=== PATIENT | female | born 1970 | race Caucasian/White ===

== ENCOUNTER 2021-04-15 07:45 | Inpatient (IN) | payer MEDICARE, MEDICAID ==
[~2021-04-15] VITALS: Ht 170.2 cm; Wt 61.6 kg
[2021-04-15] MEDS ORDERED: morphine INJ 10 MG/ML 1ML (SYR OR VIAL) IV STA (08:04)
[2021-04-15] MEDS ORDERED: ONDANSETRON 4 MG/2 ML (SDV) Z0FRAN IV PRN (08:15)
[2021-04-15] MEDS ORDERED: LACTATED RINGERS 1,000 ML IV ONE (08:15)
[2021-04-15] MEDS ORDERED: NS IV 500 ML 500 ML IV ONE (08:15)
--- NOTE | 2021-04-15 08:15 | ED General ---
General Chief Complaint: COVID19 Suspect/Confirmed Stated Complaint: WEAKNESS,SOB Nursing Triage Note: pPT BROUGHT IN BY [facility] WITH COMPLAINT OF COUGH, CP, SOA, AND VOMITING. PT WAS 76% RA ON ARRIVAL. Source of Information: Patient, EMS Exam Limitations: No Limitations History of Present Illness Date Seen by Provider: Apr 15, 2021 Time Seen by Provider: 07:46 Initial Comments Patient to the ER by [facility] with chief complaint of chest pain, hypoxia in the low 80s on room air, shortness of air vomiting. Patient states has been feeling sick for the past 2 days and has been vomiting. She has not been checked out since her symptoms began. She has had 2 doses of Covid vaccine although she does not member the name. Her primary care doctor, Dr. Valdovinos is in [place]. She is having some chest pain off and on for the past 2 days that she describes as a discomfort like something sitting on her chest. She denies a history of heart disease. She was given 324 mg of aspirin on route by EMS as well as a dose of nitroglycerin. Before the nitroglycerin was given EMS remarks that when they tried to stand her up she became diaphoretic and felt like she was going to pass out. She did not fully pass out or fall. She has no history of lung disease although he is a pack-a-day smoker. She is not diabetic. She has a history of hypertension but not hyperlipidemia. Mom had early onset coronary disease. No diarrhea constipation or dysuria. Allergies and Home Medications Allergies Coded Allergies: Penicillins (Verified Allergy, Unknown, 04/15/21) Patient Home Medication List Home Medication List Reviewed: Yes Acetaminophen (Tylenol) 325 Mg Tablet, 650 MG PO Q6H PRN for PAIN-MILD (1-4), (Reported) Entered as Reported by: MARIA ELENA HOGAN on 04/15/211538 Last Action: Continued Alprazolam (Alprazolam) 0.5 Mg Tablet, 0.5 MG PO BID PRN for ANXIETY, (Reported) Entered as Reported by: MARIA ELENA HOGAN on 04/15/211531 Last Action: Continued Buprenorphine HCl/Naloxone HCl (Buprenorphine-Nalox 8-2Mg Film) 1 Each Film, 1 FILM SQ TID, (Reported) Entered as Reported by: MARIA ELENA HOGAN on 04/15/211531 Last Action: Held Estradiol (Estradiol Patch Weekly 0.025mg/hr) 1 Each Patch.tdwk, 1 PATCH TOP TUES, (Reported) Entered as Reported by: MARIA ELENA HOGAN on 04/15/211531 Last Action: Held Fluticasone Propionate (Fluticasone Propionate) 16 Gm [place].susp, 1 SPRAY NS DAILY PRN for CONGESTION, (Reported) Entered as Reported by: MARIA ELENA HOGAN on 04/15/211531 Last Action: Continued Fluvoxamine Maleate (Fluvoxamine Maleate) 100 Mg Tablet, 100 MG PO BID, (Reported) Entered as Reported by: MARIA ELENA HOGAN on 04/15/211531 Last Action: Converted Hydroxyzine HCl (Hydroxyzine HCl) 50 Mg Tablet, 50-100 MG PO Q6H PRN for ITCHING, (Reported) Entered as Reported by: MARIA ELENA HOGAN on 04/15/211531 Last Action: Held Lisinopril (Lisinopril) 10 Mg Tablet, 10 MG PO DAILY, (Reported) Entered as Reported by: MARIA ELENA HOGAN on 04/15/211531 Last Action: Continued Meloxicam (Meloxicam) 15 Mg Tablet, 15 MG PO 1400, (Reported) Entered as Reported by: MARIA ELENA HOGAN on 04/15/211531 Last Action: Held Ondansetron HCl (Ondansetron HCl) 4 Mg Tablet, 4 MG PO Q8H PRN for NAUSEA/VOMITING-1ST LINE, (Reported) Entered as Reported by: MARIA ELENA HOGAN on 04/15/211531 Last Action: Held Oxybutynin Chloride (Oxybutynin Chloride ER) 5 Mg Tab.er.24, 5 MG PO DAILY PRN for OVERACTIVE BLADDER, (Reported) Entered as Reported by: MARIA ELENA HOGAN on 04/15/211531 Last Action: Continued Pregabalin (Pregabalin) 100 Mg Capsule, 100 MG PO TID, (Reported) Entered as Reported by: MARIA ELENA HOGAN on 04/15/211531 Last Action: Continued Sulfamethoxazole/Trimethoprim (Bactrim Ds Tablet) 1 Each Tablet, 1 EACH PO BID, (Reported) Entered as Reported by: MARIA ELENA HOGAN on 04/15/211538 Last Action: Held Review of Systems Review of Systems Constitutional: No chills, No diaphoresis EENTM: No ear discharge, No ear pain Respiratory: cough, short of breath; No wheezing Cardiovascular: No edema, No palpitations Gastrointestinal: No abdominal pain, No constipation, No diarrhea, No nausea Genitourinary: No discharge, No dysuria Musculoskeletal: No back pain, No joint pain Psychiatric/Neurological: Denies Anxiety, Denies Depressed All Other Systems Reviewed Negative Unless Noted: Yes Past Xsyfiqf-Hulqde-Ogcdpc Hx Patient Social History Tobacco Use?: Yes Tobacco type used: Cigars Smoking Status: Current Everyday Smoker Use of E-Cig and/or Vaping dev: No Substance use?: No Alcohol Use?: Yes Alcohol Frequency: Once in a while Pt feels they are or have been: No Immunizations Up To Date First/Initial COVID19 Vaccinat: JANUARY 2021 Second COVID19 Vaccination Mitchell: JANUARY 2021 Physical Exam-Suspected Sepsis Physical Exam Vital Signs Vital Signs - First Documented 04/15/21 13:35 FiO2 80 Capillary Refill : Less Than 3 Seconds Blood Pressure Mean: 77 Height, Weight, BMI Height: '" Weight: lbs. oz. kg; 25.00 BMI Method: General Appearance: Anxious, Moderate Distress Eyes: Bilateral Eye Normal Inspection, Bilateral Eye PERRL, Bilateral Eye EOMI HEENT: PERRL/EOMI, TMs Normal; No Pharynx Normal, No Moist Mucous Membranes Neck: Full Range of Motion, Normal Inspection, Non Tender Respiratory: Lungs Clear, Normal Breath Sounds, Accessory Muscle Use (Mild), Respiratory Distress (Moderate 72% on room air) Cardiovascular: Regular Rate, Rhythm, Normal Peripheral Pulses Gastrointestinal: Normal Bowel Sounds, No Organomegaly Back: Normal Inspection, No Vertebral Tenderness Extremity: Normal Capillary Refill, No Pedal Edema, Other (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) Neurologic/Psychiatric: Alert, Oriented x3 Skin: normal color, diaphoresis Focused Exam Sepsis Stage: Sepsis Possible Source: Pulmonary Lactate Level 04/15/21 08:14: Lactic Acid Level 1.68 04/15/21 14:22: Lactic Acid Level 0.66 Time of Focused Exam: 09:30 Respiratory: Lungs Clear, Normal Breath Sounds Cardiovascular: Regular Rate, Rhythm, No Edema Capillary Refill: Less Than 3 Seconds Peripheral Pulses: 2+ Radial Pulses (R), 2+ Radial Pulses (L) Skin: normal color, warm/dry Lactic Acid Level Within 3hrs of presentation: Admin fluids, Admin ABX, Blood cultures prior to ABX's, Focus exam, Lactate level Progress/Results/Core Measures Suspected Sepsis SIRS Temperature: Pulse: 95 Respiratory Rate: 20 Laboratory Tests 04/15/21 08:14: White Blood Count 16.6H Blood Pressure 92 /70 Mean: 77 04/15/21 08:14: Lactic Acid Level 1.68 04/15/21 14:22: Lactic Acid Level 0.66 Laboratory Tests 04/15/21 08:14: Creatinine 2.17H, INR Comment 1.3, Platelet Count 513H, Total Bilirubin 0.4 04/15/21 13:36: Creatinine 1.87H Results/Orders Lab Results Laboratory Tests Test 04/15/21 08:14 04/15/21 08:30 04/15/21 08:36 04/15/21 13:36 Range/Units White Blood Count 16.6 H 4.3-11.0 10^3/uL Red Blood Count 2.85 L 3.80-5.11 10^6/uL Hemoglobin 8.3 L 11.5-16.0 g/dL Hematocrit 24 L 35-52 % Mean Corpuscular Volume 83 80-99 fL Mean Corpuscular Hemoglobin 29 25-34 pg Mean Corpuscular Hemoglobin Concent 35 32-36 g/dL Red Cell Distribution Width 16.0 H 10.0-14.5 % Platelet Count 513 H 130-400 10^3/uL Mean Platelet Volume 8.5 L 9.0-12.2 fL Immature Granulocyte % (Auto) 2 % Neutrophils (%) (Auto) 89 H 42-75 % Lymphocytes (%) (Auto) 7 L 12-44 % Monocytes (%) (Auto) 1 0-12 % Eosinophils (%) (Auto) 0 0-10 % Basophils (%) (Auto) 0 0-10 % Neutrophils # (Auto) 14.8 H 1.8-7.8 10^3/uL Lymphocytes # (Auto) 1.1 1.0-4.0 10^3/uL Monocytes # (Auto) 0.2 0.0-1.0 10^3/uL Eosinophils # (Auto) 0.0 0.0-0.3 10^3/uL Basophils # (Auto) 0.0 0.0-0.1 10^3/uL Immature Granulocyte # (Auto) 0.4 H 0.0-0.1 10^3/uL Neutrophils % (Manual) 93 % Lymphocytes % (Manual) 5 % Monocytes % (Manual) 1 % Eosinophils % (Manual) 0 % Basophils % (Manual) 0 % Band Neutrophils 1 % Percent Immature Platelet Fraction 1.6 0.0-7.6 % Anisocytosis SLIGHT Elliptocytes SLIGHT Prothrombin Time 16.6 H 12.2-14.7 SEC INR Comment 1.3 0.8-1.4 Activated Partial Thromboplast Time 31 24-35 SEC D-Dimer 1.51 H 0.00-0.49 UG/ML Sodium Level 125 *L 126 L 135-145 MMOL/L Potassium Level 4.4 4.6 3.6-5.0 MMOL/L Chloride Level 94 L 98 98-107 MMOL/L Carbon Dioxide Level 17 L 15 L 21-32 MMOL/L Anion Gap 14 13 5-14 MMOL/L Blood Urea Nitrogen 23 H 23 H 7-18 MG/DL Creatinine 2.17 H 1.87 H 0.60-1.30 MG/DL Estimat Glomerular Filtration Rate 24 28 BUN/Creatinine Ratio 11 12 Glucose Level 111 H 103 70-105 MG/DL Lactic Acid Level 1.68 0.50-2.00 MMOL/L Calcium Level 8.2 L 8.1 L 8.5-10.1 MG/DL Corrected Calcium 8.9 8.5-10.1 MG/DL Magnesium Level 2.0 1.6-2.4 MG/DL Total Bilirubin 0.4 0.1-1.0 MG/DL Aspartate Amino Transf (AST/SGOT) 350 H 5-34 U/L Alanine Aminotransferase (ALT/SGPT) 139 H 0-55 U/L Alkaline Phosphatase 231 H 40-136 U/L Myoglobin 368.7 H 10.0-92.0 NG/ML Troponin I 0.142 H 0.252 H <0.028 NG/ML C-Reactive Protein High Sensitivity 31.50 H 0.00-0.50 MG/DL B-Type Natriuretic Peptide 629.9 H <100.0 PG/ML Total Protein 5.9 L 6.4-8.2 GM/DL Albumin 3.1 L 3.2-4.5 GM/DL Procalcitonin 0.42 H <0.10 NG/ML Influenza Type A (RT-PCR) Not Detected Not Detecte Influenza Type B (RT-PCR) Not Detected Not Detecte SARS-CoV-2 RNA (RT-PCR) Not Detected Not Detecte Blood Gas Puncture Site LR Blood Gas Patient Temperature 36.9 Arterial Blood pH 7.33 *L 7.37-7.43 Arterial Blood Partial Pressure CO2 35 35-45 MMHG Arterial Blood Partial Pressure O2 71 L 79-93 MMHG Arterial Blood HCO3 18 L 23-27 MMOL/L Arterial Blood Total CO2 19.3 L 21.0-31.0 MMOL/L Arterial Blood Oxygen Saturation 91 L 94-100 % Arterial Blood Base Excess -6.7 L -2.5-2.5 MMOL/L Jose G Test YES-POS Blood Gas Ventilator Setting NO Blood Gas Inspired Oxygen 4L Urine Color YELLOW Urine Clarity CLEAR Urine pH 5.5 5-9 Urine Specific [place] 1.025 H 1.016-1.022 Urine Protein TRACE H NEGATIVE Urine Glucose (UA) NEGATIVE NEGATIVE Urine Ketones NEGATIVE NEGATIVE Urine Nitrite NEGATIVE NEGATIVE Urine Bilirubin 1+ H NEGATIVE Urine Urobilinogen 1.0 < = 1.0 MG/DL Urine Leukocyte Esterase TRACE H NEGATIVE Urine RBC (Auto) NEGATIVE NEGATIVE Urine RBC NONE /HPF Urine WBC 5-10 H /HPF Urine Squamous Epithelial Cells 5-10 /HPF Urine Crystals NONE /LPF Urine Bacteria FEW H /HPF Urine Casts PRESENT /LPF Urine Hyaline Casts 10-25 H /LPF Urine Mucus NEGATIVE /LPF Urine Culture Indicated YES Urine Opiates Screen NEGATIVE NEGATIVE Urine Oxycodone Screen NEGATIVE NEGATIVE Urine Methadone Screen NEGATIVE NEGATIVE Urine Propoxyphene Screen NEGATIVE NEGATIVE Urine Barbiturates Screen NEGATIVE NEGATIVE Ur Tricyclic Antidepressants Screen NEGATIVE NEGATIVE Urine Phencyclidine Screen NEGATIVE NEGATIVE Urine Amphetamines Screen NEGATIVE NEGATIVE Urine Methamphetamines Screen NEGATIVE NEGATIVE Urine Benzodiazepines Screen POSITIVE H NEGATIVE Urine Cocaine Screen NEGATIVE NEGATIVE Urine Cannabinoids Screen NEGATIVE NEGATIVE Thyroid Stimulating Hormone (TSH) 0.36 0.35-4.94 UIU/ML Test 04/15/21 14:22 Range/Units Lactic Acid Level 0.66 0.50-2.00 MMOL/L My Orders Orders - RUBA VINCENT Cbc With Automated Diff (04/15/21 08:04) Comprehensive Metabolic Panel (04/15/21 08:04) Blood Culture (04/15/21 08:04) Sputum Culture (04/15/21 08:04) Urinalysis (04/15/21 08:04) Urine Culture (04/15/21 08:04) Protime With Inr (04/15/21 08:04) Partial Thromboplastin Time (04/15/21 08:04) Chest 1 View, Ap/Pa Only (04/15/21 08:04) Ed Iv/Invasive Line Start (04/15/21 08:04) Ed Iv/Invasive Line Start (04/15/21 08:04) Vital Signs Adult Sepsis Patie Q15M (04/15/21 08:04) Ondansetron Injection (Zofran Injectio (04/15/21 08:15) O2 (04/15/21 08:04) Remove Rings In Anticipation O (04/15/21 08:04) Lactic Acid Analyzer (04/15/21 08:04) Lactated Ringers (Lr 1000 Ml Iv Solution (04/15/21 08:15) Magnesium (04/15/21 08:04) Myoglobin Serum (04/15/21 08:04) Monitor-Rhythm Ecg Trace Only (04/15/21 08:04) Lipid Panel (04/16/21 06:00) Ed Iv/Invasive Line Start (04/15/21 08:04) BNP (04/15/21 08:04) Morphine Injection (Morphine Injection (04/15/21 08:04) Ed Iv/Invasive Line Start (04/15/21 08:04) Ns Iv 500 Ml (Sodium Chloride 0.9%) (04/15/21 08:15) Covid 19 Inhouse Test (04/15/21 08:08) Influenza A And B By Pcr (04/15/21 08:08) Arterial Blood Gas (04/15/21 08:15) Fibrin Degradation Products (04/15/21 08:15) Hs C Reactive Protein (04/15/21 08:15) Procalcitonin (Pct) (04/15/21 08:15) Manual Differential (04/15/21 08:14) Troponin I (04/15/21 09:00) Ekg Tracing (04/15/21 09:16) Cefepime Injection (Maxipime Injection) (04/15/21 10:15) Vancomycin Injection (Vancomycin Injecti (04/15/21 10:15) Cpap (Set Up) (04/15/21 10:11) Enoxaparin Injection (Lovenox Injection) (04/15/21 12:00) Morphine Injection (Morphine Injection (04/15/21 12:20) Medications Given in ED Current Medications Medications Dose Ordered Sig/Jennifer Route Start Time Stop Time Status Last Admin Dose Admin Cefepime HCl 1000 mg/Sterile Water 10 ml @ 200 mls/hr ONCE ONCE IV 04/15/21 10:15 04/15/21 10:17 DC 04/15/21 11:04 200 MLS/HR Lactated Ringer's 1,000 ml @ 0 mls/hr Q0M ONCE IV 04/15/21 08:15 04/15/21 08:16 DC 04/15/21 08:25 0 MLS/HR Ondansetron HCl 8 mg PRN PRN IV 04/15/21 08:15 04/15/21 08:26 DC 04/15/21 08:25 8 MG Sodium Chloride 500 ml @ 0 mls/hr Q0M ONCE IV 04/15/21 08:15 04/15/21 08:16 DC 04/15/21 08:26 0 MLS/HR Vancomycin HCl 1500 mg/Sodium Chloride 500 ml @ 257 mls/hr ONCE ONCE IV 04/15/21 10:15 04/15/21 12:11 DC 04/15/21 11:34 257 MLS/HR Vital Signs/I&O 04/15/21 04/15/21 04/15/21 04/15/21 07:45 07:45 09:59 13:05 Temp 36.0 Pulse 95 87 94 Resp 20 13 12 B/P (MAP) 92/70 (77) 107/87 Pulse Ox 92 97 O2 Delivery Nasal Cannula Nasal Cannula NIV Bilevel O2 Flow Rate 4.00 4.00 50.00 04/15/21 04/15/21 04/15/21 04/15/21 13:28 13:30 13:35 13:42 Pulse 102 96 Resp 16 B/P (MAP) 120/78 Pulse Ox 98 97 97 O2 Delivery Vapotherm Vapotherm Vapotherm O2 Flow Rate 80.00 30.00 70.00 FiO2 80 04/15/21 04/15/21 04/15/21 04/15/21 13:44 14:00 14:31 15:00 Temp 36.0 Pulse 98 96 93 Resp 16 15 B/P (MAP) 116/71 87/75 Pulse Ox 96 91 96 93 O2 Delivery Vapotherm Vapotherm Vapotherm O2 Flow Rate 30.00 30.00 30.00 60.00 60.00 60.00 FiO2 50 04/15/21 04/15/21 04/15/21 04/15/21 15:41 15:42 16:00 17:00 Pulse 93 92 Resp 14 13 B/P (MAP) 101/63 94/70 Pulse Ox 92 93 91 100 O2 Delivery Vapotherm Vapotherm Vapotherm Vapotherm O2 Flow Rate 30.00 30.00 30.00 30.00 50.00 50.00 50.00 FiO2 50 04/15/21 18:00 Pulse 105 Resp 16 B/P (MAP) 112/66 O2 Delivery Vapotherm O2 Flow Rate 30.00 50.00 Capillary Refill : Less Than 3 Seconds Blood Pressure Mean: 77 Progress Note #1: Time: 08:17 Progress Note Unclear whether this she has a cardiogenic issue or infection. Will get swabs for Covid and influenza, give her 1-1/2 L of fluid which combined with EMSs 1 L will be greater than 30 mL/kg, check labs chest x-ray EKG. She has already received aspirin. For her chest discomfort we will give her 2 mg of IV morphine. Progress Note #2: Time: 09:35 Progress Note mild persistent hypoxemia despite 4 L nasal cannula. Plan to put her on CPAP. She has a significantly deranged kidney function, electrolytes and an elevated troponin and some patchy edema that could be a atypical pneumonia versus fluid overload from her kidney and heart failure. She does not have a history of kidney or heart failure that she endorses however we do not have any previous labs on her. PE is a possibility so we will continue her on Lovenox therapy. ECG Initial ECG Impression Date: Apr 15, 2021 Initial ECG Impression Time: 08:36 Initial ECG Rate: 96 Initial ECG Rhythm: Normal Sinus Initial ECG Intervals: QT (536) Initial ECG Impression: Normal, Nonspecific Changes Initial ECG Comparisson: No Previous ECG Available Comment Normal sinus rhythm with right bundle branch block. Diagnostic Imaging Diagonstic Imaging: Xray Plain Films/CT/US/NM/MRI: chest Comments [facility]. [place], [place] NAME: YI STONER [facility] REC#: [id number] PT STATUS: REG ER : 1970 PHYSICIAN: RUBA VINCENT MD ADMIT DATE: 04/15/21/ER Draft Date of Exam:04/15/21 CHEST 1 VIEW, AP/PA ONLY INDICATION: Cough, chest pain, shortness of air, vomiting.. TECHNIQUE: Single view chest 9:17 AM. CORRELATION STUDY: None FINDINGS: Heart size and vasculature are borderline. Bilateral perihilar pulmonary opacities are present may reflect edema versus infiltrate. Elevated right diaphragm. IMPRESSION: 1. Borderline heart size and vasculature with bilateral perihilar opacities may reflect underlying component edema. Possibility of perihilar opacities are infectious or inflammatory process not excluded. Follow-up imaging is recommended. Dictated on workstation # [id number] Dict: 04/15/21916 Trans: 04/15/21919 BANNER [id number] Interpreted by: ROSA LLOYD DO Electronically signed by: Reviewed: Reviewed by Me Departure Communication (Admissions) Time/Spoke to Admitting Phy: 11:00 Discussed the case with Dr. Alas and she agrees to admit the patient with consultation to cardiology Time/Spoke to Consulting Phy: 11:00 Discussed the case with Dr. Rivas who came down to see the patient and agrees to consult on the case. Impression Primary Impression: Suspected pulmonary embolism Additional Impressions: Atypical pneumonia Acute respiratory failure with hypoxemia Sepsis Qualified Codes: A41.9 - Sepsis, unspecified organism; R65.20 - Severe sepsis without septic shock; J96.01 - Acute respiratory failure with hypoxia Disposition: ADMITTED INPATIENT Condition: Stable Admissions Decision to Admit Reason: Admit from ER (General) Decision to Admit/Date: Apr 15, 2021 Time/Decision to Admit Time: 10:30 RUBA VINCENT Apr 15, 2021 08:15
[2021-04-15 08:28] LABS: HEMOGLOBIN 8.3 g/dL (11.5-16.0)
[2021-04-15 08:29] LABS: BASOPHILS % (AUTO) 0 % (0-10); EOSINOPHILS % (AUTO) 0 % (0-10); HEMATOCRIT 24 % (35-52); LYMPHOCYTES # (AUTO) 1.1 10^3/uL (1.0-4.0); LYMPHOCYTES % (AUTO) 7 % (12-44); MEAN CORPUSCULAR HEMOGLOBIN 29 pg (25-34); MEAN CORPUSCULAR HGB CONC 35 g/dL (32-36); MEAN CORPUSCULAR VOLUME 83 fL (80-99); MEAN PLATELET VOLUME 8.5 fL (9.0-12.2); MONOCYTES # (AUTO) 0.2 10^3/uL (0.0-1.0); MONOCYTES % (AUTO) 1 % (0-12); NEUTROPHILS # (AUTO) 14.8 10^3/uL (1.8-7.8); NEUTROPHILS % (AUTO) 89 % (42-75); PLATELET COUNT 513 10^3/uL (130-400); WHITE BLOOD COUNT 16.6 10^3/uL (4.3-11.0)
[2021-04-15 08:39] LABS: ABG BASE EXCESS -6.7 MMOL/L (-2.5-2.5); ABG OXYGEN SATURATION 91 % (94-100); ABG PCO2 35 MMHG (35-45); ABG PO2 71 MMHG (79-93); ABG TCO2 19.3 MMOL/L (21.0-31.0)
[2021-04-15 08:40] LABS: ALLENS TEST YES-POS; INSPIRED O2 4L; VENTILATOR NO
[2021-04-15 08:41] LABS: PATIENT TEMP 36.9
[2021-04-15 08:43] LABS: ABG PH 7.33 (7.37-7.43)
[2021-04-15 08:44] LABS: ALBUMIN 3.1 GM/DL (3.2-4.5); POTASSIUM 4.4 MMOL/L (3.6-5.0)
[2021-04-15 08:45] LABS: CALCIUM 8.2 MG/DL (8.5-10.1)
[2021-04-15 08:47] LABS: TOTAL PROTEIN 5.9 GM/DL (6.4-8.2)
[2021-04-15 08:48] LABS: BILIRUBIN,TOTAL 0.4 MG/DL (0.1-1.0)
[2021-04-15 08:50] LABS: CREATININE SERUM 2.17 MG/DL (0.60-1.30)
[2021-04-15 08:51] LABS: FIBRIN DEGRADATION PRODUCTS 1.51 UG/ML (0.00-0.49); INR 1.3 (0.8-1.4); PROTHROMBIN TIME PATIENT 16.6 SEC (12.2-14.7)
[2021-04-15 08:57] LABS: CLARITY,URINE CLEAR; COLOR,URINE YELLOW; GLUCOSE, URINE (UA) NEGATIVE (NEGATIVE); KETONES,URINE NEGATIVE (NEGATIVE); LEUKOCYTE ESTERASE ,URINE TRACE (NEGATIVE); NITRITE,URINE NEGATIVE (NEGATIVE); PH,URINE 5.5 (5-9); PROTEIN,URINE TRACE (NEGATIVE)
--- NOTE | 2021-04-15 09:20 | Diagnostic Imaging Report ---
INDICATION: Cough, chest pain, shortness of air, vomiting.. TECHNIQUE: Single view chest 9:17 AM. CORRELATION STUDY: None FINDINGS: Heart size and vasculature are borderline. Bilateral perihilar pulmonary opacities are present may reflect edema versus infiltrate. Elevated right diaphragm. IMPRESSION: 1. Borderline heart size and vasculature with bilateral perihilar opacities may reflect underlying component edema. Possibility of perihilar opacities are infectious or inflammatory process not excluded. Follow-up imaging is recommended. Dictated by: Dictated on workstation # [id number]
[2021-04-15 09:30] LABS: BACTERIA,URINE FEW /HPF; BILIRUBIN,URINE 1+ (NEGATIVE)
[2021-04-15 09:46] LABS: ANISOCYTOSIS SLIGHT; BAND NEUTROPHILS 1 %; BASOPHILS % (MANUAL) 0 %; ELLIPT/OVALOCYTES SLIGHT; EOSINOPHILS % (MANUAL) 0 %; LYMPHOCYTES % (MANUAL) 5 %; MONOCYTES % (MANUAL) 1 %; NEUTROPHILS % (MANUAL) 93 %
[2021-04-15 09:59] VITALS: BP 111/69
[2021-04-15] MEDS ORDERED: CEFEPIME INJECTION 1,000 MG in WATER (STERILE) FOR INJECTION 10 ML IV ONE (10:15)
[2021-04-15] MEDS ORDERED: VANCOMYCIN INJECTION 1,500 MG in NS IV 500 ML 500 ML IV ONE (10:15)
--- NOTE | 2021-04-15 11:32 | Consultation-Cardiology ---
HPI-Cardiology Cardiology Consultation Date of Consultation 04/15/21 Date of Admission Time Seen by Provider: 11:27 Indication: Chest pain, elevated troponin HPI Patient is a 50 y/o female with history or HTN, tobaccoism, presented to the ER by [facility] with chief complaint of chest pain, hypoxia in the low 80s on room air, shortness of air and vomiting. Reports she had been feeling sick for the past 2 days. Reports associated chest pain intermittently. C/o diaphoresis and near syncope on standing, generalized weakness. Denies hx of CAD or COPD. Patient has received both doses of COVID vaccine. PCP is Dr. Valdovinos in [place], does not follow with cardiology. W/u done in ER showing acute respiratory failure with pneumonia, elevated BNP and mildly elevated troponin. Upon interviewing the patient she is visibally short of breath, denies active chest pain. Home Medications & Allergies Allergies: Coded Allergies: Penicillins (Verified Allergy, Unknown, 04/15/21) Home Medication List Reviewed: Yes [id number] Hx Patient Social History Smoking Status: Current Everyday Smoker Have you traveled recently?: No Alcohol Use?: Yes Past Medical History HTN, tobaccoism Family Medical History Significant Family History: CAD Under 55 Years Old Family Medical Hx Noncontributory Review of Systems-General Review of Systems Constitutional: see HPI, diaphoresis, malaise, weakness EENTM: see HPI, no symptoms reported; No blurred vision, No double vision Respiratory: see HPI, dyspnea on exertion, orthopnea, short of breath Cardiovascular: see HPI, chest pain; No Hx of Intervention, No palpitations, No syncope, No vascular heart diseas Gastrointestinal: see HPI; No abdominal pain Genitourinary: see HPI; No frequency, No hematuria Musculoskeletal: see HPI; No back pain Skin: other (left BKA with erythema and small wounds at stump) Psychiatric/Neurological: See HPI Reviewed Test Results Reviewed Test Results Lab Laboratory Tests 04/15/21 08:14: White Blood Count 16.6H, Red Blood Count 2.85L, Hemoglobin 8.3L, Hematocrit 24L, Mean Corpuscular Volume 83, Mean Corpuscular Hemoglobin 29, Mean Corpuscular H emoglobin Concent 35, Red Cell Distribution Width 16.0H, Platelet Count 513H, Mean Platelet Volume 8.5L, Immature Granulocyte % (Auto) 2, Neutrophils (%) (Auto) 89H, Lymphocytes (%) (Auto) 7L, Monocytes (%) (Auto) 1, Eosinophils (%) (Auto) 0, Basophils (%) (Auto) 0, Neutrophils # (Auto) 14.8H, Lymphocytes # (Auto) 1.1, Monocytes # (Auto) 0.2, Eosinophils # (Auto) 0.0, Basophils # (Auto) 0.0, Immature Granulocyte # (Auto) 0.4H, Neutrophils % (Manual) 93, Lymphocytes % (Manual) 5, Monocytes % (Manual) 1, Eosinophils % (Manual) 0, Basophils % (Manual) 0, Band Neutrophils 1, Percent Immature Platelet Fraction 1.6, Ani socytosis SLIGHT, Elliptocytes SLIGHT, Prothrombin Time 16.6H, INR Comment 1.3, Activated Partial Thromboplast Time 31, D-Dimer 1.51H, Sodium Level 125*L, Potassium Level 4.4, Chloride Level 94L, Carbon Dioxide Level 17L, Anion Gap 14, Blood Urea Nitrogen 23H, Creatinine 2.17H, Estimat Glomerular Filtration Rate 24, BUN/Creatinine Ratio 11, Glucose Level 111H, Lactic Acid Level 1.68, Calcium Level 8.2L, Corrected Calcium 8.9, Magnesium Level 2.0, Total Bilirubin 0.4, Aspartate Amino Transf (AST/SGOT) 350H, Alanine Aminotransferase (ALT/SGPT) 139H , Alkaline Phosphatase 231H, Myoglobin 368.7H, Troponin I 0.142H, C-Reactive Protein High Sensitivity 31.50H, B-Type Natriuretic Peptide 629.9H, Total Protein 5.9L, Albumin 3.1L, Procalcitonin 0.42H, Influenza Type A (RT-PCR) Not Detected, Influenza Type B (RT-PCR) Not Detected, SARS-CoV-2 RNA (RT-PCR) Not Detected 04/15/21 08:30: Blood Gas Puncture Site LR, Blood Gas Patient Temperature 36.9, Arterial Blood pH 7.33*L, Arterial Blood Partial Pressure CO2 35, Arterial Blood Partial Pressure O2 71L, Arterial Blood HCO3 18L, Arterial Blood Total CO2 19.3L, Arterial Blood Oxygen Saturation 91L, Arterial Blood Base Excess -6.7L, Jose G Test YES-POS, Blood Gas Ventilator Setting NO, Blood Gas Inspired Oxygen 4L 04/15/21 08:36: Urine Color YELLOW, Urine Clarity CLEAR, Urine pH 5.5, Urine Specific [place] 1.025H, Urine Protein TRACEH, Urine Glucose (UA) NEGATIVE, Urine Ketones NEGATI VE, Urine Nitrite NEGATIVE, Urine Bilirubin 1+H, Urine Urobilinogen 1.0, Urine Leukocyte Esterase TRACEH, Urine RBC (Auto) NEGATIVE, Urine RBC NONE, Urine WBC 5-10H, Urine Squamous Epithelial Cells 5-10, Urine Crystals NONE, Urine Bacteria FEWH, Urine Casts PRESENT, Urine Hyaline Casts 10-25H, Urine Mucus NEGATIVE, Urine Culture Indicated YES ECG Impression ECG Initial ECG Rhythm: Normal Sinus Physical Exam Physical Exam Vital Signs Vital Signs - First Documented Capillary Refill : Less Than 3 Seconds Height, Weight, BMI Height: '" Weight: lbs. oz. kg; 25.00 BMI Method: General Appearance: WD/WN, Moderate Distress HEENT: PERRL/EOMI Neck: Non Tender, Supple Respiratory: Chest Non Tender, Respiratory Distress, Rhonci Cardiovascular: Regular Rate, Rhythm, No Edema Gastrointestinal: No Pulsatile Mass, Non Tender, Soft Neurologic/Psychiatric: Alert, Oriented x3, client program manager II-XII Norm as Tested Skin: Warm/Dry A/P-Cardiology Admission Diagnosis Chest pain Acute respiratory failure HTN Tobaccoism Assessment/Plan Chest pain, nonspecific etiology, denies any active chest pain at this time. EKG shows SR with RBBB, no acute ST changes,no previous EKG for comparison. BNP el evated. Troponin mildly elevated, likely type 2 MT d/t hypoxemia. I will evaluate 2D Echo, continue to monitor cardiac enzymes. Acute respiratory failure with sepsis, atypical pneumonia versus fluid overload from kidney and heart failure. Patient had elevated edema dimer, cannot tolerate CT angiogram, she was started on empiric Lovenox. Hypoxemic upon arri madison to ER. Currently on BiPap, started on antibiotic, I will evaluate 2D Echo Hypotensive shock, probably secondary to sepsis and/or possible pulmonary embolism, evaluate venous Doppler of the lower extremities, started on Lovenox, antibiotics. Echocardiogram showed normal left ventricular size with normal contractility, moderate tricuspid regurgitation with dilated right heart chambers and PA pressure 30 to 35 mmHg Electrolyte imbalance with hyponatremia, metabolic acidosis, elevated liver en zymes and renal failure. Continue with supportive care, work-up is in progress Acute renal failure, reports no hx of CKD, continue to monitor renal function HTN,currently hypotensive secondary to sepsis, continue to monitor blood pressure. Anemia, unknown etiology, possibly anemia or chronic disease, continue to monitor H/H. Tobaccoism Family hx of CAD. 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 Has some erythema and small wound to left stump, continue to monitor. Thank you for allowing us to participate in the management of Ms. Robbins. This is Maria Esther Hanyd PA-C, as a scribe for Dr. Rivas Patient was seen and evaluated with Maria Esther, examination performed, management plan was discussed, agree with the current scribed note, I made few changes to the note using Italic font Patient was seen at bedside, significantly dyspneic. No active chest pain but reporting episodes of chest pain Elevated troponin, probably type II myocardial infarction secondary to hypoxemi a. Underlying coronary artery disease cannot be excluded at this point. Starting on Lovenox. Patient had elevated D-dimer, work-up as described above Monitor blood pressure and electrolytes Clinical Quality Measures AMI/AHF: ASA po Prior to arrival: No MARIA ESTHER THORNTON Apr 15, 2021 11:32 NICHOLAS RIVAS MD Apr 15, 2021 12:37
[2021-04-15] MEDS ORDERED: ENOXAPARIN 80 MG/0.8 ML (LOVENOX) SYR SC ONE (12:00)
[2021-04-15] MEDS ORDERED: morphine INJ 10 MG/ML 1ML (SYR OR VIAL) IVP STA (12:20)
[2021-04-15] MEDS ORDERED: morphine INJ 10 MG/ML 1ML (SYR OR VIAL) ONE (12:21)
[2021-04-15] MEDS ORDERED: ONDANSETRON 4 MG/2 ML (SDV) Z0FRAN ONE (13:23)
[2021-04-15 13:52] LABS: POTASSIUM 4.6 MMOL/L (3.6-5.0)
[2021-04-15 13:53] LABS: CALCIUM 8.1 MG/DL (8.5-10.1)
[2021-04-15 13:58] LABS: CREATININE SERUM 1.87 MG/DL (0.60-1.30)
--- NOTE | 2021-04-15 13:59 | Tele-ICU Consult ---
History of Present Illness History of Present Illness Date Seen by Provider: Apr 15, 2021 Time Seen by Provider: 13:59 Date of Admission Reason for Visit: Chest pain, elevated troponin Allergies and Home Medications Allergies Coded Allergies: Penicillins (Verified Allergy, Unknown, 04/15/21) Past Medical/Social/Family Hx Patient Social History Tobacco Use?: Yes Tobacco type used: Cigarettes Smoking Status: Current Everyday Smoker Smokeless Tobacco Frequency: Never a User Use of E-Cig and/or Vaping dev: No Substance use?: No Alcohol Use?: Yes Alcohol type: Beer Alcohol Frequency: Once in a while Pt stated abuse/neglect: No Immunizations Up To Date Influenza Vaccine Up-to-Date: No; Not Current First/Initial COVID19 Vaccinat: JANUARY 2021 Second COVID19 Vaccination Mitchell: JANUARY 2021 Tetanus Booster (TDap): Less Than 5 Years Current Status Advance Directives: No Communicates: Verbally Primary Language: Tajik Preferred Spoken Language: Tajik Is interpretation needed?: No Implanted or Applied Medical D: None Review of Systems Constitutional: see HPI Sepsis Event Evaluation Height, Weight, BMI Height: '" Weight: lbs. oz. kg; 25.82 BMI Method: Exam Exam Patient acknowledged, consented, and participated in this virtual visit which was conducted using real time audio/video Vital Signs Date Time Temp Pulse Resp B/P (MAP) Pulse Ox O2 Delivery O2 Flow Rate FiO2 04/15/21 13:44 96 Vapotherm 30.00 60.00 04/15/21 13:42 97 Vapotherm 30.00 70.00 04/15/21 13:35 97 Vapotherm 80 04/15/21 13:30 96 16 120/78 98 Vapotherm 80.00 04/15/21 09:59 87 13 50.00 04/15/21 07:45 Nasal Cannula 4.00 04/15/21 07:45 36.0 95 20 92/70 (77) 92 Nasal Cannula 4.00 Height & Weight Height: '" Weight: lbs. oz. kg; 25.82 BMI Method: General Appearance: No Apparent Distress, WD/WN, Moderate Distress HEENT: PERRL/EOMI Neck: Non Tender, Supple Respiratory: Chest Non Tender, Respiratory Distress, Rhonci Cardiovascular: Regular Rate, Rhythm, No Edema Capillary Refill: Less Than 3 Seconds Neurologic/Psychiatric: Alert, Oriented x3, transportation escort II-XII Norm as Tested Skin: Warm/Dry Results Lab Laboratory Tests 04/15/21 08:14 04/15/21 13:36 Assessment/Plan Assessment/Plan (Tele-ICU Physician , consultation) Available chart/ vitals / labs / Images reviewed H&P is from ER notes Patient's information available about PMH, Shx, Fhx allergy reviewed in EMR. ROS as per chart and RN report Now in ICU, hemodynamically stable Video assessment done using teleICU camera, rest of exam as per RN Discussed with RN. 04/15 - CP, ARF - bipap, JAYSON, elv LFT Consultants: cards A/P Acute resp failure/ hypoxemic - ? VO , ? PE - BIPAP in ER - now on Vapotherm 30L 60 % -- follow closely PNA suspected - Flu and Covid negative ( s/p vaccination x2 doses , reportedly -Cxr with no significant infiltrate - empiric abx given - follow cx JAYSON - received 2.5 L NS , good UO in [place] - follow [id number] --check serum and urine osmolality, urine NA level, TSH and T4 Shock - card vs sepsis - sepsis resuscitation done - stable BP Eev trop - likely type 2 NH - cards consulted -ECHO EF 55% RVSP 30 Elev LFTs - no abd pain as per RN - follow , additional w/up as per bedside Anemia - presente with hb 8.3 - no active bleeding Lines : (Central Line Necessity Reviewed) [place]: 04/15 OG: Nutrition: po Analgesia: Anxiety/ delirium VTE Prophylaxis: Stress Ulcer Prophylaxis: Glycemic control: Plans in collaboration with bedside consultants and IM MDs. Discussed with RN to reach out if any questions or concerns A total of 40 minutes of critical care time was devoted to this patient today, required to treat and/or prevent further deterioration of critical care condition ( as above ) PRADEEP MORTON MD Apr 15, 2021 13:59
[2021-04-15] MEDS ORDERED: LACTATED RINGERS 1,000 ML IV SCH (14:00)
[2021-04-15] MEDS ORDERED: ACETAMINOPHEN 325 MG TABLET PO PRN ×2 (14:00→18:15)
[2021-04-15] MEDS ORDERED: ONDANSETRON 4 MG/2 ML (SDV) Z0FRAN IVP PRN (14:00)
[2021-04-15] MEDS ORDERED: ACETAMINOPHEN 650 MG SUPP (TYLENOL) PR PRN (14:00)
[2021-04-15] MEDS ORDERED: VANCOMYCIN INJECTION 0.1 MG in NS (IVPB) 250 ML IV SCH (14:00)
[2021-04-15] MEDS ORDERED: EPINEPHrine 1 MG INJECTION 4 MG in NS (IVPB) 248 ML IV SCH (14:00)
[2021-04-15] MEDS: VASOPRESSIN INJECTION 20 UNIT in NS (IVPB) 100 ML IV SCH ×2 (14:11→23:40)
[2021-04-15] MEDS: NOREPINEPHRINE 8 MG/250 ML 250 ML IV SCH (14:11)
[2021-04-15 14:31] VITALS: BP 120/78
[2021-04-15] MEDS ORDERED: ALPRAZolam 0.5 MG (XANAX) TAB ONE (14:42)
--- NOTE | 2021-04-15 14:50 | Pulmonary Progress Note ---
FLO NINO MED STUDENT 04/15/21 1450: Subjective Date Seen by a Provider: Apr 15, 2021 Time Seen by a Provider: 14:30 Subjective/Events-last exam Patient awake and alert in room. Answers questions appropriately. Reports some mild shortness of breath. Denies chest pain at this time. Reports nonproductiv e cough. States became sick one week ago. She reports having several open wounds on her left stump for which she was recently taking some antibiotics prescribed by her pcp. Denies other questions or concerns at this time. Review of Systems General: No Chills, No Night Sweats; Fatigue, Malaise HEENT: No Head Aches, No Visual Changes Pulmonary: Dyspnea, Cough; No Pleuritic Chest Pain Cardiovascular: No: Palpitations Gastrointestinal: No: Nausea, Vomiting, Diarrhea, Constipation Genitourinary: No Dysuria, No Frequency; Other ([place] catheter) Musculoskeletal: No: neck pain, back pain Neurological: No: Weakness, Numbness, Change in speech, Confusion Sepsis Event Evaluation Height, Weight, BMI Height: '" Weight: lbs. oz. kg; 25.82 BMI Method: Focused Exam Lactate Level 04/15/21 08:14: Lactic Acid Level 1.68 04/15/21 14:22: Lactic Acid Level 0.66 Lactic Acid Level Laboratory Tests Test 04/15/21 14:22 Lactic Acid Level 0.66 MMOL/L (0.50-2.00) Exam Exam Patient acknowledged, consented, and participated in this virtual visit which was conducted using real time audio/video Vital Signs Date Time Temp Pulse Resp B/P (MAP) Pulse Ox O2 Delivery O2 Flow Rate FiO2 04/15/21 13:44 96 Vapotherm 30.00 60.00 04/15/21 13:42 97 Vapotherm 30.00 70.00 04/15/21 13:35 97 Vapotherm 80 04/15/21 13:30 96 16 120/78 98 Vapotherm 80.00 04/15/21 09:59 87 13 50.00 04/15/21 07:45 Nasal Cannula 4.00 04/15/21 07:45 36.0 95 20 92/70 (77) 92 Nasal Cannula 4.00 Height & Weight Height: '" Weight: lbs. oz. kg; 25.82 BMI Method: General Appearance: WD/WN, Mild Distress, Moderate Distress HEENT: PERRL/EOMI, Moist Mucous Membranes Neck: Non Tender, Supple Respiratory: Chest Non Tender, No Accessory Muscle Use, No Respiratory Distress, Wheezing Cardiovascular: Regular Rate, Rhythm, No Edema, No Murmur, Normal Peripheral Pulses Capillary Refill: Less Than 3 Seconds Peripheral Pulses: 2+ Dorsalis Pedis (R), 2+ Radial Pulses (R), 2+ Radial Pulses (L) Gastrointestinal: normal bowel sounds, non tender, soft; No distended, No guarding, No rebound, No tenderness Extremity: Normal Capillary Refill, Non Tender, No Pedal Edema, Other (Left BKA ) Neurologic/Psychiatric: Alert, Oriented x3, center customer service associate II-XII Norm as Tested Skin: Normal Color, Warm/Dry, Other (superficial wounds around left leg stump. No fluctuance or purulence noted. Open to air. ) Lymphatic: No Adenopathy Results Lab Laboratory Tests 04/15/21 08:14 04/15/21 13:36 Assessment/Plan Assessment/Plan Acute hypoxic respiratory failure + sepsis due to pneumonia -vancomycin and cefepime -IVF's -panculture -flu and covid negative -procalcitonin 0.42 -wbc 16.6 -lactic acid x 2 normal NSTEMI probably type 2 per cards -elevated troponins -EKG with RBBB -elevated BNP -echo showed EF 60-65% Acute kidney injury -creatinine 1.87, trended down a bit -IVF's Hypotension -s/p fluid bolus -continue to monitor -pressors to keep map >65 Elevated d dimer -lovenox -venous doppler bilat lower extrem Hyponatremia -Na 126 -chem panels q4hrs, correct slowly -normal saline Anemia -hgb 8.3 -unsure baseline, may be dilutional Transaminitis -continue to monitor Tobaccoism -encouraged tobacco cessation Anxiety -restart home PRADEEP Alford MD 04/16/21 1256: Supervisory-Addendum Brief Verification & Attestation Participated in pt care: history, MDM, physical Personally performed: history, MDM, supervision of care Care discussed with: Medical Student Procedures: n/a A medical student performed and documented this service. I reviewed all information documented by the medical student . Medical student performed patients physical exam . Medical decision making was done during tele-rounds with this medical student and a bedside RN . Please see my notes for details /clarification. FLO NINO MED STUDENT Apr 15, 2021 14:50 PRADEEP MORTON MD Apr 16, 2021 12:56
--- NOTE | 2021-04-15 14:57 | History & Physical-Hospitalist ---
JAYLEEN BALL A MED STUDENT 04/15/21 1457: History of Present Illness HPI/Chief Complaint 50 yo female presented to ED for SOA, cough, chest pressure, lightheadedness and nausea/vomiting for the last week. Pt has hx of HTN and tobacco use 1 ppd for over 20 years. Pt is still visibly SOA on bipap in ICU. Pt states her N/V are better since being given Zofran. Pt would like Xanax for her anxiety, states she takes it at home. 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 Source: patient Date Seen 04/15/21 Time Seen by a Provider: 14:00 Attending Physician Claudio Rodriguez MD PCP No,Local Physician Referring Physician Date of Admission Apr 15, 2021 at 10:55 Home Medications & Allergies Home Medications Reviewed patient Home Medication Reconciliation performed by pharmacy medication reconciliations vending machine technician and/or nursing. Patients Allergies have been reviewed. Allergies Allergies Coded Allergies Penicillins (Verified Allergy, Unknown, 04/15/21) Past Iogiakf-Ofeksy-Sytenh Hx Patient Social History Tobacco Use?: Yes Tobacco type used: Cigarettes Smoking Status: Current Everyday Smoker Smokeless Tobacco Frequency: Never a User Use of E-Cig and/or Vaping dev: No Substance use?: No Alcohol Use?: Yes Alcohol type: Beer Alcohol Frequency: Once in a while Pt feels they are or have been: No Immunizations Up To Date First/Initial COVID19 Vaccinat: JANUARY 2021 Second COVID19 Vaccination Mitchell: JANUARY 2021 Tetanus Booster (TDap): Less Than 5 Years Current Status Advance Directives: No Communicates: Verbally Primary Language: Kosovan Preferred Spoken Language: Kosovan Is interpretation needed?: No Implanted or Applied Medical D: None Family Medical History CAD Under 55 Years Old Review of Systems Constitutional: no symptoms reported Respiratory: cough, short of breath Cardiovascular: other Gastrointestinal: nausea Genitourinary: dysuria Physical Exam Physical Exam Vital Signs Vital Signs - First Documented 04/15/21 13:35 FiO2 80 Capillary Refill : Less Than 3 Seconds Height, Weight, BMI Height: '" Weight: lbs. oz. kg; 25.82 BMI Method: General Appearance: WD/WN, Mild Distress HEENT: PERRL/EOMI Respiratory: Chest Non Tender, Decreased Breath Sounds Cardiovascular: Regular Rate, Rhythm, Normal Peripheral Pulses Gastrointestinal: Normal Bowel Sounds, No Pulsatile Mass, Non Tender, Soft Extremity: Normal Capillary Refill, No Pedal Edema, Other Neurologic/Psychiatric: Alert, Oriented x3, No Motor/Sensory Deficits, Normal Mood/Affect, hospice nurse practitioner II-XII Norm as Tested Skin: Normal Color, Warm/Dry Results Results/Procedures Labs Laboratory Tests 04/15/21 08:14 04/15/21 13:36 04/15/21 22:50 04/16/21 05:02 Patient resulted labs reviewed. Assessment/Plan Admission Diagnosis Acute respiratory failure with sepsis d/t Atypical pneumonia Reason for Inpatient Admission: Acute respiratory failure with sepsis d/t atypical pneumonia Assessment and Plan ARF with sepsis d/t atypical pneumonia NSTEMI Acute kidney injury Hypotension Hyponatremia Anemia Elevated LFTs Tobacco Use Anxiety ARF with sepsis d/t atypical pneumonia -Vancomycin and Cefepime -IV fluids at 125 ml/hr -Awaiting urine, sputum and blood cultures NSTEMI -EKG showed RBBB -Elevated troponin -Type 2 MD according to striper spray gun Acute kidney injury -Monitor Urine Output -IV fluids Hypotension -IV fluids, improving Hyponatremia -Currently being given NaCl Anemia -Will continue to monitor, anticipate decrease with fluid resuscitation Elevated LFTs -Likely d/t sepsis, will continue to monitor Tobacco Use -Discussed tobacco cessation Anxiety -Continue Xanax 1.25mg Clinical Quality Measures AMI/AHF: ASA po Prior to arrival: CLAUDIO Silva MD 04/16/21 1401: Assessment/Plan Admission Diagnosis Admission Status: Inpatient Order (span 2 midnights) Reason for Inpatient Admission: see below Assessment and Plan Patient is a 50-year-old female who was admitted to the hospital due to severe sepsis secondary to pneumonia with acute hypoxic respiratory failure. She she is admitted to the ICU due to her profound hypoxia and required Vapotherm. We will continue her on Vanco and cefepime. She has blood cultures and sputum cultures pending. Tele-ICU was consulted. Does have an elevated D-dimer but due to her creatinine we are unable to get a CT of her chest. Hopefully with fluid resuscitation her creatinine will improve and will be able to perform CT tomorrow or the next day.Cardiology is consulted due to elevated troponin. This is likely due to profound hypoxia. She will be treated with therapeutic Lovenox though due to NSTEMI and elevated D-dimer. Echo has been ordered. Diagnosis/Problems Diagnosis/Problems (1) Acute respiratory failure with hypoxemia Status: Acute (2) Atypical pneumonia Status: Acute (3) Sepsis Status: Acute Qualifiers: Sepsis type: sepsis due to unspecified organism Sepsis acute organ dysf unction status: with acute organ dysfunction Severe sepsis acute organ dysfun ction type: acute respiratory failure Acute respiratory failure type: with hypoxia Severe sepsis shock status: without septic shock Qualified Codes: A41.9 - Sepsis, unspecified organism; R65.20 - Severe sepsis without septic shock; J96.01 - Acute respiratory failure with hypoxia (4) JAYSON (acute kidney injury) Status: Acute (5) NSTEMI (non-ST elevated myocardial infarction) Status: Acute (6) Transaminitis Status: Acute (7) Normocytic anemia Status: Acute (8) Hyponatremia Status: Acute Supervisory-Addendum Brief Verification & Attestation Participated in pt care: history, MDM, physical Personally performed: exam, history, MDM, supervision of care Care discussed with: Medical Student Procedures: n/a Results interpretation: Verified all documentation Verification and Attestation of Medical Student E/M Service A medical student performed and documented this service in my presence. I rev iewed and verified all information documented by the medical student and made modifications to such information, when appropriate. I personally performed the physical exam and medical decision making. Claudio Rodriguez, Apr 16, 2021,13:58 JAYLEEN BALL MED STUDENT Apr 15, 2021 14:57 CLAUDIO RODRIGUEZ MD Apr 16, 2021 14:01
[2021-04-15 15:32] LABS: AMPHETAMINE SCREEN, URINE NEGATIVE (NEGATIVE); BARBITURATE SCREEN URINE NEGATIVE (NEGATIVE); BENZODIAZEPINES SCREEN URINE POSITIVE (NEGATIVE); CANNABINOID SCREEN, URINE NEGATIVE (NEGATIVE); COCAINE SCREEN URINE NEGATIVE (NEGATIVE); METHADONE STAT NEGATIVE (NEGATIVE); METHAMPHETAMINE SCREEN URINE S NEGATIVE (NEGATIVE); OPIATE SCREEN URINE NEGATIVE (NEGATIVE); OXYCODONE STAT NEGATIVE (NEGATIVE); PROPOXYPHENE STAT NEGATIVE (NEGATIVE); TRICYCLIC ANTIDEPRESSANTS SCRE NEGATIVE (NEGATIVE)
[2021-04-15] MEDS ORDERED: ALPR0.5T7 PO (15:32)
[2021-04-15] MEDS ORDERED: LISI10TA25 PO (15:32)
[2021-04-15] MEDS ORDERED: ONDA-105 PO (15:32)
[2021-04-15] MEDS ORDERED: PREG100C55 PO (15:32)
[2021-04-15] MEDS ORDERED: OXYB-52 PO (15:32)
[2021-04-15] MEDS ORDERED: HYDR50TA76 PO (15:32)
[2021-04-15] MEDS ORDERED: BUPR1FIL19 SQ (15:32)
[2021-04-15] MEDS ORDERED: ESTR1PAT75 TOP (15:32)
[2021-04-15] MEDS ORDERED: FLUV100T3 PO (15:32)
[2021-04-15] MEDS ORDERED: FLUT16SP22 NS (15:32)
[2021-04-15] MEDS ORDERED: MELO15TA39 PO (15:32)
[2021-04-15] MEDS ORDERED: SULF1TAB38 PO (15:39)
[2021-04-15] MEDS ORDERED: ACET325T38 PO (15:39)
[2021-04-15] MEDS: CEFEPIME INJECTION 1,000 MG in WATER (STERILE) FOR INJECTION 10 ML IV SCH ×2 (18:10→23:30)
[2021-04-15] MEDS ORDERED: FLUTICASONE NASAL SPRAY (FLONASE) 16 GM BTL NS PRN (18:15)
[2021-04-15] MEDS ORDERED: NS IV 1000 ML 1,000 ML ONE (18:47)
[2021-04-15] MEDS: NS IV 1000 ML 1,000 ML IV SCH (19:00)
[2021-04-15] MEDS: PREGABALIN 100 MG (LYRICA) CAPSULE PO SCH (20:36)
[2021-04-15] MEDS ORDERED: NON-FORMULARY MEDICATION 1 EA EA (Fluvoxamine Maleate 100 MG) PO SCH (21:00)
[2021-04-15] MEDS ORDERED: OXYBUTYNIN (DITROPAN) 5 MG TAB PO PRN (21:00)
[2021-04-15] MEDS: RT-ALBUTEROL SULF 2.5 MG/3 ML PRE-MIX VIAL INH SCH (21:06)
[2021-04-15 23:02] LABS: POTASSIUM 4.7 MMOL/L (3.6-5.0)
[2021-04-15 23:03] LABS: CALCIUM 8.2 MG/DL (8.5-10.1)
[2021-04-15 23:08] LABS: CREATININE SERUM 1.29 MG/DL (0.60-1.30)
[2021-04-16] MEDS: RT-ALBUTEROL SULF 2.5 MG/3 ML PRE-MIX VIAL INH SCH ×4 (01:50→21:02)
[2021-04-16] MEDS: NS IV 1000 ML 1,000 ML IV SCH (03:24)
[2021-04-16 05:21] LABS: BASOPHILS % (AUTO) 0 % (0-10); EOSINOPHILS # (AUTO) 0.2 10^3/uL (0.0-0.3); EOSINOPHILS % (AUTO) 1 % (0-10); HEMATOCRIT 23 % (35-52); HEMOGLOBIN 7.8 g/dL (11.5-16.0); LYMPHOCYTES # (AUTO) 0.8 10^3/uL (1.0-4.0); LYMPHOCYTES % (AUTO) 6 % (12-44); MEAN CORPUSCULAR HEMOGLOBIN 28 pg (25-34); MEAN CORPUSCULAR HGB CONC 34 g/dL (32-36); MEAN CORPUSCULAR VOLUME 82 fL (80-99); MEAN PLATELET VOLUME 8.7 fL (9.0-12.2); MONOCYTES # (AUTO) 0.2 10^3/uL (0.0-1.0); MONOCYTES % (AUTO) 2 % (0-12); NEUTROPHILS # (AUTO) 11.8 10^3/uL (1.8-7.8); NEUTROPHILS % (AUTO) 91 % (42-75); PLATELET COUNT 450 10^3/uL (130-400); WHITE BLOOD COUNT 13.1 10^3/uL (4.3-11.0)
[2021-04-16 05:29] LABS: POTASSIUM 4.7 MMOL/L (3.6-5.0)
[2021-04-16 05:30] LABS: ALBUMIN 2.9 GM/DL (3.2-4.5)
[2021-04-16 05:31] LABS: CALCIUM 8.3 MG/DL (8.5-10.1)
[2021-04-16 05:32] LABS: TOTAL PROTEIN 5.4 GM/DL (6.4-8.2)
[2021-04-16 05:34] LABS: BILIRUBIN,TOTAL 0.2 MG/DL (0.1-1.0)
[2021-04-16 05:35] LABS: PHOSPHORUS 2.7 MG/DL (2.3-4.7)
[2021-04-16 05:36] LABS: CREATININE SERUM 0.92 MG/DL (0.60-1.30)
[2021-04-16] MEDS: CEFEPIME INJECTION 1,000 MG in WATER (STERILE) FOR INJECTION 10 ML IV SCH ×4 (06:11→23:14)
--- NOTE | 2021-04-16 08:08 | Diagnostic Imaging Report ---
EXAMINATION: Chest 1 view HISTORY: Pneumonia. COMPARISON: 04/15/2021. FINDINGS: There is interval increase in interstitial and alveolar opacities throughout the right lung, greatest in the right perihilar region. Stable opacities are seen in the left perihilar region. Stable cardiac silhouette. No pleural effusion or pneumothorax. IMPRESSION: 1. Worsening pneumonia in the right lung with stable opacities in the left perihilar region. Dictated by: Dictated on workstation # [id number]
--- NOTE | 2021-04-16 08:17 | Pulmonary Progress Note ---
FLO NINO MED STUDENT 04/16/21 0817: Subjective Date Seen by a Provider: Apr 16, 2021 Time Seen by a Provider: 07:05 Subjective/Events-last exam Reports sleeping well overnight. Denies chest pain, SOB, nausea, vomiting, fevers, headache, and palpitations. Has no questions or further concerns at this point in time. Review of Systems General: No Chills, No Night Sweats HEENT: No Head Aches, No Visual Changes Pulmonary: No Dyspnea, No Cough Cardiovascular: No: Chest Pain, Palpitations, Edema Gastrointestinal: No: Nausea, Vomiting, Abdominal Pain Genitourinary: No Dysuria, No Frequency Musculoskeletal: No: neck pain, back pain Neurological: No: Weakness, Numbness, Change in speech, Confusion Sepsis Event Evaluation Height, Weight, BMI Height: '" Weight: lbs. oz. kg; 25.82 BMI Method: Focused Exam Lactate Level 04/15/21 08:14: Lactic Acid Level 1.68 04/15/21 14:22: Lactic Acid Level 0.66 Time of Focused Exam: 09:30 Exam Exam Patient acknowledged, consented, and participated in this virtual visit which was conducted using real time audio/video Vital Signs Date Time Temp Pulse Resp B/P (MAP) Pulse Ox O2 Delivery O2 Flow Rate FiO2 04/16/21 06:58 97 Vapotherm 30.00 60 04/16/21 06:00 103 13 95/66 89 Vapotherm 35.00 60.00 04/16/21 05:00 105 12 114/65 97 Vapotherm 35.00 60.00 04/16/21 04:00 98 14 104/67 97 Vapotherm 35.00 60.00 04/16/21 04:00 94 Vapotherm 35.00 60 04/16/21 03:34 Vapotherm 35.00 60.00 04/16/21 03:00 36.4 Vapotherm 30.00 60.00 04/16/21 02:00 98 14 104/64 93 Vapotherm 30.00 60.00 04/16/21 01:50 96 Vapotherm 30.00 60 04/16/21 01:00 96 14 108/69 94 Vapotherm 30.00 60.00 04/16/21 01:00 96 04/16/21 00:00 96 13 106/65 95 Vapotherm 30.00 60.00 04/15/21 23:38 93 Vapotherm 30.00 60 04/15/21 23:13 36.7 Vapotherm 30.00 60.00 04/15/21 23:00 98 15 104/61 94 Vapotherm 30.00 60.00 04/15/21 22:00 100 16 106/60 93 Vapotherm 30.00 60.00 04/15/21 21:06 93 Vapotherm 30.00 60 04/15/21 21:00 102 17 101/77 96 Vapotherm 30.00 60.00 04/15/21 20:59 94 Vapotherm 30.00 60 04/15/21 20:15 Vapotherm 30.00 60.00 04/15/21 20:09 36.6 04/15/21 19:00 98 04/15/21 19:00 98 17 110/66 95 Vapotherm 30.00 50.00 04/15/21 18:00 105 16 112/66 Vapotherm 30.00 50.00 04/15/21 17:00 92 13 94/70 100 Vapotherm 30.00 50.00 04/15/21 16:00 93 14 101/63 91 Vapotherm 30.00 50.00 04/15/21 15:42 93 Vapotherm 30.00 50 04/15/21 15:41 92 Vapotherm 30.00 50.00 04/15/21 15:00 93 15 87/75 93 Vapotherm 30.00 60.00 04/15/21 14:31 36.0 96 96 50 04/15/21 14:00 98 16 116/71 91 Vapotherm 30.00 60.00 04/15/21 13:44 96 Vapotherm 30.00 60.00 04/15/21 13:42 97 Vapotherm 30.00 70.00 04/15/21 13:35 97 Vapotherm 80 04/15/21 13:30 96 16 120/78 98 Vapotherm 80.00 04/15/21 13:28 102 04/15/21 13:05 94 12 107/87 97 NIV Bilevel 04/15/21 09:59 87 13 50.00 I & O 04/16/21 07:00 Intake Total 8490 ml Output Total 5000 ml Balance 3490 ml Height & Weight Height: '" Weight: lbs. oz. kg; 25.82 BMI Method: General Appearance: No Apparent Distress, WD/WN HEENT: PERRL/EOMI, Moist Mucous Membranes Neck: Full Range of Motion, Normal Inspection, Non Tender Respiratory: Chest Non Tender, No Accessory Muscle Use, No Respiratory Distress, Wheezing Cardiovascular: Regular Rate, Rhythm, No Edema, Normal Peripheral Pulses Capillary Refill: Less Than 3 Seconds Peripheral Pulses: 2+ Dorsalis Pedis (R), 2+ Radial Pulses (R), 2+ Radial Pulses (L) Gastrointestinal: normal bowel sounds, non tender, soft; No distended, No guarding, No rebound, No tenderness Extremity: Normal Capillary Refill, Non Tender, No Pedal Edema, Other (Left BK A) Neurologic/Psychiatric: Alert, Oriented x3, No Motor/Sensory Deficits Skin: Normal Color, Warm/Dry, Other (wound to left stump slightly erythematous non draining. Open to air. ) Lymphatic: No Adenopathy Results Lab Laboratory Tests 04/15/21 08:14 04/15/21 13:36 04/15/21 22:50 04/16/21 05:02 Assessment/Plan Assessment/Plan Acute hypoxic respiratory failure + sepsis due to pneumonia -vancomycin and cefepime -SL IVF's -panculture -flu and covid negative -procalcitonin 0.42 - -wbc 13.1 today NSTEMI probably type 2 per cards -elevated troponins -EKG with RBBB -elevated BNP -echo showed EF 60-65% Acute kidney injury -improved -creatinine 0.92 today, trended down a bit -IVF's Hypotension -off pressors -s/p fluid resuscitated -continue to monitor -pressors to keep map >65 Elevated d dimer -lovenox -venous doppler bilat lower extrem Hyponatremia -improved -Na 133 -normal saline, continue to monitor Anemia -hgb 7.8, trended down a bit -continue to monitor Transaminitis - stable, continue to monitor HTN -lisinopril Tobaccoism -encouraged tobacco cessation Anxiety -restart home PRADEEP Alford MD 04/16/21 1256: Supervisory-Addendum Brief Verification & Attestation Participated in pt care: history, MDM, physical Personally performed: history, MDM, supervision of care Care discussed with: Medical Student Procedures: n/a A medical student performed and documented this service. I reviewed all information documented by the medical student . Medical student performed patients physical exam . Medical decision making was done during tele-rounds with this medical student and a bedside RN . Please see my notes for details /clarification. . FLO NINO MED STUDENT Apr 16, 2021 08:17 PRADEEP MORTON MD Apr 16, 2021 12:56
[2021-04-16] MEDS: NOREPINEPHRINE 8 MG/250 ML 250 ML IV SCH (08:49)
[2021-04-16] MEDS: PREGABALIN 100 MG (LYRICA) CAPSULE PO SCH ×3 (08:50→20:41)
[2021-04-16] MEDS: ASPIRIN 81 MG CHEW (CHILDREN'S ASA) PO SCH (08:50)
[2021-04-16] MEDS: lisINopril 10 MG (PRINIVIL) TABLET PO SCH (08:51)
--- NOTE | 2021-04-16 09:28 | Progress Note - Hospitalist ---
JAYLEEN BALL A MED STUDENT 04/16/21 0928: Subjective HPI/CC On Admission Date Seen by Provider: Apr 16, 2021 Time Seen by Provider: 08:10 50 yo female presented to ED for SOA, cough, chest pressure, lightheadedness and nausea/vomiting for the last week. Pt has hx of HTN and tobacco use 1 ppd for over 20 years. Pt is still visibly SOA on bipap in ICU. Pt states her N/V are better since being given Zofran. Pt would like Xanax for her anxiety, states she takes it at home. 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 Subjective/Events-last exam Pt is up in bed this morning, states she slept well last noc. Pt reports her SOA has improved, but her cough is more frequent and productive. Confirms persistent chest pressure since admission, but denies chest pain. Pt states her anxiety has improved since administration of Xanax. Pt states she has no appetite and refused to eat her breakfast. Denies having BM since admission. Denies N/V/D. Review of Systems General: No Chills Pulmonary: Dyspnea, Cough Cardiovascular: No: Chest Pain, Palpitations Gastrointestinal: No: Nausea, Vomiting, Abdominal Pain, Diarrhea, Constipation Focused Exam Lactate Level 04/15/21 08:14: Lactic Acid Level 1.68 04/15/21 14:22: Lactic Acid Level 0.66 Time of Focused Exam: 09:30 Objective Exam Vital Signs Vital Signs Date Time Temp Pulse Resp B/P (MAP) Pulse Ox O2 Delivery O2 Flow Rate FiO2 04/16/21 08:00 36.6 04/16/21 06:58 97 Vapotherm 30.00 60 04/16/21 06:00 103 13 95/66 Capillary Refill : Less Than 3 Seconds General Appearance: No Apparent Distress, WD/WN HEENT: PERRL/EOMI Respiratory: Chest Non Tender, No Accessory Muscle Use, No Respiratory Distress, Crackles (diffuse bilaterally), Wheezing (inspiratory wheezing bilaterally) Cardiovascular: Regular Rate, Rhythm, No Murmur, Normal Peripheral Pulses Gastrointestinal: Normal Bowel Sounds, No Organomegaly, No Pulsatile Mass, Non Tender, Soft Extremity: Normal Capillary Refill, Normal Inspection, Non Tender, No Calf Tenderness, No Pedal Edema, Other (BKA on left) Neurologic/Psychiatric: Alert, Oriented x3, No Motor/Sensory Deficits, Normal 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 Assessment/Plan Assessment and Plan Assess & Plan/Chief Complaint ARF with sepsis d/t atypical pneumonia NSTEMI Acute kidney injury Hypotension Hyponatremia Anemia Elevated LFTs Tobacco Use Anxiety ARF with sepsis d/t atypical pneumonia -Vancomycin and Cefepime -Awaiting urine, sputum and blood cultures -Repeat CXR ordered for today NSTEMI -Cardiology consulted -EKG showed RBBB -Elevated troponin -Type 2 MS according to applications programmer Acute kidney injury -Improving -Urine output 1.17ml/kg/hr -BUN 14, Cr 0.92, decreased from yesterday Hypotension -IV fluids, improving Hyponatremia -Na 133 today, improving Anemia -H&H 7.8 and 23, decreased from yesterday likely d/t dilution -Will continue to monitor Elevated LFTs -LFTs improving Tobacco Use -Discussed tobacco cessation Anxiety -Improved -Continue Xanax from home Clinical Quality Measures AMI/AHF: ASA po Prior to arrival: No SWATI RODRIGUEZ MD 04/20/21 1345: Assessment/Plan Assessment and Plan Assess & Plan/Chief Complaint Patient reports feeling somewhat better though slightly more confused today. Has poor appetite. Still awaiting culture so we will continue on broad-spectrum antibiotics. Labs otherwise improving. Supervisory-Addendum Brief Verification & Attestation Participated in pt care: history, MDM, physical Personally performed: exam, history, MDM, supervision of care Care discussed with: Medical Student Procedures: n/a Results interpretation: Verified all documentation Verification and Attestation of Medical Student E/M Service A medical student performed and documented this service in my presence. I reviewed and verified all information documented by the medical student and made modifications to such information, when appropriate. I personally performed the physical exam and medical decision making. Swati Rodriguez, Apr 20, 2021,13:44 JAYLEEN BALL MED STUDENT Apr 16, 2021 09:28 SWATI RODRIGUEZ MD Apr 20, 2021 13:45
[2021-04-16] MEDS: VANCOMYCIN 1 GM/NS 250 ML IVPB IV SCH ×4 (10:41→20:41)
[2021-04-16] MEDS: ENOXAPARIN 80 MG/0.8 ML (LOVENOX) SYR SC SCH ×2 (10:41→20:41)
--- NOTE | 2021-04-16 10:57 | Tele-ICU Progress Note ---
Subjective Date Seen by a Provider: Apr 16, 2021 Time Seen by a Provider: 10:12 Sepsis Event Evaluation Height, Weight, BMI Height: '" Weight: lbs. oz. kg; 25.82 BMI Method: Focused Exam Lactate Level 04/15/21 08:14: Lactic Acid Level 1.68 04/15/21 14:22: Lactic Acid Level 0.66 Time of Focused Exam: 09:30 Exam Exam Patient acknowledged, consented, and participated in this virtual visit which was conducted using real time audio/video Vital Signs Date Time Temp Pulse Resp B/P (MAP) Pulse Ox O2 Delivery O2 Flow Rate FiO2 04/16/21 08:00 94 Vapotherm 35.00 60 04/16/21 08:00 36.6 04/16/21 07:10 63 04/16/21 07:00 101 04/16/21 07:00 103 13 108/61 94 Vapotherm 35.00 60.00 04/16/21 06:58 97 Vapotherm 30.00 60 04/16/21 06:00 103 13 95/66 89 Vapotherm 35.00 60.00 04/16/21 05:00 105 12 114/65 97 Vapotherm 35.00 60.00 04/16/21 04:00 98 14 104/67 97 Vapotherm 35.00 60.00 04/16/21 04:00 94 Vapotherm 35.00 60 04/16/21 03:34 Vapotherm 35.00 60.00 04/16/21 03:00 36.4 Vapotherm 30.00 60.00 04/16/21 02:00 98 14 104/64 93 Vapotherm 30.00 60.00 04/16/21 01:50 96 Vapotherm 30.00 60 04/16/21 01:00 96 14 108/69 94 Vapotherm 30.00 60.00 04/16/21 01:00 96 04/16/21 00:00 96 13 106/65 95 Vapotherm 30.00 60.00 04/15/21 23:38 93 Vapotherm 30.00 60 04/15/21 23:13 36.7 Vapotherm 30.00 60.00 04/15/21 23:00 98 15 104/61 94 Vapotherm 30.00 60.00 04/15/21 22:00 100 16 106/60 93 Vapotherm 30.00 60.00 04/15/21 21:06 93 Vapotherm 30.00 60 04/15/21 21:00 102 17 101/77 96 Vapotherm 30.00 60.00 04/15/21 20:59 94 Vapotherm 30.00 60 04/15/21 20:15 Vapotherm 30.00 60.00 04/15/21 20:09 36.6 04/15/21 19:00 98 04/15/21 19:00 98 17 110/66 95 Vapotherm 30.00 50.00 04/15/21 18:00 105 16 112/66 Vapotherm 30.00 50.00 04/15/21 17:00 92 13 94/70 100 Vapotherm 30.00 50.00 04/15/21 16:00 93 14 101/63 91 Vapotherm 30.00 50.00 04/15/21 15:42 93 Vapotherm 30.00 50 04/15/21 15:41 92 Vapotherm 30.00 50.00 04/15/21 15:00 93 15 87/75 93 Vapotherm 30.00 60.00 04/15/21 14:31 36.0 96 96 50 04/15/21 14:00 98 16 116/71 91 Vapotherm 30.00 60.00 04/15/21 13:44 96 Vapotherm 30.00 60.00 04/15/21 13:42 97 Vapotherm 30.00 70.00 04/15/21 13:35 97 Vapotherm 80 04/15/21 13:30 96 16 120/78 98 Vapotherm 80.00 04/15/21 13:28 102 04/15/21 13:05 94 12 107/87 97 NIV Bilevel I & O 04/16/21 07:00 Intake Total 8490 ml Output Total 5000 ml Balance 3490 ml Height & Weight Height: '" Weight: lbs. oz. kg; 25.82 BMI Method: General Appearance: No Apparent Distress, WD/WN HEENT: PERRL/EOMI Neck: Full Range of Motion, Normal Inspection, Non Tender Respiratory: Chest Non Tender, No Accessory Muscle Use, No Respiratory Distress, Crackles (diffuse bilaterally), Wheezing (inspiratory wheezing bilaterally) Cardiovascular: Regular Rate, Rhythm, No Murmur, Normal Peripheral Pulses Capillary Refill: Less Than 3 Seconds Peripheral Pulses: 2+ Dorsalis Pedis (R), 2+ Radial Pulses (R), 2+ Radial Pulses (L) Gastrointestinal: normal bowel sounds, non tender, soft; No distended, No guarding, No rebound, No tenderness Extremity: Normal Capillary Refill, Normal Inspection, Non Tender, No Calf Tenderness, No Pedal Edema, Other (BKA on left) Neurologic/Psychiatric: Alert, Oriented x3, No Motor/Sensory Deficits, Normal 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, 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 Norm as Tested Skin: Normal Color, Warm/Dry, Other (left BKA wound with dressing) Lymphatic: No Adenopathy Results Lab Laboratory Tests 04/15/21 08:14 04/15/21 13:36 04/15/21 22:50 04/16/21 05:02 Assessment/Plan Assessment/Plan (Tele-ICU Physician , Progress Note ) Available chart/ vitals / labs / Images reviewed Video assessment done using teleICU camera, rest of exam as per RN Discussed with RN , EXAM PER RN Events overnight : Afebrile I/O = pos 3l Drips: ns 100 Pressors: , hemodynamically stable Consultants: Hospital course: 04/15 - CP, ARF - bipap, JAYSON, elv LFT vapotherm 30L 60 % 04/15 - vapotherm 35L 60 % Consultants: cards A/P Acute resp failure/ hypoxemic - ? VO , ? PE - BIPAP in ER - now on Vapotherm 35L 60 % - to BIPAP tiday ( taking off vapotherm -- follow closely , cxr worsening - will stop IVF PNA suspected - Flu and Covid negative ( s/p vaccination x2 doses , reportedly -Cxr with no significant infiltrate - empiric abx given - follow cx - cxr worsening JAYSON - received 6 l NS - resolved [id number] on admission = up to 133 tin 24 h Shock - card vs sepsis - sepsis resuscitation done - stable BP Eev trop - likely type 2 MD - cards consulted -ECHO EF 55% RVSP 30 -AC - lovenox full dose Elev LFTs - no abd pain as per RN -- improving follow , additional w/up as per bedside Anemia - presente with hb 8.3 - no active bleeding , trending down Lines : periph (Central Line Necessity Reviewed) Umana: 04/15 OG: Nutrition: po Analgesia: Anxiety/ delirium VTE Prophylaxis: lovenox Stress Ulcer Prophylaxis: Glycemic control: Plans in collaboration with bedside consultants and IM MDs. Discussed with RN to reach out if any questions or concerns A total of 40 minutes of critical care time was devoted to this patient today, required to treat and/or prevent further deterioration of critical care condition ( as above ) PRADEEP MORTON MD Apr 16, 2021 10:57
[2021-04-16] MEDS ORDERED: VANCOMYCIN 1 GM/NS 250 ML IVPB IV SCH ×2 (12:00)
[2021-04-16] MEDS ORDERED: ENOXAPARIN 80 MG/0.8 ML (LOVENOX) SYR SC SCH (12:00)
[2021-04-16] MEDS: guaiFENesin (MUCINEX) 600 MG TAB PO SCH ×2 (12:05→20:41)
[2021-04-16] MEDS: guaiFENesin/DM (ROBITUSSIN DM) 10 ML UDC PO PRN (12:05)
--- NOTE | 2021-04-16 12:10 | Cardiology Progress Note ---
Subjective Date Seen by Provider: Apr 16, 2021 Time Seen by Provider: 12:06 Subjective/Events-last exam Patient is laying down in bed, still hypoxemic. No chest pain Review of Systems General: No Chills, No Night Sweats; Fatigue, Malaise; No Appetite, No Other HEENT: No Head Aches, No Visual Changes, No Eye Pain, No Ear Pain, No Dysphasia, No Sinus Congestion, No Post Nasal Drip, No Sore Throat, No Other Pulmonary: Dyspnea; No Cough, No Pleuritic Chest Pain, No Other Cardiovascular: No: Chest Pain, Palpitations, Orthopnea, Paroxysmal Noc. Dyspnea, Edema, Lt Headedness, Other Focused Exam Lactate Level 04/15/21 08:14: Lactic Acid Level 1.68 04/15/21 14:22: Lactic Acid Level 0.66 Time of Focused Exam: 09:30 Objective-Cardiology Exam Last Set of Vital Signs Vital Signs 04/16/21 04/16/21 08:00 10:00 Temp 36.6 Pulse 112 Resp 11 B/P (MAP) 114/59 Pulse Ox 64 O2 Delivery Vapotherm O2 Flow Rate 35.00 60.00 FiO2 60 I&O Intake and Output 04/16/21 00:00 Intake Total 6010 ml Output Total 2100 ml Balance 3910 ml Intake Oral 1000 ml IV Total 5010 ml Output Urine Total 2100 ml Daily Weight Change Yes, 2-13 lbs General: Alert, Oriented X3, Cooperative HEENT: Atraumatic, PERRLA Neck: Supple, No JVD, No Thyromegaly Lungs: Normal Air Movement, Other (Bilateral rhonchi) Heart: Regular Rate, Normal S1, Normal S2, No Murmurs Abdomen: Normal Bowel Sounds, Soft, No Tenderness, No Hepatosplenomegaly, No Masses Extremities: No Clubbing, No Cyanosis, No Edema, Normal Pulses, No Tenderness/Swelling Skin: No Rashes, No Breakdown, No Significant Lesion Neuro: Normal Speech, Normal Tone, Sensation Intact Psych/Mental Status: Mental Status NL, Mood NL Results Lab Laboratory Tests 04/15/21 13:36 04/15/21 22:50 04/16/21 05:02 A/P-Cardiology Admission Diagnosis Chest pain Acute respiratory failure HTN Tobaccoism Assessment/Plan Chest pain, nonspecific etiology, denies any active chest pain at this time. EKG shows SR with RBBB, no acute ST changes,no previous EKG for comparison. BNP elevated. Troponin mildly elevated, likely type 2 IA d/t hypoxemia. Conservati ve management is recommended at this time. Continue to monitor Acute respiratory failure with sepsis, atypical pneumonia versus fluid overload from kidney and heart failure. Patient had elevated edema dimer, cannot tolerate CT angiogram, she was started on empiric Lovenox. Currently on Vapotherm. Managed by primary care team Hypotension, currently blood pressure is better. Continue to monitor Echocardiogram showed normal left ventricular size with normal contractility, moderate tricuspid regurgitation with dilated right heart chambers and PA pressure 30 to 35 mmHg Acute renal failure, reports no hx of CKD, continue to monitor renal function HTN,currently hypotensive secondary to sepsis, continue to monitor blood pressure. Anemia, unknown etiology, possibly anemia or chronic disease, continue to monitor H/H. Tobaccoism Family hx of CAD. 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 Has some erythema and small wound to left stump, continue to monitor. NICHOLAS ACEVEDO MD Apr 16, 2021 12:10
[2021-04-16] MEDS: VASOPRESSIN INJECTION 20 UNIT in NS (IVPB) 100 ML IV SCH ×2 (12:57→23:13)
[2021-04-16 13:19] LABS: ABG BASE EXCESS -1.7 MMOL/L (-2.5-2.5); ABG OXYGEN SATURATION 97 % (94-100); ABG PCO2 37 MMHG (35-45); ABG PO2 87 MMHG (79-93); ABG TCO2 23.7 MMOL/L (21.0-31.0)
[2021-04-16 13:20] LABS: ALLENS TEST YES-POS; INSPIRED O2 60%; PATIENT TEMP 36.4; VENTILATOR NO
--- NOTE | 2021-04-16 13:57 | Diagnostic Imaging Report ---
PROCEDURE: US Venous Lower Ext Martir. TECHNIQUE: Multiple real-time grayscale images were obtained over the lower extremities in various projections, bilaterally. Additional duplex Doppler and color Doppler images were also obtained. INDICATION: Shortness of breath and pneumonia. FINDINGS: The common femoral, femoral, popliteal veins and tibial veins demonstrate normal response to compression, augmentation and Valsalva. There are no abnormal lower extremity fluid collections or masses. IMPRESSION: No evidence of deep venous thrombosis in either lower extremity. Dictated by: Dictated on workstation # [id number]
--- NOTE | 2021-04-16 14:44 | Physical Therapy Evaluation ---
PT Evaluation-General Medical Diagnosis Admission Date Apr 15, 2021 at 10:55 Medical Diagnosis: Acute respiratory failure with sepsis d/t Atypical pneumonia Onset Date: Apr 15, 2021 Therapy Diagnosis Therapy Diagnosis: impaired mobility, strength, endurance Precautions Precautions/Isolations: Fall Prevention, Standard Precautions Referral Physician: Michael Reason for Referral: Evaluation/Treatment Medical History Pertinent Medical History: Smoking Additional Medical History previous left BKA Reviewed History: Yes Social History Entry Into Home: Stairs With Railing PT Steps Into Home: 6 Prior Prior Level of Function SCALE: Activities may be completed with or without assistive devices. 8-Koaunfcjvk-jhcemfv completes the activity by him/herself with no assistance from a helper. 5-Set-up or Clean-up Assistance-helper sets up or cleans up; patient completes activity. [place] assists only prior to or following the activity. 4-Supervision or Touching Assistance-helper provides verbal cues and/or touching/steadying and/or contact guard assistance as patient completes activity. Assistance may be provided throughout the activity or intermittently. 3-Partial/Moderate Assistance-helper does LESS THAN HALF the effort. [place] lifts, holds or supports trunk or limbs, but provides less than half the effort. 2-Substantial/Maximal Assistance-helper does MORE THAN HALF the effort. [place] lifts or holds trunk or limbs and provides more than half the effort. 5-Myiwzcsev-xifbvh does ALL the effort. Patient does none of the effort to complete the activity. Or, the assistance of 2 or more helpers is required for the patient to complete the activity. If activity was not attempted, code reason: 7-Patient Refused. 9-Not Applicable-not attempted and the patient did not perform the activity before the current illness, exacerbation or injury. 10-Not Attempted due to Environmental Limitations-(lack of equipment, weather restraints, etc.). 88-Not Attempted due to Medical Conditions or Safety Concerns. Bed Mobility: 6 Transfers (B,C,W/C): 6 Gait: 6 Indoor Mobility (Ambulation): Independent Prior Devices Use: Walker Patient also uses a left side prosthetic leg PT Evaluation-Current Subjective Patient in bed pre tx, agrees to PT, has unrated low back pain. Pt/Family Goals none stated, patient confused Objective Patient Orientation: Person, Confused Attachments: Oxygen (vapotherm), [place]mana Catheter, IV ROM/Strength ROM Lower Extremities WNL Strength Lower Extremities RLE (hip flexion 3+/5, knee flexion 4/5, knee extension 4/5, dorsiflexion 4/5) Sensory Hearing: Functional Sensation Right Lower Extremit: Impaired Transfers Roll Left to Right (QC): 6 Sit to Lying (QC): 4 Lying to Sitting/Side of Bed(Q: 4 Sit to Stand (QC): 3 SBA for supine <-> sit, min assist for sit to stand. Patient is able to stand for a few minutes, states she feels she will fall if she tries to step forward. Patient is able to take a couple of side hops toward the head of the bed. Balance Sitting Static: Normal Sitting Dynamic: Normal Standing Static: Fair Standing Dynamic: Fair Treatment BLE supine exercises x20 (AP, only right side, HS) Assessment/Needs Patient has impaired mobility, strength, endurance. Patient in bed post tx with nurse call, phone, tray, all needs met. Patient is confused. 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 Time Frame: Apr 23, 2021 Roll Left & Right (QC): 6 Sit to Lying (QC): 6 Lying-Sitting on Side/Bed(QC): 6 Sit to Stand (QC): 4 Chair/Ekh-bu-Mrfdg Xfer(QC): 4 Walk 10 feet (QC): 4 PT Plan Problem List Problem List: Activity Tolerance, Functional Strength, Safety, Balance, Gait, Transfer, Bed Mobility, ROM Treatment/Plan Treatment Plan: Continue Plan of Care Treatment Plan: Bed Mobility, Education, Functional Activity Deven, Functional Strength, Gait, Safety, Therapeutic Exercise, Transfers Treatment Duration: Apr 23, 2021 Frequency: 6 times per week Estimated Hrs Per Day: .25 hour per day Patient and/or Family Agrees t: Yes Safety Risks/Education Patient Education: Transfer Techniques, Correct Positioning, Safety Issues Teaching Recipient: Patient Teaching Methods: Demonstration, Discussion Response to Teaching: Reinforcement Needed Discharge Recommendations Plan Patient will perform bed mobility and transfer training, balance and endurance training, functional strengthening, stair training, gait training, and education, to improve functional mobility and independence at home. Therapy Discharge Recommendati: Intermittent Supervision, Home & Family, Post Acute PT Time/GCodes Time In: 1401 Time Out: 1415 Total Billed Treatment Time: 14 Total Billed Treatment 1 visit HALEY FERRARI PT Apr 16, 2021 14:44
[2021-04-17] MEDS: ALPRAZolam 0.5 MG (XANAX) TAB PO PRN (00:16)
[2021-04-17] MEDS: guaiFENesin/DM (ROBITUSSIN DM) 10 ML UDC PO PRN ×2 (00:16→20:23)
[2021-04-17] MEDS ORDERED: RT-ALBUTEROL SULF 2.5 MG/3 ML PRE-MIX VIAL INH PRN (00:30)
[2021-04-17] MEDS ORDERED: RT-ALBUTEROL SULF 2.5 MG/3 ML PRE-MIX VIAL ONE (00:43)
[2021-04-17] MEDS: NOREPINEPHRINE 8 MG/250 ML 250 ML IV SCH ×2 (02:55→19:32)
[2021-04-17] MEDS: RT-ALBUTEROL SULF 2.5 MG/3 ML PRE-MIX VIAL INH SCH ×4 (03:04→22:45)
[2021-04-17 04:48] LABS: BASOPHILS % (AUTO) 0 % (0-10); EOSINOPHILS # (AUTO) 0.2 10^3/uL (0.0-0.3); EOSINOPHILS % (AUTO) 1 % (0-10); HEMATOCRIT 25 % (35-52); HEMOGLOBIN 8.4 g/dL (11.5-16.0); LYMPHOCYTES # (AUTO) 0.9 10^3/uL (1.0-4.0); LYMPHOCYTES % (AUTO) 7 % (12-44); MEAN CORPUSCULAR HEMOGLOBIN 28 pg (25-34); MEAN CORPUSCULAR HGB CONC 34 g/dL (32-36); MEAN CORPUSCULAR VOLUME 84 fL (80-99); MEAN PLATELET VOLUME 8.2 fL (9.0-12.2); MONOCYTES # (AUTO) 0.3 10^3/uL (0.0-1.0); MONOCYTES % (AUTO) 2 % (0-12); NEUTROPHILS # (AUTO) 11.7 10^3/uL (1.8-7.8); NEUTROPHILS % (AUTO) 89 % (42-75); PLATELET COUNT 556 10^3/uL (130-400); WHITE BLOOD COUNT 13.2 10^3/uL (4.3-11.0)
[2021-04-17 05:03] LABS: ALBUMIN 2.9 GM/DL (3.2-4.5)
[2021-04-17 05:04] LABS: POTASSIUM 4.3 MMOL/L (3.6-5.0)
[2021-04-17 05:05] LABS: CALCIUM 9.1 MG/DL (8.5-10.1)
[2021-04-17 05:06] LABS: TOTAL PROTEIN 5.8 GM/DL (6.4-8.2)
[2021-04-17 05:08] LABS: BILIRUBIN,TOTAL 0.2 MG/DL (0.1-1.0)
[2021-04-17 05:09] LABS: PHOSPHORUS 2.4 MG/DL (2.3-4.7)
[2021-04-17 05:10] LABS: CREATININE SERUM 0.66 MG/DL (0.60-1.30)
[2021-04-17 05:12] LABS: MAGNESIUM 1.7 MG/DL (1.6-2.4)
[2021-04-17] MEDS: CEFEPIME INJECTION 1,000 MG in WATER (STERILE) FOR INJECTION 10 ML IV SCH ×3 (05:29→18:40)
[2021-04-17] MEDS: ASPIRIN 81 MG CHEW (CHILDREN'S ASA) PO SCH (08:15)
[2021-04-17] MEDS: lisINopril 10 MG (PRINIVIL) TABLET PO SCH (08:15)
[2021-04-17] MEDS: guaiFENesin (MUCINEX) 600 MG TAB PO SCH ×2 (08:15→20:23)
[2021-04-17] MEDS: PREGABALIN 100 MG (LYRICA) CAPSULE PO SCH ×3 (08:15→20:23)
--- NOTE | 2021-04-17 08:19 | Diagnostic Imaging Report ---
Indication: Severe sepsis. COMPARISON: 04/16/2021 FINDINGS: Single frontal radiograph view of the chest was obtained and demonstrates overall improved depth of inspiration. Otherwise, there are persistent diffuse infiltrates, not significantly changed compared to prior exams. There is no large effusion or pneumothorax. Cardiac silhouette is within normal limits. Pulmonary vasculature is heavily obscured. Osseous structures show no gross acute abnormalities. IMPRESSION:. Interval improved depth of inspiration, but otherwise stable diffuse bilateral infiltrate. Dictated by: Dictated on workstation # [id number]
--- NOTE | 2021-04-17 08:56 | Pulmonary Progress Note ---
CHARLA WREN MED STUDENT 04/17/21 0856: Subjective Date Seen by a Provider: Apr 17, 2021 Time Seen by a Provider: 06:52 Subjective/Events-last exam Kezia is on vapotherm alternating between 35 LPM at 65% FiO2 and 40 at 80%. RN reports she desaturates into the 60's when she coughs and required albuterol 4x overnight. The patient denies chest pain, leg pain, fevers, chills, nausea, vomiting and diarrhea, although she admits some chest pain during coughing fits. RN states her brother was here yesterday and expressed concern that she is more confused than usual and answers questions more slowly than baseline. She has a lawton catheter in and peripheral IV access in the right hand as well as a 20 in the left AC. Sepsis Event Evaluation Height, Weight, BMI Height: '" Weight: lbs. oz. kg; 25.82 BMI Method: Focused Exam Lactate Level 04/15/21 08:14: Lactic Acid Level 1.68 04/15/21 14:22: Lactic Acid Level 0.66 Time of Focused Exam: 09:30 Exam Exam Patient acknowledged, consented, and participated in this virtual visit which was conducted using real time audio/video Vital Signs Date Time Temp Pulse Resp B/P (MAP) Pulse Ox O2 Delivery O2 Flow Rate FiO2 04/17/21 07:01 91 Vapotherm 40.00 90 04/17/21 06:00 114 19 113/65 95 Vapotherm 35.00 65.00 04/17/21 05:00 113 18 106/65 95 Vapotherm 35.00 65.00 04/17/21 04:16 92 Vapotherm 35.00 65 04/17/21 04:00 123 19 123/79 94 Vapotherm 35.00 65.00 04/17/21 03:05 97 Vapotherm 35.00 65 04/17/21 03:00 116 16 109/76 97 Vapotherm 35.00 65.00 04/17/21 02:56 36.9 Vapotherm 35.00 65.00 04/17/21 02:00 114 28 119/77 94 Vapotherm 35.00 65.00 04/17/21 01:00 117 17 122/82 95 Vapotherm 35.00 65.00 04/17/21 01:00 117 04/17/21 00:53 93 Vapotherm 35.00 65.00 04/17/21 00:50 94 Vapotherm 35.00 65 04/17/21 00:25 91 Vapotherm 35.00 70.00 04/17/21 00:18 115 18 137/80 94 Vapotherm 35.00 60.00 04/16/21 23:51 36.5 Vapotherm 35.00 60.00 04/16/21 23:50 93 Vapotherm 35.00 60 04/16/21 23:00 113 17 119/72 94 Vapotherm 35.00 60.00 04/16/21 22:00 113 17 120/75 95 Vapotherm 35.00 60.00 04/16/21 21:03 89 Vapotherm 35.00 60 04/16/21 21:00 109 15 129/88 89 Vapotherm 35.00 60.00 04/16/21 20:40 120 20 131/84 97 Vapotherm 35.00 60.00 04/16/21 20:00 94 Vapotherm 35.00 60 04/16/21 19:00 36.6 Vapotherm 35.00 60.00 04/16/21 19:00 106 04/16/21 18:00 108 11 96 Vapotherm 35.00 60.00 04/16/21 17:00 95 26 126/89 98 Vapotherm 35.00 60.00 04/16/21 16:30 36.6 04/16/21 16:00 99 Vapotherm 35.00 60 04/16/21 16:00 106 15 98 Vapotherm 35.00 60.00 04/16/21 15:00 106 17 95 Vapotherm 35.00 60.00 04/16/21 14:43 94 Vapotherm 30.00 60 04/16/21 14:00 106 9 106/73 94 Vapotherm 35.00 60.00 04/16/21 13:44 105 04/16/21 13:00 104 11 116/68 97 Vapotherm 35.00 60.00 04/16/21 12:30 36.4 04/16/21 12:00 94 Vapotherm 35.00 60 04/16/21 12:00 102 11 116/68 95 Vapotherm 35.00 60.00 04/16/21 11:00 102 11 120/77 94 Vapotherm 35.00 60.00 04/16/21 10:00 112 11 114/59 64 Vapotherm 35.00 60.00 04/16/21 09:00 112 11 120/98 93 Vapotherm 35.00 60.00 I & O 04/17/21 07:00 Intake Total 1640 ml Output Total 3900 ml Balance -2260 ml Height & Weight Height: '" Weight: lbs. oz. kg; 25.82 BMI Method: General Appearance: No Apparent Distress, WD/WN HEENT: PERRL/EOMI, Moist Mucous Membranes Neck: Full Range of Motion, Normal Inspection, Non Tender Respiratory: Chest Non Tender, No Accessory Muscle Use, Wheezing (all lung cm), Other (on Vapotherm ) Cardiovascular: Regular Rate, Rhythm, No Edema, Normal Peripheral Pulses (left BKA) Capillary Refill: Less Than 3 Seconds Peripheral Pulses: 2+ Dorsalis Pedis (R), 2+ Radial Pulses (R), 2+ Radial Pulses (L) Gastrointestinal: normal bowel sounds, non tender, soft; No distended, No guarding, No rebound, No tenderness Extremity: Normal Capillary Refill, Non Tender, No Pedal Edema, Other (Left BKA, dressing is in place. Lawton catheter in place. IV access in right hand is heplocked, 20 gauge peripheral IV in left AC. ) Neurologic/Psychiatric: Alert, Oriented x3, No Motor/Sensory Deficits, Other (flat affect, slow to answer questions) Skin: Normal Color, Warm/Dry, Other (wound to left stump slightly erythematous non draining. Open to air. ) Lymphatic: No Adenopathy Results Lab Laboratory Tests 04/15/21 13:36 04/15/21 22:50 04/16/21 05:02 04/17/21 04:32 Assessment/Plan Assessment/Plan Acute hypoxic respiratory failure + sepsis due to pneumonia -vancomycin and cefepime -SL IVF's -blood, urine, and nasal cultures resulted negative yesterday -flu and covid negative 04/15. -Will recheck covid given patient's lung appearance and respiratory status -procalcitonin 0.42 04-15 -wbc 13.2 today, no significant change compared to yesterday NSTEMI probably type 2 per cards -elevated troponins -EKG with RBBB -elevated BNP -echo showed EF 60-65% Acute kidney injury -improved -creatinine 0.92 today, trended down a bit -IVF's Hypotension -off pressors -s/p fluid resuscitated -continue to monitor -pressors to keep map >65 Elevated d dimer -lovenox -venous doppler bilat lower extrem was negative. -CTA is reasonable given pt's desaturations. Hyponatremia, significantly improved -Na now WNL at 137 -continue to monitor Anemia -hgb improved to 8.4 from 7.8 yesterday without intervention -continue to monitor Transaminitis - stable, continue to monitor HTN -lisinopril Tobaccoism -encouraged tobacco cessation Anxiety -home xanax was restarted SILVERIO ARIAS MD 04/17/21 1645: Assessment/Plan Assessment/Plan Repeat Covid PCR neg, CT chest shows extensive GGO, other possible causes include other viral, ILD, atypical PNA Will monitor SpO2 and WOB continue abx Critical Care: Critically Ill Patient Time spent with patient (mins): 20 Supervisory-Addendum Brief Verification & Attestation Participated in pt care: history, physical Personally performed: history Care discussed with: Medical Student Procedures: n/a Results interpretation: Verified [place] [address] [place] [address] Progress Note - Med Stdnt PULM Patient Name: Rob Elkins Unit Number: [id number] Date of : 04/28/1947 Patient Status: Admitted Inpatient Attending Doctor: Ema Durand DO FLO [facility]INO MED STUDENT 04/17/21 0840: Subjective Subjective Date Seen by a Provider: Apr 17, 2021 Time Seen by a Provider: 07:00 Subjective/Events-last exam Patient remains sedated and intubated. Vitals stable per bedside monitor. No acute events overnight per night RN. Review of Systems General: Other (unable to obtain) HEENT: Other (unable to obtain) Pulmonary: Other (unable to obtain) Cardiovascular: Other (unable to obtain) Gastrointestinal: Other (unable to obtain) Genitourinary: Other (unable to obtain) Musculoskeletal: other (unable to obtain) Neurological: Other (unable to obtain) Sepsis Event - Inpatient/Obs Sepsis Event Evaluation Height, Weight, BMI Height: '" Weight: lbs. oz. kg; 21.43 BMI Method: Focused Exam Focused Exam Exam-Pulmonary/CC Exam Exam Patient acknowledged, consented, and participated in this virtual visit which was conducted using real time audio/video Vital Signs Date Time Temp Pulse Resp B/P (MAP) Pulse Ox O2 Delivery O2 Flow Rate FiO2 04/17/21 07:10 100 18 97 35 04/17/21 06:05 37.6 105 16 100/63 (75) 98 Mechanical Ventilator 35.00 04/17/21 05:15 37.9 97 17 94/68 (77) 99 Mechanical Ventilator 35.00 04/17/21 05:00 95 28 93 04/17/21 04:10 38.1 04/17/21 04:00 96 Mechanical Ventilator 35 04/17/21 04:00 38.2 97 18 139/77 (97) 95 Mechanical Ventilator 35.00 04/17/21 03:40 38.2 04/17/21 03:00 38.1 97 9 128/84 (99) 94 Mechanical Ventilator 35.00 04/17/21 02:52 105 18 94 30 04/17/21 02:00 38.2 85 19 108/74 (85) 95 Mechanical Ventilator 35.00 04/17/21 01:00 100 04/17/21 01:00 38.2 100 17 133/78 (96) 93 Mechanical Ventilator 35.00 04/17/21 00:57 Mechanical Ventilator 35.00 04/17/21 00:52 Mechanical Ventilator 30.00 04/17/21 00:35 Mechanical Ventilator 25.00 04/17/21 00:07 Mechanical Ventilator 30.00 04/17/21 00:00 98 Mechanical Ventilator 30 04/17/21 00:00 38.2 82 14 120/74 (89) 90 Mechanical Ventilator 35.00 04/16/21 23:43 77 18 111/71 04/16/21 23:00 38.1 77 18 111/71 (84) 94 Mechanical Ventilator 35.00 04/16/21 22:31 73 18 96 30 04/16/21 22:00 38.2 82 21 108/72 (84) 97 Mechanical Ventilator 35.00 04/16/21 21:00 38.1 73 17 97/73 (81) 98 Mechanical Ventilator 35.00 04/16/21 20:00 38.2 71 14 91/67 (75) 97 Mechanical Ventilator 35.00 04/16/21 20:00 98 Mechanical Ventilator 35 04/16/21 19:02 83 18 98 30 04/16/21 19:00 38.1 73 25 90/65 (73) 98 Mechanical Ventilator 35.00 04/16/21 19:00 73 04/16/21 18:00 81 18 98/75 (83) 98 Mechanical Ventilator 35.00 04/16/21 17:00 69 18 95/67 (76) 99 Mechanical Ventilator 35.00 04/16/21 16:00 87 17 83/61 (68) 99 Mechanical Ventilator 35.00 04/16/21 16:00 37.7 04/16/21 16:00 98 Mechanical Ventilator 35 04/16/21 15:00 64 17 81/58 (66) 93 Mechanical Ventilator 35.00 04/16/21 14:39 78 18 93 35 04/16/21 14:00 103 22 126/123 (124) 100 Mechanical Ventilator 35.00 04/16/21 13:00 104 92 155/81 (105) 92 Mechanical Ventilator 35.00 04/16/21 13:00 82 04/16/21 12:00 97 Mechanical Ventilator 35 04/16/21 12:00 72 25 118/70 (86) 97 Mechanical Ventilator 35.00 04/16/21 12:00 37.6 04/16/21 11:00 56 17 97/62 (74) 97 Mechanical Ventilator 35.00 04/16/21 10:27 56 18 98 35 04/16/21 10:00 70 66 76/49 (58) 97 Mechanical Ventilator 35.00 04/16/21 09:00 65 66 76/49 (58) 97 Mechanical Ventilator 35.00 I & O 04/17/21 07:00 Intake Total 2190 ml Output Total 2775 ml Balance -585 ml Height & Weight Height: '" Weight: lbs. oz. kg; 21.43 BMI Method: General Appearance: WD/WN, Chronically ill, Other (Sedated and intubated) HEENT: PERRL/EOMI, Other (pupils 5mm bilat and brisk) Neck: Non Tender, Supple Respiratory: No Accessory Muscle Use, No Respiratory Distress, Rhonci, Wheezing Cardiovascular: No Edema, Normal Peripheral Pulses, Irregularly Irregular, Other (afib per monitor) Capillary Refill: Less Than 3 Seconds Peripheral Pulses: 1+ Dorsalis Pedis (R), 1+ Left Dors-Pedis (L) (see free text), 1+ Radial Pulses (L) Gastrointestinal: normal bowel sounds, soft; No distended Extremity: Normal Capillary Refill, No Pedal Edema Neurologic/Psychiatric: Other (sedated) Skin: Normal Color, Warm/Dry, Other (No breakdown on sacrum/coccyx per FLOOR [employer]OK[employer] report) Lymphatic: No Adenopathy Results Lab Laboratory Tests 04/16/21 03:02 04/17/21 03:40 Assessment/Plan Assessment/Plan Assessment/Plan Acute hypoxic respiratory failure/ARDS -remains vent dependent -continue ventilatory management -TV 600. FIO2 35%. PEEP 5. RR 18 - SBT today -family in agreement with trach and PEG if need be, consult surgery today for trach and PEG COVID-19 PNA -04-15 Single view the chest demonstrates unchanged bilateral pulmonary infiltrates -04-12-21 CT 1. Evolution of previously seen COVID-19 pneumonia which is now comprised mostly of peripheral consolidation which remains moderate in severity. - New moderate bilateral pleural effusions and diffuse body wall edema. -decadron dc'd 04-15 Leukocytosis/fevers -wbc 12.1 today -temp to 38.2 overnight, tylenol given -meropenen and anidulafungin added 04-16 -PICC cx no growth thus far Shock -resolved, pressors off since 04-08 Hypoalbuminemia -albumin 2.1 -continue to monitor Anemia -hgb 13.5 today, stable -continue to monitor Elevated AST/ALT -mildly elevated -continue to monitor Hypercoagulable state associated with COVID-19 -d dimer on 04-04, 4.31 -eliquis Atrial fibrillation -eliquis GI ppx -protonix L arm triple lumen PICC: 04/03 Lawton: 04/02 OGT: TF's R radial art line: 04/02, please discontinue today Consult surgery for trach and PEG Problem List Diagnosis/Problems Copy To: Copy Verification and Attestation Supervisory-Addendum Brief SILVERIO ARIAS MD 04/17/21 1637: Subjective Subjective Sepsis Event - Inpatient/Obs Sepsis Event Focused Exam Focused Exam Exam-Pulmonary/CC Exam Assessment/Plan Assessment/Plan Assessment/Plan [facility] [address] [address] Progress Note - Med Stdnt CC Patient Name: Cristi Doran V Unit Number: [id number] Date of : 03/05/1957 Patient Status: Admitted Inpatient Attending Doctor: Patrick Boateng MD [facility] MED STUDENT 04/17/21 1032: Subjective Subjective Date Seen by a Provider: Apr 17, 2021 Time Seen by a Provider: 07:35 Subjective/Events-last exam Patient alert and oriented x 4. Denies chest pain, SOB, fluttering, palpitations, dizziness, nausea, sweating, and headache. Reports feeling "fine" and has no complaints currently. Plan for possible cardiac cath tomorrow. Monitor shows NSR. Review of Systems General: No Chills, No Night Sweats HEENT: No Head Aches, No Visual Changes Pulmonary: No Dyspnea, No Cough Cardiovascular: No: Chest Pain, Palpitations, Orthopnea, Edema, Lt Headedness Gastrointestinal: No: Nausea, Vomiting, Abdominal Pain, Diarrhea, Constipation Genitourinary: No Dysuria, No Frequency, No Hematuria Musculoskeletal: No: neck pain, back pain Neurological: No: Weakness, Numbness, Change in speech, Confusion Sepsis Event - Inpatient/Obs Sepsis Event Evaluation Height, Weight, BMI Height: 6'1.00" Weight: 286lbs. 6.0oz. 131.538544um; 36.79 BMI Method:Stated Focused Exam Focused Exam Exam-Pulmonary/CC Exam Exam Patient acknowledged, consented, and participated in this virtual visit which wa s conducted using real time audio/video Vital Signs Date Time Temp Pulse Resp B/P (MAP) Pulse Ox O2 Delivery O2 Flow Rate FiO2 04/17/21 08:34 36.0 04/17/21 07:56 98 Nasal Cannula 2.00 04/17/21 07:00 74 04/17/21 06:14 75 32 123/73 97 Nasal Cannula 2.00 04/17/21 05:00 76 10 186/126 99 Nasal Cannula 2.00 04/17/21 04:15 36.2 04/17/21 04:00 75 12 178/83 98 Nasal Cannula 2.00 04/17/21 04:00 98 Nasal Cannula 2.00 04/17/21 03:22 79 10 156/89 98 Nasal Cannula 2.00 04/17/21 02:45 80 16 170/83 98 Nasal Cannula 2.00 04/17/21 02:30 82 30 165/78 98 Nasal Cannula 2.00 04/17/21 02:15 85 9 162/86 98 Nasal Cannula 2.00 04/17/21 02:10 35.8 86 14 148/76 99 Nasal Cannula 2.00 04/17/21 02:00 Nasal Cannula 2.00 04/17/21 01:56 90 04/16/21 23:19 95 Nasal Cannula 2.00 04/16/21 23:19 35.8 108 18 144/89 (107) 95 Room Air I & O 04/17/21 07:00 Intake Total 1000 ml Output Total 1050 ml Balance -50 ml Height & Weight Height: 6'1.00" Weight: 286lbs. 6.0oz. 131.745479lr; 36.79 BMI Method:Stated General Appearance: No Apparent Distress, WD/WN, Obese HEENT: PERRL/EOMI, Moist Mucous Membranes Neck: Full Range of Motion, Normal Inspection, Non Tender, Supple; No JVD Respiratory: Lungs Clear, Normal Breath Sounds, No Accessory Muscle Use, No Respiratory Distress; No Crackles, No Rhonci, No Stridor, No Wheezing Cardiovascular: Regular Rate, Rhythm, No Edema, No Murmur, Normal Peripheral Pulses Capillary Refill: Less Than 3 Seconds Peripheral Pulses: 2+ Dorsalis Pedis (R), 2+ Left Dors-Pedis (L), 2+ Radial Pulses (R), 2+ Radial Pulses (L) Gastrointestinal: normal bowel sounds, non tender, soft Extremity: Normal Capillary Refill, Normal Inspection, Non Tender, No Calf Tenderness, No Pedal Edema Neurologic/Psychiatric: Alert, Oriented x3, No Motor/Sensory Deficits, Normal Mood/Affect Skin: Normal Color, Warm/Dry Lymphatic: No Adenopathy Results Lab Laboratory Tests 04/16/21 23:23 04/17/21 03:05 Assessment/Plan Assessment/Plan Assessment/Plan V-Tach -converted to SR after defib x 1 -continue to monitor on tele -cards following NSTEMI -elevated troponin -cardiology following -toprolol 50mg po BID -plavix and ASA -echo -plan for cath tomorrow per cards note Hyperglycemia -sugar over 600 on admission -initial co2 18 and gap 15 now 21 and 12 -no beta hydroxybutyrate drawn -see plan below Hyperkalemia -k 5.2 -continue to monitor Anticoagulated -lovenox 120mg BID Acute on chronic renal failure -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 -creatinine trending down to 1.86 -avoid nephrotoxins -IVF's Hypertriglyceridemia -elevated at 275 -continue to monitor Diabetes mellitus insulin dependent -insulin gtt dc'd -novolog achs accuchecks -levemir -hgb a1c pending GI ppx -protonix Hypertension JANINE COPD H/O tobaccoism Problem List Diagnosis/Problems Copy To: Copy Verification and Attestation Supervisory-Addendum Brief SILVERIO RAIAS MD 04/17/21 1630: Subjective Subjective Sepsis Event - Inpatient/Obs Sepsis Event Focused Exam Focused Exam Exam-Pulmonary/CC Exam Assessment/Plan Assessment/Plan Assessment/Plan [facility] [address] [address] Progress Note - Med Stdnt PULM Patient Name: Elli Perry Unit Number: [id number] Date of : 04/23/1954 Patient Status: Admitted Inpatient Attending Doctor: Cecile Banerjee MD [facility] MED STUDENT 04/17/21 0827: Subjective Date Seen by a Provider: Apr 17, 2021 Time Seen by a Provider: 06:45 Subjective/Events-last exam Patient awake and alert in room. States is having back pain and can't get comfortable. Becomes anxious and tearful stating the nurses are displeased with taking care of her. Vitals stable per monitor. Remains on cardizem drip at 20mg/hr. Review of Systems General: No Chills, No Night Sweats HEENT: No Head Aches, No Visual Changes Pulmonary: No Dyspnea, No Cough Cardiovascular: No: Chest Pain, Palpitations Gastrointestinal: Nausea; No: Vomiting, Abdominal Pain Genitourinary: No Dysuria, No Frequency; Other (lawton catheter) Musculoskeletal: back pain; No: neck pain Neurological: No: Weakness, Numbness Sepsis Event Evaluation Height, Weight, BMI Height: 5'5.00" Weight: 276lbs. oz. 125.586292gk; 43.29 BMI Method:Stated Focused Exam Lactate Level 04/14/21 21:45: Lactic Acid Level 1.54 Exam Exam Patient acknowledged, consented, and participated in this virtual visit which was conducted using real time audio/video Vital Signs Date Time Temp Pulse Resp B/P (MAP) Pulse Ox O2 Delivery O2 Flow Rate FiO2 04/17/21 06:00 130 21 131/91 98 Nasal Cannula 2.00 04/17/21 05:48 99 04/17/21 05:00 112 33 144/98 99 Nasal Cannula 2.00 04/17/21 04:15 98 Nasal Cannula 2.00 04/17/21 04:00 129 35 139/98 100 Nasal Cannula 2.00 04/17/21 03:00 87 13 103/89 91 Nasal Cannula 2.00 04/17/21 02:51 36.5 Nasal Cannula 2.00 04/17/21 02:15 111 15 137/81 91 Nasal Cannula 2.00 04/17/21 02:00 92 04/17/21 01:00 108 04/17/21 01:00 108 10 123/70 95 Nasal Cannula 2.00 04/17/21 00:00 126 117/86 99 Nasal Cannula 2.00 04/16/21 23:49 36.7 Nasal Cannula 2.00 04/16/21 23:48 99 Nasal Cannula 2.00 04/16/21 23:00 126 18 128/91 99 Nasal Cannula 2.00 04/16/21 22:10 118 04/16/21 22:00 125 29 144/79 98 Nasal Cannula 2.00 04/16/21 21:00 125 32 126/80 97 Nasal Cannula 2.00 04/16/21 20:32 126 04/16/21 20:00 97 Nasal Cannula 2.00 04/16/21 20:00 128 132/90 97 Nasal Cannula 2.00 04/16/21 19:15 128 13 124/78 97 Nasal Cannula 2.00 04/16/21 19:00 128 04/16/21 19:00 36.6 Nasal Cannula 2.00 04/16/21 18:00 125 6 132/119 95 Nasal Cannula 2.00 04/16/21 17:00 133 36 173/103 98 Nasal Cannula 2.00 04/16/21 16:30 35.9 04/16/21 16:00 130 26 100/84 97 Nasal Cannula 2.00 04/16/21 16:00 98 Nasal Cannula 2.00 04/16/21 15:00 130 31 116/81 98 Nasal Cannula 2.00 04/16/21 14:00 128 5 125/83 100 Nasal Cannula 2.00 04/16/21 14:00 132 04/16/21 13:36 128 04/16/21 13:00 131 13 157/87 100 Nasal Cannula 2.00 04/16/21 12:30 36.3 04/16/21 12:00 98 Nasal Cannula 2.00 04/16/21 12:00 133 13 120/63 97 Nasal Cannula 2.00 04/16/21 11:00 133 45 129/70 96 Nasal Cannula 2.00 04/16/21 10:10 125 130/85 95 Nasal Cannula 2.00 04/16/21 10:00 130 04/16/21 09:00 128 118/74 96 Nasal Cannula 2.00 I & O 04/17/21 07:00 Intake Total 2505 ml Output Total 2475 ml Balance 30 ml Height & Weight Height: 5'5.00" Weight: 276lbs. oz. 125.400732wv; 43.29 BMI Method:Stated General Appearance: No Apparent Distress, Chronically ill, Obese HEENT: PERRL/EOMI, Moist Mucous Membranes; No Scleral Icterus (L), No Scleral Icterus (R) Neck: Non Tender, Supple, Other ([facility] CVC dressing c/d/i) Respiratory: Lungs Clear, Normal Breath Sounds, No Accessory Muscle Use, No Respiratory Distress Cardiovascular: No Murmur, Irregularly Irregular, Tachycardia Capillary Refill: Less Than 3 Seconds Peripheral Pulses: 2+ Dorsalis Pedis (R), 2+ Left Dors-Pedis (L), 2+ Radial Pulses (R), 2+ Radial Pulses (L) Gastrointestinal: normal bowel sounds, non tender, soft; No distended, No guarding, No rebound, No tenderness Extremity: Normal Capillary Refill, Non Tender, No Calf Tenderness, No Pedal Edema Neurologic/Psychiatric: Alert, Oriented x3, Other (tearful) Skin: Normal Color, Warm/Dry Lymphatic: No Adenopathy Results Lab Laboratory Tests 04/16/21 02:50 04/17/21 02:35 Assessment/Plan Assessment/Plan Septic shock due to UTI -prelim blood culture staph epidermidis and hominis -prelim urine culture E coli and proteus -Levo off since 04-15. -cefepime and vancomycin dc'd today -meropenem added today -procalcitonin 0.59 04-15 -covid pcr negative S/P MANNIE/Cardioversion today -currently in NSR -cardizem gtt dc'd JAYSON -improved -creatinine 0.69 now -continue to monitor A-fib with RVR -resolved, s/p cardioversion 04-17 -anticoagulated with lovenox 120mg BID -amiodarone -digoxin NSTEMI -troponin I 3rd set up to 0.077 -continue to monitor Seizure disorder -continue keppra HTN H/O GIB H/O cardiac arrest 10/2019 H/O polysubstance abuse -uds positive for oxycodone and benzo's Obesity GI ppx -protonix RIJ CVC: please discontinue today [place]: ? discontinue today SILVERIO ARIAS MD 04/17/21 1614: Assessment/Plan Assessment/Plan agree with medical students note, I rounded via camera, physical based on RN and medical student's report Agree with treatment plan Critical Care: Critically Ill Patient Time spent with patient (mins): 25 Supervisory-Addendum Brief Verification & Attestation Participated in pt care: history, physical Personally performed: history Care discussed with: Medical Student, [employer] SUPPORT SPECIALIST Procedures: n/a Results interpretation: Verified all documentation I rounded with RN and medical student thru video, Agree with treatment plan, Physical findings are those reported to me by RN and medical student [employer] MED STUDENT Apr 17, 2021 08:27 SILVERIO ARIAS MD Apr 17, 2021 16:14 Addendum: SILVERIO ARIAS MD on 04/17/21 @ 16:15 Critical Care: Critically Ill Patient Problem List Diagnosis/Problems Copy To: Copy Verification and Attestation Supervisory-Addendum Brief Verification & Attestation Participated in pt care: history, physical Personally performed: exam, history Care discussed with: Medical Student Procedures: n/a Results interpretation: Verified all documentation [facility] [address] [address] Progress Note - Med Stdnt PULM Patient Name: Elli Perry Unit Number: [id number] Date of : 04/23/1954 Patient Status: Admitted Inpatient Attending Doctor: Cecile Banerjee MD [employer] MED STUDENT 04/17/21 0827: Subjective Date Seen by a Provider: Apr 17, 2021 Time Seen by a Provider: 06:45 Subjective/Events-last exam Patient awake and alert in room. States is having back pain and can't get comfortable. Becomes anxious and tearful stating the nurses are displeased with taking care of her. Vitals stable per monitor. Remains on cardizem drip at 20mg/hr. Review of Systems General: No Chills, No Night Sweats HEENT: No Head Aches, No Visual Changes Pulmonary: No Dyspnea, No Cough Cardiovascular: No: Chest Pain, Palpitations Gastrointestinal: Nausea; No: Vomiting, Abdominal Pain Genitourinary: No Dysuria, No Frequency; Other (lawton catheter) Musculoskeletal: back pain; No: neck pain Neurological: No: Weakness, Numbness Sepsis Event Evaluation Height, Weight, BMI Height: 5'5.00" Weight: 276lbs. oz. 125.742515mj; 43.29 BMI Method:Stated Focused Exam Lactate Level 04/14/21 21:45: Lactic Acid Level 1.54 Exam Exam Patient acknowledged, consented, and participated in this virtual visit which was conducted using real time audio/video Vital Signs Date Time Temp Pulse Resp B/P (MAP) Pulse Ox O2 Delivery O2 Flow Rate FiO2 04/17/21 06:00 130 21 131/91 98 Nasal Cannula 2.00 04/17/21 05:48 99 04/17/21 05:00 112 33 144/98 99 Nasal Cannula 2.00 04/17/21 04:15 98 Nasal Cannula 2.00 04/17/21 04:00 129 35 139/98 100 Nasal Cannula 2.00 04/17/21 03:00 87 13 103/89 91 Nasal Cannula 2.00 04/17/21 02:51 36.5 Nasal Cannula 2.00 04/17/21 02:15 111 15 137/81 91 Nasal Cannula 2.00 04/17/21 02:00 92 04/17/21 01:00 108 04/17/21 01:00 108 10 123/70 95 Nasal Cannula 2.00 04/17/21 00:00 126 117/86 99 Nasal Cannula 2.00 04/16/21 23:49 36.7 Nasal Cannula 2.00 04/16/21 23:48 99 Nasal Cannula 2.00 04/16/21 23:00 126 18 128/91 99 Nasal Cannula 2.00 04/16/21 22:10 118 04/16/21 22:00 125 29 144/79 98 Nasal Cannula 2.00 04/16/21 21:00 125 32 126/80 97 Nasal Cannula 2.00 04/16/21 20:32 126 04/16/21 20:00 97 Nasal Cannula 2.00 04/16/21 20:00 128 132/90 97 Nasal Cannula 2.00 04/16/21 19:15 128 13 124/78 97 Nasal Cannula 2.00 04/16/21 19:00 128 04/16/21 19:00 36.6 Nasal Cannula 2.00 04/16/21 18:00 125 6 132/119 95 Nasal Cannula 2.00 04/16/21 17:00 133 36 173/103 98 Nasal Cannula 2.00 04/16/21 16:30 35.9 04/16/21 16:00 130 26 100/84 97 Nasal Cannula 2.00 04/16/21 16:00 98 Nasal Cannula 2.00 04/16/21 15:00 130 31 116/81 98 Nasal Cannula 2.00 04/16/21 14:00 128 5 125/83 100 Nasal Cannula 2.00 04/16/21 14:00 132 04/16/21 13:36 128 04/16/21 13:00 131 13 157/87 100 Nasal Cannula 2.00 04/16/21 12:30 36.3 04/16/21 12:00 98 Nasal Cannula 2.00 04/16/21 12:00 133 13 120/63 97 Nasal Cannula 2.00 04/16/21 11:00 133 45 129/70 96 Nasal Cannula 2.00 04/16/21 10:10 125 130/85 95 Nasal Cannula 2.00 04/16/21 10:00 130 04/16/21 09:00 128 118/74 96 Nasal Cannula 2.00 I & O 04/17/21 07:00 Intake Total 2505 ml Output Total 2475 ml Balance 30 ml Height & Weight Height: 5'5.00" Weight: 276lbs. oz. 125.635438xd; 43.29 BMI Method:Stated General Appearance: No Apparent Distress, Chronically ill, Obese HEENT: PERRL/EOMI, Moist Mucous Membranes; No Scleral Icterus (L), No Scleral Icterus (R) Neck: Non Tender, Supple, Other (RIJ CVC dressing c/d/i) Respiratory: Lungs Clear, Normal Breath Sounds, No Accessory Muscle Use, No Respiratory Distress Cardiovascular: No Murmur, Irregularly Irregular, Tachycardia Capillary Refill: Less Than 3 Seconds Peripheral Pulses: 2+ Dorsalis Pedis (R), 2+ Left Dors-Pedis (L), 2+ Radial Pulses (R), 2+ Radial Pulses (L) Gastrointestinal: normal bowel sounds, non tender, soft; No distended, No guarding, No rebound, No tenderness Extremity: Normal Capillary Refill, Non Tender, No Calf Tenderness, No Pedal Edema Neurologic/Psychiatric: Alert, Oriented x3, Other (tearful) Skin: Normal Color, Warm/Dry Lymphatic: No Adenopathy Results Lab Laboratory Tests 04/16/21 02:50 04/17/21 02:35 Assessment/Plan Assessment/Plan Septic shock due to UTI -prelim blood culture staph epidermidis and hominis -prelim urine culture E coli and proteus -Levo off since 04-15. -cefepime and vancomycin dc'd today -meropenem added today -procalcitonin 0.59 04-15 -covid pcr negative S/P MANNIE/Cardioversion today -currently in NSR -cardizem gtt dc'd JAYSON -improved -creatinine 0.69 now -continue to monitor A-fib with RVR -resolved, s/p cardioversion 04-17 -anticoagulated with lovenox 120mg BID -amiodarone -digoxin NSTEMI -troponin I 3rd set up to 0.077 -continue to monitor Seizure disorder -continue keppra HTN H/O GIB H/O cardiac arrest 10/2019 H/O polysubstance abuse -uds positive for oxycodone and benzo's Obesity GI ppx -protonix RIJ CVC: please discontinue today [place]: ? discontinue today SILVERIO ARIAS MD 04/17/21 1614: Assessment/Plan Assessment/Plan agree with medical students note, I rounded via camera, physical based on RN and medical student's report Agree with treatment plan Critical Care: Critically Ill Patient Time spent with patient (mins): 25 Supervisory-Addendum Brief Verification & Attestation Participated in pt care: history, physical Personally performed: history Care discussed with: Medical Student, FORESTRY SUPPORT SPECIALIST Procedures: n/a Results interpretation: Verified all documentation I rounded with RN and medical student thru video, Agree with treatment plan, Physical findings are those reported to me by RN and medical student FLO NINO MED STUDENT Apr 17, 2021 08:27 SILVERIO ARIAS MD Apr 17, 2021 16:14 Addendum: SILVERIO ARIAS MD on 04/17/21 @ 16:15 FLO NINO Apr 17, 2021 10:32 SILVERIO ARIAS MD Apr 17, 2021 16:30 Critical Care: Ventilator Management Time spent with patient (mins): 30 Problem List Diagnosis/Problems Copy To: Copy Verification and Attestation Supervisory-Addendum Brief Verification & Attestation Participated in pt care: history, physical Personally performed: supervision of care Care discussed with: Medical Ekaterina Procedures: n/a Results interpretation: Verified all documentation [facility] [address] [address] Progress Note - Med Stdnt CC Patient Name: Cristi Doran V Unit Number: [id number] Date of : 03/05/1957 Patient Status: Admitted Inpatient Attending Doctor: Patrick Boateng MD F[employer]INO MED STUDENT 04/17/21 1032: Subjective Subjective Date Seen by a Provider: Apr 17, 2021 Time Seen by a Provider: 07:35 Subjective/Events-last exam Patient alert and oriented x 4. Denies chest pain, SOB, fluttering, palpitations, dizziness, nausea, sweating, and headache. Reports feeling "fine" and has no complaints currently. Plan for possible cardiac cath tomorrow. Monitor shows NSR. Review of Systems General: No Chills, No Night Sweats HEENT: No Head Aches, No Visual Changes Pulmonary: No Dyspnea, No Cough Cardiovascular: No: Chest Pain, Palpitations, Orthopnea, Edema, Lt Headedness Gastrointestinal: No: Nausea, Vomiting, Abdominal Pain, Diarrhea, Constipation Genitourinary: No Dysuria, No Frequency, No Hematuria Musculoskeletal: No: neck pain, back pain Neurological: No: Weakness, Numbness, Change in speech, Confusion Sepsis Event - Inpatient/Obs Sepsis Event Evaluation Height, Weight, BMI Height: 6'1.00" Weight: 286lbs. 6.0oz. 131.910970wr; 36.79 BMI Method:Stated Focused Exam Focused Exam Exam-Pulmonary/CC Exam Exam Patient acknowledged, consented, and participated in this virtual visit which was conducted using real time audio/video Vital Signs Date Time Temp Pulse Resp B/P (MAP) Pulse Ox O2 Delivery O2 Flow Rate FiO2 04/17/21 08:34 36.0 04/17/21 07:56 98 Nasal Cannula 2.00 04/17/21 07:00 74 04/17/21 06:14 75 32 123/73 97 Nasal Cannula 2.00 04/17/21 05:00 76 10 186/126 99 Nasal Cannula 2.00 04/17/21 04:15 36.2 04/17/21 04:00 75 12 178/83 98 Nasal Cannula 2.00 04/17/21 04:00 98 Nasal Cannula 2.00 04/17/21 03:22 79 10 156/89 98 Nasal Cannula 2.00 04/17/21 02:45 80 16 170/83 98 Nasal Cannula 2.00 04/17/21 02:30 82 30 165/78 98 Nasal Cannula 2.00 04/17/21 02:15 85 9 162/86 98 Nasal Cannula 2.00 04/17/21 02:10 35.8 86 14 148/76 99 Nasal Cannula 2.00 04/17/21 02:00 Nasal Cannula 2.00 04/17/21 01:56 90 04/16/21 23:19 95 Nasal Cannula 2.00 04/16/21 23:19 35.8 108 18 144/89 (107) 95 Room Air I & O 04/17/21 07:00 Intake Total 1000 ml Output Total 1050 ml Balance -50 ml Height & Weight Height: 6'1.00" Weight: 286lbs. 6.0oz. 131.641896gr; 36.79 BMI Method:Stated General Appearance: No Apparent Distress, WD/WN, Obese HEENT: PERRL/EOMI, Moist Mucous Membranes Neck: Full Range of Motion, Normal Inspection, Non Tender, Supple; No JVD Respiratory: Lungs Clear, Normal Breath Sounds, No Accessory Muscle Use, No Respiratory Distress; No Crackles, No Rhonci, No Stridor, No Wheezing Cardiovascular: Regular Rate, Rhythm, No Edema, No Murmur, Normal Peripheral Pulses Capillary Refill: Less Than 3 Seconds Peripheral Pulses: 2+ Dorsalis Pedis (R), 2+ Left Dors-Pedis (L), 2+ Radial Pulses (R), 2+ Radial Pulses (L) Gastrointestinal: normal bowel sounds, non tender, soft Extremity: Normal Capillary Refill, Normal Inspection, Non Tender, No Calf Tenderness, No Pedal Edema Neurologic/Psychiatric: Alert, Oriented x3, No Motor/Sensory Deficits, Normal Mood/Affect Skin: Normal Color, Warm/Dry Lymphatic: No Adenopathy Results Lab Laboratory Tests 04/16/21 23:23 04/17/21 03:05 Assessment/Plan Assessment/Plan Assessment/Plan V-Tach -converted to SR after defib x 1 -continue to monitor on tele -cards following NSTEMI -elevated troponin -cardiology following -toprolol 50mg po BID -plavix and ASA -echo -plan for cath tomorrow per cards note Hyperglycemia -sugar over 600 on admission -initial co2 18 and gap 15 now 21 and 12 -no beta hydroxybutyrate drawn -see plan below Hyperkalemia -k 5.2 -continue to monitor Anticoagulated -lovenox 120mg BID Acute on chronic renal failure -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 -creatinine trending down to 1.86 -avoid nephrotoxins -IVF's Hypertriglyceridemia -elevated at 275 -continue to monitor Diabetes mellitus insulin dependent -insulin gtt dc'd -novolog achs accuchecks -levemir -hgb a1c pending GI ppx -protonix Hypertension JANINE COPD H/O tobaccoism Problem List Diagnosis/Problems Copy To: Copy Verification and Attestation Supervisory-Addendum Brief SILVERIO ARIAS MD 04/17/21 1630: Subjective Subjective Sepsis Event - Inpatient/Obs Sepsis Event Focused Exam Focused Exam Exam-Pulmonary/CC Exam Assessment/Plan Assessment/Plan Assessment/Plan [facility] [address] [address] Progress Note - Med Stdnt PULM Patient Name: Elli Perry Unit Number: [id number] Date of : 04/23/1954 Patient Status: Admitted Inpatient Attending Doctor: Cecile Banerjee MD [employer] MED STUDENT 04/17/21 0827: Subjective Date Seen by a Provider: Apr 17, 2021 Time Seen by a Provider: 06:45 Subjective/Events-last exam Patient awake and alert in room. States is having back pain and can't get comfortable. Becomes anxious and tearful stating the nurses are displeased with taking care of her. Vitals stable per monitor. Remains on cardizem drip at 20mg/hr. Review of Systems General: No Chills, No Night Sweats HEENT: No Head Aches, No Visual Changes Pulmonary: No Dyspnea, No Cough Cardiovascular: No: Chest Pain, Palpitations Gastrointestinal: Nausea; No: Vomiting, Abdominal Pain Genitourinary: No Dysuria, No Frequency; Other (law[place] catheter) Musculoskeletal: back pain; No: neck pain Neurological: No: Weakness, Numbness Sepsis Event Evaluation Height, Weight, BMI Height: 5'5.00" Weight: 276lbs. oz. 125.921590ed; 43.29 BMI Method:Stated Focused Exam Lactate Level 04/14/21 21:45: Lactic Acid Level 1.54 Exam Exam Patient acknowledged, consented, and participated in this virtual visit which was conducted using real time audio/video Vital Signs Date Time Temp Pulse Resp B/P (MAP) Pulse Ox O2 Delivery O2 Flow Rate FiO2 04/17/21 06:00 130 21 131/91 98 Nasal Cannula 2.00 04/17/21 05:48 99 04/17/21 05:00 112 33 144/98 99 Nasal Cannula 2.00 04/17/21 04:15 98 Nasal Cannula 2.00 04/17/21 04:00 129 35 139/98 100 Nasal Cannula 2.00 04/17/21 03:00 87 13 103/89 91 Nasal Cannula 2.00 04/17/21 02:51 36.5 Nasal Cannula 2.00 04/17/21 02:15 111 15 137/81 91 Nasal Cannula 2.00 04/17/21 02:00 92 04/17/21 01:00 108 04/17/21 01:00 108 10 123/70 95 Nasal Cannula 2.00 04/17/21 00:00 126 117/86 99 Nasal Cannula 2.00 04/16/21 23:49 36.7 Nasal Cannula 2.00 04/16/21 23:48 99 Nasal Cannula 2.00 04/16/21 23:00 126 18 128/91 99 Nasal Cannula 2.00 04/16/21 22:10 118 04/16/21 22:00 125 29 144/79 98 Nasal Cannula 2.00 04/16/21 21:00 125 32 126/80 97 Nasal Cannula 2.00 04/16/21 20:32 126 04/16/21 20:00 97 Nasal Cannula 2.00 04/16/21 20:00 128 132/90 97 Nasal Cannula 2.00 04/16/21 19:15 128 13 124/78 97 Nasal Cannula 2.00 04/16/21 19:00 128 04/16/21 19:00 36.6 Nasal Cannula 2.00 04/16/21 18:00 125 6 132/119 95 Nasal Cannula 2.00 04/16/21 17:00 133 36 173/103 98 Nasal Cannula 2.00 04/16/21 16:30 35.9 04/16/21 16:00 130 26 100/84 97 Nasal Cannula 2.00 04/16/21 16:00 98 Nasal Cannula 2.00 04/16/21 15:00 130 31 116/81 98 Nasal Cannula 2.00 04/16/21 14:00 128 5 125/83 100 Nasal Cannula 2.00 04/16/21 14:00 132 04/16/21 13:36 128 04/16/21 13:00 131 13 157/87 100 Nasal Cannula 2.00 04/16/21 12:30 36.3 04/16/21 12:00 98 Nasal Cannula 2.00 04/16/21 12:00 133 13 120/63 97 Nasal Cannula 2.00 04/16/21 11:00 133 45 129/70 96 Nasal Cannula 2.00 04/16/21 10:10 125 130/85 95 Nasal Cannula 2.00 04/16/21 10:00 130 04/16/21 09:00 128 118/74 96 Nasal Cannula 2.00 I & O 04/17/21 07:00 Intake Total 2505 ml Output Total 2475 ml Balance 30 ml Height & Weight Height: 5'5.00" Weight: 276lbs. oz. 125.653905np; 43.29 BMI Method:Stated General Appearance: No Apparent Distress, Chronically ill, Obese HEENT: PERRL/EOMI, Moist Mucous Membranes; No Scleral Icterus (L), No Scleral Icterus (R) Neck: Non Tender, Supple, Other (RIJ CVC dressing c/d/i) Respiratory: Lungs Clear, Normal Breath Sounds, No Accessory Muscle Use, No Respiratory Distress Cardiovascular: No Murmur, Irregularly Irregular, Tachycardia Capillary Refill: Less Than 3 Seconds Peripheral Pulses: 2+ Dorsalis Pedis (R), 2+ Left Dors-Pedis (L), 2+ Radial Pulses (R), 2+ Radial Pulses (L) Gastrointestinal: normal bowel sounds, non tender, soft; No distended, No guarding, No rebound, No tenderness Extremity: Normal Capillary Refill, Non Tender, No Calf Tenderness, No Pedal Edema Neurologic/Psychiatric: Alert, Oriented x3, Other (tearful) Skin: Normal Color, Warm/Dry Lymphatic: No Adenopathy Results Lab Laboratory Tests 04/16/21 02:50 04/17/21 02:35 Assessment/Plan Assessment/Plan Septic shock due to UTI -prelim blood culture staph epidermidis and hominis -prelim urine culture E coli and proteus -Levo off since 04-15. -cefepime and vancomycin dc'd today -meropenem added today -procalcitonin 0.59 04-15 -covid pcr negative S/P MANNIE/Cardioversion today -currently in NSR -cardizem gtt dc'd JAYSON -improved -creatinine 0.69 now -continue to monitor A-fib with RVR -resolved, s/p cardioversion 04-17 -anticoagulated with lovenox 120mg BID -amiodarone -digoxin NSTEMI -troponin I 3rd set up to 0.077 -continue to monitor Seizure disorder -continue keppra HTN H/O GIB H/O cardiac arrest 10/2019 H/O polysubstance abuse -uds positive for oxycodone and benzo's Obesity GI ppx -protonix RIJ CVC: please discontinue today [place]: ? discontinue today SILVERIO ARIAS MD 04/17/21 1614: Assessment/Plan Assessment/Plan agree with medical students note, I rounded via camera, physical based on RN and medical student's report Agree with treatment plan Critical Care: Critically Ill Patient Time spent with patient (mins): 25 Supervisory-Addendum Brief Verification & Attestation Participated in pt care: history, physical Personally performed: history Care discussed with: Medical Student, FORESTRY SUPPORT SPECIALIST Procedures: n/a Results interpretation: Verified all documentation I rounded with RN and medical student thru video, Agree with treatment plan, Physical findings are those reported to me by RN and medical student FLO NINO MED STUDENT Apr 17, 2021 08:27 SILVERIO ARIAS MD Apr 17, 2021 16:14 Addendum: SILVERIO ARIAS MD on 04/17/21 @ 16:15 Critical Care: Critically Ill Patient Problem List Diagnosis/Problems Copy To: Copy Verification and Attestation Supervisory-Addendum Brief Verification & Attestation Participated in pt care: history, physical Personally performed: exam, history Care discussed with: Medical Student Procedures: n/a Results interpretation: Verified all documentation [facility] [address] [address] Progress Note - Med Stdnt PULM Patient Name: Elli Perry Unit Number: [id number] Date of : 04/23/1954 Patient Status: Admitted Inpatient Attending Doctor: Cecile Banerjee MD FLO NINO STUDENT 04/17/21 0827: Subjective Date Seen by a Provider: Apr 17, 2021 Time Seen by a Provider: 06:45 Subjective/Events-last exam Patient awake and alert in room. States is having back pain and can't get comfortable. Becomes anxious and tearful stating the nurses are displeased with taking care of her. Vitals stable per monitor. Remains on cardizem drip at 20mg/hr. Review of Systems General: No Chills, No Night Sweats HEENT: No Head Aches, No Visual Changes Pulmonary: No Dyspnea, No Cough Cardiovascular: No: Chest Pain, Palpitations Gastrointestinal: Nausea; No: Vomiting, Abdominal Pain Genitourinary: No Dysuria, No Frequency; Other ([place] catheter) Musculoskeletal: back pain; No: neck pain Neurological: No: Weakness, Numbness Sepsis Event Evaluation Height, Weight, BMI Height: 5'5.00" Weight: 276lbs. oz. 125.714943fp; 43.29 BMI Method:Stated Focused Exam Lactate Level 04/14/21 21:45: Lactic Acid Level 1.54 Exam Exam Patient acknowledged, consented, and participated in this virtual visit which was conducted using real time audio/video Vital Signs Date Time Temp Pulse Resp B/P (MAP) Pulse Ox O2 Delivery O2 Flow Rate FiO2 04/17/21 06:00 130 21 131/91 98 Nasal Cannula 2.00 04/17/21 05:48 99 04/17/21 05:00 112 33 144/98 99 Nasal Cannula 2.00 04/17/21 04:15 98 Nasal Cannula 2.00 04/17/21 04:00 129 35 139/98 100 Nasal Cannula 2.00 04/17/21 03:00 87 13 103/89 91 Nasal Cannula 2.00 04/17/21 02:51 36.5 Nasal Cannula 2.00 04/17/21 02:15 111 15 137/81 91 Nasal Cannula 2.00 04/17/21 02:00 92 04/17/21 01:00 108 04/17/21 01:00 108 10 123/70 95 Nasal Cannula 2.00 04/17/21 00:00 126 117/86 99 Nasal Cannula 2.00 04/16/21 23:49 36.7 Nasal Cannula 2.00 04/16/21 23:48 99 Nasal Cannula 2.00 04/16/21 23:00 126 18 128/91 99 Nasal Cannula 2.00 04/16/21 22:10 118 04/16/21 22:00 125 29 144/79 98 Nasal Cannula 2.00 04/16/21 21:00 125 32 126/80 97 Nasal Cannula 2.00 04/16/21 20:32 126 04/16/21 20:00 97 Nasal Cannula 2.00 04/16/21 20:00 128 132/90 97 Nasal Cannula 2.00 04/16/21 19:15 128 13 124/78 97 Nasal Cannula 2.00 04/16/21 19:00 128 04/16/21 19:00 36.6 Nasal Cannula 2.00 04/16/21 18:00 125 6 132/119 95 Nasal Cannula 2.00 04/16/21 17:00 133 36 173/103 98 Nasal Cannula 2.00 04/16/21 16:30 35.9 04/16/21 16:00 130 26 100/84 97 Nasal Cannula 2.00 04/16/21 16:00 98 Nasal Cannula 2.00 04/16/21 15:00 130 31 116/81 98 Nasal Cannula 2.00 04/16/21 14:00 128 5 125/83 100 Nasal Cannula 2.00 04/16/21 14:00 132 04/16/21 13:36 128 04/16/21 13:00 131 13 157/87 100 Nasal Cannula 2.00 04/16/21 12:30 36.3 04/16/21 12:00 98 Nasal Cannula 2.00 04/16/21 12:00 133 13 120/63 97 Nasal Cannula 2.00 04/16/21 11:00 133 45 129/70 96 Nasal Cannula 2.00 04/16/21 10:10 125 130/85 95 Nasal Cannula 2.00 04/16/21 10:00 130 04/16/21 09:00 128 118/74 96 Nasal Cannula 2.00 I & O 04/17/21 07:00 Intake Total 2505 ml Output Total 2475 ml Balance 30 ml Height & Weight Height: 5'5.00" Weight: 276lbs. oz. 125.107319gj; 43.29 BMI Method:Stated General Appearance: No Apparent Distress, Chronically ill, Obese HEENT: PERRL/EOMI, Moist Mucous Membranes; No Scleral Icterus (L), No Scleral Icterus (R) Neck: Non Tender, Supple, Other ([facility] CVC dressing c/d/i) Respiratory: Lungs Clear, Normal Breath Sounds, No Accessory Muscle Use, No Respiratory Distress Cardiovascular: No Murmur, Irregularly Irregular, Tachycardia Capillary Refill: Less Than 3 Seconds Peripheral Pulses: 2+ Dorsalis Pedis (R), 2+ Left Dors-Pedis (L), 2+ Radial Pulses (R), 2+ Radial Pulses (L) Gastrointestinal: normal bowel sounds, non tender, soft; No distended, No guarding, No rebound, No tenderness Extremity: Normal Capillary Refill, Non Tender, No Calf Tenderness, No Pedal Edema Neurologic/Psychiatric: Alert, Oriented x3, Other (tearful) Skin: Normal Color, Warm/Dry Lymphatic: No Adenopathy Results Lab Laboratory Tests 04/16/21 02:50 04/17/21 02:35 Assessment/Plan Assessment/Plan Septic shock due to UTI -prelim blood culture staph epidermidis and hominis -prelim urine culture E coli and proteus -Levo off since 04-15. -cefepime and vancomycin dc'd today -meropenem added today -procalcitonin 0.59 04-15 -covid pcr negative S/P MANNIE/Cardioversion today -currently in NSR -cardizem gtt dc'd JAYSON -improved -creatinine 0.69 now -continue to monitor A-fib with RVR -resolved, s/p cardioversion 04-17 -anticoagulated with lovenox 120mg BID -amiodarone -digoxin NSTEMI -troponin I 3rd set up to 0.077 -continue to monitor Seizure disorder -continue keppra HTN H/O GIB H/O cardiac arrest 10/2019 H/O polysubstance abuse -uds positive for oxycodone and benzo's Obesity GI ppx -protonix RIJ CVC: please discontinue today [place]: ? discontinue today SILVERIO ARIAS MD 04/17/21 1614: Assessment/Plan Assessment/Plan agree with medical students note, I rounded via camera, physical based on RN and medical student's report Agree with treatment plan Critical Care: Critically Ill Patient Time spent with patient (mins): 25 Supervisory-Addendum Brief Verification & Attestation Participated in pt care: history, physical Personally performed: history Care discussed with: Medical Student, FORESTRY SUPPORT SPECIALIST Procedures: n/a Results interpretation: Verified all documentation I rounded with RN and medical student thru video, Agree with treatment plan, Physical findings are those reported to me by RN and medical student.Family has agreed to trach/PEG to be done Thursday FLO NINO MED STUDENT Apr 17, 2021 08:27 SILVERIO ARIAS MD Apr 17, 2021 16:14 Addendum: SILVERIO ARIAS MD on 04/17/21 @ 16:15 FLO NINO MED STUDENT Apr 17, 2021 10:32 SILVERIO ARIAS MD Apr 17, 2021 16:30 FLO NINO MED STUDENT Apr 17, 2021 08:40 SILVERIO ARIAS MD Apr 17, 2021 16:37 CHARLA WREN MED STUDENT Apr 17, 2021 08:56 SILVERIO ARIAS MD Apr 17, 2021 16:45
[2021-04-17] MEDS ORDERED: HOLD METFORMIN - RECEIVED CONTRAST 20 ML VIAL IV SCH (09:00)
[2021-04-17] MEDS ORDERED: NS 100 ML (IVPB) BAG IV ONE (09:00)
[2021-04-17] MEDS ORDERED: CATHETER FLUSH 10 ML SYR IV PRN (09:00)
[2021-04-17] MEDS ORDERED: IOHEXOL 350 MG/ML 100 ML (OMNIPAQUE 350) VIAL IV ONE (09:00)
--- NOTE | 2021-04-17 09:12 | Progress Note - Hospitalist ---
JAYLEEN BALL A MED STUDENT 04/17/21 0912: Subjective HPI/CC On Admission Date Seen by Provider: Apr 17, 2021 Time Seen by Provider: 08:45 50 yo female presented to ED for SOA, cough, chest pressure, lightheadedness and nausea/vomiting for the last week. Pt has hx of HTN and tobacco use 1 ppd for over 20 years. Pt is still visibly SOA on bipap in ICU. Pt states her N/V are better since being given Zofran. Pt would like Xanax for her anxiety, states she takes it at home. 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 Subjective/Events-last exam Pt was sleeping in bed on arrival to room. Pt was easily woken, but seemed sleepier than yesterday. Pt reports she is feeling better overall today. Pt's SOA has improved. Pt states she ate dinner last noc, but RN was unsure that she did. Pt had not touched her breakfast. RN stated last known meal was yesterday at lunch. Pt reports good appetite, but continued to not eat her breakfast. Pt unable to recall her last BM. Denies chest pain, fever, chills, N/V/D or cough. Review of Systems General: No Chills HEENT: No Head Aches Pulmonary: No Dyspnea, No Cough Cardiovascular: No: Chest Pain, Palpitations Gastrointestinal: No: Nausea, Vomiting, Abdominal Pain, Diarrhea, Constipation Focused Exam Lactate Level 04/15/21 08:14: Lactic Acid Level 1.68 04/15/21 14:22: Lactic Acid Level 0.66 Time of Focused Exam: 09:30 Objective Exam Vital Signs Vital Signs Date Time Temp Pulse Resp B/P (MAP) Pulse Ox O2 Delivery O2 Flow Rate FiO2 04/17/21 08:30 36.5 40.00 80.00 04/17/21 08:00 98 Vapotherm 80 04/17/21 06:00 114 19 113/65 Capillary Refill : Less Than 3 Seconds General Appearance: No Apparent Distress, WD/WN HEENT: PERRL/EOMI Respiratory: Chest Non Tender, Normal Breath Sounds, No Accessory Muscle Use, No Respiratory Distress, Crackles (diffuse bilaterally) Cardiovascular: No Gallop, No Murmur, Normal Peripheral Pulses, Tachycardia Gastrointestinal: Normal Bowel Sounds, No Organomegaly, No Pulsatile Mass, Non Tender, Soft Extremity: Normal Capillary Refill, Normal Range of Motion, Pedal Edema (1+ pitting), Other (Left BKA with dressed wound on stump) Neurologic/Psychiatric: Alert, Oriented x3, No Motor/Sensory Deficits, scaffolder II- XII Norm as Tested, Other (flat affect) Skin: Normal Color, Warm/Dry Results/Procedures Lab Laboratory Tests 04/17/21 04:32 Patient resulted labs reviewed. Assessment/Plan Assessment and Plan Assess & Plan/Chief Complaint ARF with sepsis d/t atypical pneumonia NSTEMI Acute kidney injury Hypotension Hyponatremia Anemia Elevated LFTs Tobacco Use Anxiety ARF with sepsis d/t atypical pneumonia -Vancomycin and Cefepime -Cultures showed no growth -CXR showed stable diffuse bilateral infiltrates -Increasing oxygen requirements on vapotherm, currently on 40L with 90% FiO2 NSTEMI -Cardiology consulted -EKG showed RBBB -Elevated troponin -Type 2 [place] according to thread puller -Currently on telemetry Acute kidney injury -Improving -Urine output 3.22 ml/kg/hr -BUN 6, Cr 0.66, decreased from yesterday Hypotension -IV fluids, resolved Hyponatremia -Resolved, Na 137 today Anemia -H&H 8.4 and 25, improved from yesterday -Will continue to monitor Elevated LFTs -LFTs improving Tobacco Use -Discussed tobacco cessation Anxiety -Improved -Continue Xanax from home Clinical Quality Measures AMI/AHF: ASA po Prior to arrival: No SWATI RODRIGUEZ MD 04/17/21 1448: Supervisory-Addendum Brief Verification & Attestation Participated in pt care: history, MDM, physical Personally performed: exam, history, MDM, supervision of care Care discussed with: Medical Student Procedures: n/a Results interpretation: Verified all documentation Verification and Attestation of Medical Student E/M Service A medical student performed and documented this service in my presence. I reviewed and verified all information documented by the medical student and made modifications to such information, when appropriate. I personally performed the physical exam and medical decision making. Swati Rodriguez, Apr 17, 2021,14:48 JAYLEEN BALL MED STUDENT Apr 17, 2021 09:12 SWATI RODRIGUEZ MD Apr 17, 2021 14:48
--- NOTE | 2021-04-17 09:12 | Cardiology Progress Note ---
Subjective Date Seen by Provider: Apr 17, 2021 Time Seen by Provider: 09:11 Subjective/Events-last exam Patient is laying down in bed, still on Vapotherm. Review of Systems General: No Chills, No Night Sweats; Fatigue, Malaise; No Appetite, No Other HEENT: No Head Aches, No Visual Changes, No Eye Pain, No Ear Pain, No Dysphasia, No Sinus Congestion, No Post Nasal Drip, No Sore Throat, No Other Pulmonary: Dyspnea; No Cough, No Pleuritic Chest Pain, No Other Cardiovascular: No: Chest Pain, Palpitations, Orthopnea, Paroxysmal Noc. Dyspnea, Edema, Lt Headedness, Other Focused Exam Lactate Level 04/15/21 08:14: Lactic Acid Level 1.68 04/15/21 14:22: Lactic Acid Level 0.66 Time of Focused Exam: 09:30 Objective-Cardiology Exam Last Set of Vital Signs Vital Signs 04/17/21 04/17/21 04/17/21 04/17/21 04/17/21 09:00 10:00 12:00 12:44 14:32 Temp 36.6 Pulse 107 Resp 17 B/P (MAP) 130/83 Pulse Ox 95 O2 Delivery Vapotherm O2 Flow Rate 40.00 FiO2 80 I&O Intake and Output 04/17/21 00:00 Intake Total 3880 ml Output Total 5625 ml Balance -1745 ml Intake Oral 1620 ml IV Total 2260 ml Output Urine Total 5625 ml General: Alert, Oriented X3, Cooperative HEENT: Atraumatic, PERRLA Neck: Supple, No JVD, No Thyromegaly Lungs: Normal Air Movement, Other (Bilateral rhonchi) Heart: Regular Rate, Normal S1, Normal S2, No Murmurs Abdomen: Normal Bowel Sounds, Soft, No Tenderness, No Hepatosplenomegaly, No Masses Extremities: No Clubbing, No Cyanosis, No Edema, Normal Pulses, No Tenderness/Swelling Skin: No Rashes, No Breakdown, No Significant Lesion Neuro: Normal Speech, Normal Tone, Sensation Intact Psych/Mental Status: Mental Status NL, Mood NL Results Lab Laboratory Tests 04/17/21 04:32 A/P-Cardiology Admission Diagnosis Chest pain Acute respiratory failure HTN Tobaccoism Assessment/Plan Chest pain, nonspecific etiology, denies any active chest pain at this time. EKG shows SR with RBBB, no acute ST changes,no previous EKG for comparison. BNP el evated. Troponin mildly elevated, likely type 2 [place] d/t hypoxemia. Conservative management is recommended at this time. Continue to monitor Acute respiratory failure with sepsis, atypical pneumonia versus fluid overload from kidney and heart failure. Patient had elevated edema D dimer, maintained on Lovenox, planning for CTA today. Hypotension, currently blood pressure is better. Continue to monitor Echocardiogram showed normal left ventricular size with normal contractility, moderate tricuspid regurgitation with dilated right heart chambers and PA pressure 30 to 35 mmHg Acute renal failure, reports no hx of CKD, renal functions are better. Continue on IV fluid and monitor History of hypertension, blood pressure is better at this time, had episode of hypotension. Continue to monitor Anemia, unknown etiology, possibly anemia or chronic disease, continue to monitor H/H. Tobaccoism Family hx of CAD. 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 Has some erythema and small wound to left stump, continue to monitor. NICHOLAS ACEVEDO MD Apr 17, 2021 09:12
--- NOTE | 2021-04-17 09:42 | Physical Therapy Daily Note ---
PT Daily Note-Current Subjective Patient in bed pre tx, agrees to PT, has no complaints of pain. Appearance Patient in WC post tx, heading down to CT Mental Status Patient Orientation: Person, Confused Attachments: Oxygen, Umana Catheter Transfers SCALE: Activities may be completed with or without assistive devices. 6-Rbtyudubsq-ecrvgvv completes the activity by him/herself with no assistance from a helper. 5-Set-up or Clean-up Assistance-helper sets up or cleans up; patient completes activity. Hickman assists only prior to or following the activity. 4-Supervision or Touching Assistance-helper provides verbal cues and/or touching/steadying and/or contact guard assistance as patient completes activity. Assistance may be provided throughout the activity or intermittently. 3-Partial/Moderate Assistance-helper does LESS THAN HALF the effort. Hickman lifts, holds or supports trunk or limbs, but provides less than half the effort. 2-Substantial/Maximal Assistance-helper does MORE THAN HALF the effort. Hickman lifts or holds trunk or limbs and provides more than half the effort. 0-Llnfdhuxx-mmbkdj does ALL the effort. Patient does none of the effort to complete the activity. Or, the assistance of 2 or more helpers is required for the patient to complete the activity. If activity was not attempted, code reason: 7-Patient Refused. 9-Not Applicable-not attempted and the patient did not perform the activity before the current illness, exacerbation or injury. 10-Not Attempted due to Environmental Limitations-(lack of equipment, weather restraints, etc.). 88-Not Attempted due to Medical Conditions or Safety Concerns. Roll Left & Right (QC): 4 Lying to Sitting/Side of Bed(Q: 4 Sit to Stand (QC): 4 Chair/Rxl-nr-Jprfn Xfer(QC): 4 At the beginning of tx healthcare workers come in to take patient to CT. Will assist getting her into WC to work on standing and transfers. Patient performs supine <-> sit and sit to stand with CGA, transfers with CGA. However, patient is very confused, has slow processing, needs multiple cues to perform activity and cues for hand placement and safety. 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 Time Frame: Apr 23, 2021 Roll Left & Right (QC): 6 Sit to Lying (QC): 6 Lying-Sitting on Side/Bed(QC): 6 Sit to Stand (QC): 4 Chair/Oxu-xr-Ujziq Xfer(QC): 4 Walk 10 feet (QC): 4 PT Plan Problem List Problem List: Activity Tolerance, Functional Strength, Safety, Balance, Gait, Transfer, Bed Mobility, ROM Treatment/Plan Treatment Plan: Continue Plan of Care Treatment Plan: Bed Mobility, Education, Functional Activity Deven, Functional Strength, Gait, Safety, Therapeutic Exercise, Transfers Treatment Duration: Apr 23, 2021 Frequency: 6 times per week Estimated Hrs Per Day: .25 hour per day Patient and/or Family Agrees t: Yes Safety Risks/Education Patient Education: Transfer Techniques, Correct Positioning, Safety Issues Teaching Recipient: Patient Teaching Methods: Demonstration, Discussion Response to Teaching: Reinforcement Needed Time/GCodes Time In: 906 Time Out: 917 Total Billed Treatment Time: 11 Total Billed Treatment 1 visit FA 11' HALEY MORENO PT Apr 17, 2021 09:42
--- NOTE | 2021-04-17 10:11 | Diagnostic Imaging Report ---
PROCEDURE: CT chest with contrast only. TECHNIQUE: Multiple contiguous axial images were obtained through the chest after administration of intravenous contrast. Auto Exposure Controls were utilized during the CT exam to meet ALARA standards for radiation dose reduction. DATE: April 17, 2021. COMPARISON: This radiograph April 17, 2021. INDICATION: 50-year-old female, shortness of breath. Sepsis. FINDINGS: There is multifocal bilateral groundglass type lung consolidation. There is respiratory motion artifact. There is no identified pulmonary nodule. There is no lung mass. There is no pneumothorax. There is no pleural effusion. There is no identified central or proximal segmental pulmonary embolus. There is limited evaluation for more distal emboli given the timing of the contrast bolus in degree of motion artifact. The heart is not enlarged. There is no pericardial effusion. There is no identified abnormally enlarged mediastinal, hilar, or axillary lymph node meeting CT size criteria for adenopathy. The patient is status post cholecystectomy. The additional visualized portions of the upper abdomen are unremarkable. There is no identified acute bony abnormality. IMPRESSION: CT CHEST. 1. Multifocal bilateral predominantly groundglass lung consolidation. Differential considerations include multifocal pneumonia and pneumonitis which could relate to COVID 19 infection. Other atypical infectious etiologies and causes of pneumonitis are also in the differential diagnosis. Edema including noncardiogenic causes is also a differential consideration. 2. No identified central or proximal segmental pulmonary embolus. Report was faxed to [facility] by [email or web address] at 10:10am. Dictated by: Dictated on workstation # [id number]
[2021-04-17] MEDS: VANCOMYCIN 1 GM/NS 250 ML IVPB IV SCH ×4 (10:40→20:23)
[2021-04-17] MEDS: ENOXAPARIN 80 MG/0.8 ML (LOVENOX) SYR SC SCH ×2 (10:40→20:23)
[2021-04-17] MEDS: VASOPRESSIN INJECTION 20 UNIT in NS (IVPB) 100 ML IV SCH (10:40)
[2021-04-18] MEDS: CEFEPIME INJECTION 1,000 MG in WATER (STERILE) FOR INJECTION 10 ML IV SCH ×4 (00:30→17:55)
[2021-04-18] MEDS: VASOPRESSIN INJECTION 20 UNIT in NS (IVPB) 100 ML IV SCH ×3 (01:58→19:52)
[2021-04-18] MEDS: RT-ALBUTEROL SULF 2.5 MG/3 ML PRE-MIX VIAL INH SCH ×4 (02:51→21:02)
[2021-04-18 04:45] LABS: BASOPHILS # (AUTO) 0.1 10^3/uL (0.0-0.1); BASOPHILS % (AUTO) 0 % (0-10); EOSINOPHILS # (AUTO) 0.4 10^3/uL (0.0-0.3); EOSINOPHILS % (AUTO) 3 % (0-10); HEMATOCRIT 27 % (35-52); HEMOGLOBIN 8.9 g/dL (11.5-16.0); LYMPHOCYTES # (AUTO) 1.1 10^3/uL (1.0-4.0); LYMPHOCYTES % (AUTO) 10 % (12-44); MEAN CORPUSCULAR HEMOGLOBIN 28 pg (25-34); MEAN CORPUSCULAR HGB CONC 33 g/dL (32-36); MEAN CORPUSCULAR VOLUME 84 fL (80-99); MEAN PLATELET VOLUME 8.3 fL (9.0-12.2); MONOCYTES # (AUTO) 0.4 10^3/uL (0.0-1.0); MONOCYTES % (AUTO) 3 % (0-12); NEUTROPHILS # (AUTO) 9.7 10^3/uL (1.8-7.8); NEUTROPHILS % (AUTO) 83 % (42-75); PLATELET COUNT 596 10^3/uL (130-400); WHITE BLOOD COUNT 11.7 10^3/uL (4.3-11.0)
[2021-04-18 05:05] LABS: ALBUMIN 2.9 GM/DL (3.2-4.5); POTASSIUM 4.1 MMOL/L (3.6-5.0)
[2021-04-18 05:06] LABS: CALCIUM 9.3 MG/DL (8.5-10.1)
[2021-04-18 05:07] LABS: TOTAL PROTEIN 5.8 GM/DL (6.4-8.2)
[2021-04-18 05:09] LABS: BILIRUBIN,TOTAL 0.3 MG/DL (0.1-1.0)
[2021-04-18 05:10] LABS: PHOSPHORUS 2.4 MG/DL (2.3-4.7)
[2021-04-18 05:11] LABS: CREATININE SERUM 0.55 MG/DL (0.60-1.30)
[2021-04-18 05:14] LABS: MAGNESIUM 1.7 MG/DL (1.6-2.4)
--- NOTE | 2021-04-18 08:14 | Cardiology Progress Note ---
Subjective Date Seen by Provider: Apr 18, 2021 Time Seen by Provider: 08:13 Subjective/Events-last exam Patient is laying down in bed, maintained on Vapotherm, still having shortness of breath, no other complaints Review of Systems General: No Chills, No Night Sweats; Fatigue; No Malaise, No Appetite, No Other HEENT: No Head Aches, No Visual Changes, No Eye Pain, No Ear Pain, No Dysphasia, No Sinus Congestion, No Post Nasal Drip, No Sore Throat, No Other Pulmonary: Dyspnea; No Cough, No Pleuritic Chest Pain, No Other Cardiovascular: No: Chest Pain, Palpitations, Orthopnea, Paroxysmal Noc. Dyspnea, Edema, Lt Headedness, Other Focused Exam Lactate Level 04/15/21 08:14: Lactic Acid Level 1.68 04/15/21 14:22: Lactic Acid Level 0.66 Time of Focused Exam: 09:30 Objective-Cardiology Exam Last Set of Vital Signs Vital Signs 04/18/21 04/18/21 04/18/21 01:53 06:00 07:12 Temp 37.0 Pulse 105 Resp 15 B/P (MAP) 117/88 Pulse Ox 97 O2 Delivery Vapotherm O2 Flow Rate 30.00 FiO2 65 I&O Intake and Output 04/18/21 00:00 Intake Total 805 ml Output Total 3450 ml Balance -2645 ml Intake Oral 805 ml Output Urine Total 3450 ml General: Alert, Oriented X3, Cooperative HEENT: Atraumatic, PERRLA Neck: Supple, No JVD, No Thyromegaly Lungs: Normal Air Movement, Other (Bilateral rhonchi) Heart: Regular Rate, Normal S1, Normal S2, No Murmurs Abdomen: Normal Bowel Sounds, Soft, No Tenderness, No Hepatosplenomegaly, No Masses Extremities: No Clubbing, No Cyanosis, No Edema, Normal Pulses, No Tenderness/Swelling Skin: No Rashes, No Breakdown, No Significant Lesion Neuro: Normal Speech, Normal Tone, Sensation Intact Psych/Mental Status: Mental Status NL, Mood NL Results Lab Laboratory Tests 04/18/21 03:50 A/P-Cardiology Admission Diagnosis Chest pain Acute respiratory failure HTN Tobaccoism Assessment/Plan Chest pain, nonspecific etiology, resolved, denies any active chest pain at this time. EKG shows SR with RBBB, no acute ST changes,no previous EKG for comparison. BNP elevated. Troponin mildly elevated, likely type 2 PR d/t hypoxemia. Conservative management is recommended at this time. Continue to monitor Acute respiratory failure with sepsis, atypical pneumonia versus fluid overload from kidney and heart failure. CTA of the chest did not show any pulmonary embolism, ARDS picture. Managed by primary care team Hypotension, currently blood pressure is better. Continue to monitor Echocardiogram showed normal left ventricular size with normal contractility, moderate tricuspid regurgitation with dilated right heart chambers and PA pressure 30 to 35 mmHg Acute renal failure, reports no hx of CKD, renal functions are better. Continue to monitor History of hypertension, blood pressure is better at this time, had episode of hypotension. Continue to monitor Anemia, unknown etiology, possibly anemia or chronic disease, continue to monitor H/H. Tobaccoism Family hx of CAD. 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 Has some erythema and small wound to left stump, continue to monitor. NICHOLAS ACEVEDO MD Apr 18, 2021 08:14
[2021-04-18] MEDS: PREGABALIN 100 MG (LYRICA) CAPSULE PO SCH ×3 (09:34→21:37)
[2021-04-18] MEDS: guaiFENesin (MUCINEX) 600 MG TAB PO SCH ×2 (09:34→21:37)
[2021-04-18] MEDS: ENOXAPARIN 80 MG/0.8 ML (LOVENOX) SYR SC SCH ×2 (09:34→21:37)
[2021-04-18] MEDS: ASPIRIN 81 MG CHEW (CHILDREN'S ASA) PO SCH (09:34)
[2021-04-18] MEDS: lisINopril 10 MG (PRINIVIL) TABLET PO SCH (09:34)
--- NOTE | 2021-04-18 10:15 | Progress Note - Hospitalist ---
JAYLEEN BALL A MED STUDENT 04/18/21 1015: Subjective HPI/CC On Admission Date Seen by Provider: Apr 18, 2021 Time Seen by Provider: 10:00 50 yo female presented to ED for SOA, cough, chest pressure, lightheadedness and nausea/vomiting for the last week. Pt has hx of HTN and tobacco use 1 ppd for over 20 years. Pt is still visibly SOA on bipap in ICU. Pt states her N/V are better since being given Zofran. Pt would like Xanax for her anxiety, states she takes it at home. 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 Subjective/Events-last exam Pt is significantly more confused than yesterday. Pt can state her name, but upon asking how old she is and where she is at she repeats "[birth year]". Pt states she is still a little SOA, but denies chest pain or pain in general. When talking to the RN, she stated the pt was confused and repeated her birthday multiple times as 68 when asked who she was. Pts mental status/orientation seems to be deteriorating. Oxygen requirement has decreased to vapotherm 25L at 60% FiO2 with saturation of 93%. Pt denies having much of an appetite and can't recall the last time she ate. Review of Systems General: No Chills Pulmonary: Dyspnea; No Cough Cardiovascular: No: Chest Pain, Palpitations Gastrointestinal: No: Nausea, Vomiting, Abdominal Pain, Diarrhea, Constipation Genitourinary: No Dysuria, No Frequency Focused Exam Lactate Level 04/15/21 14:22: Lactic Acid Level 0.66 Time of Focused Exam: 09:30 Objective Exam Vital Signs Vital Signs Date Time Temp Pulse Resp B/P (MAP) Pulse Ox O2 Delivery O2 Flow Rate FiO2 04/18/21 09:34 36.3 04/18/21 09:06 93 Vapotherm 25.00 60 04/18/21 06:00 105 15 117/88 Capillary Refill : Less Than 3 Seconds General Appearance: No Apparent Distress, WD/WN HEENT: PERRL/EOMI Respiratory: Chest Non Tender, Normal Breath Sounds, No Accessory Muscle Use, No Respiratory Distress, Crackles (diffuse bilaterally) Cardiovascular: No Gallop, No Murmur, Normal Peripheral Pulses, Tachycardia Gastrointestinal: Normal Bowel Sounds, No Organomegaly, No Pulsatile Mass, Non Tender, Soft Extremity: Normal Capillary Refill, Normal Range of Motion, Non Tender, No Calf Tenderness, No Pedal Edema, Other (Left BKA with bandaged wound) Neurologic/Psychiatric: Alert, No Motor/Sensory Deficits, Normal Mood/Affect, supervisory lifeguard II-XII Norm as Tested, Disoriented, Other (not oriented to place or time, can recall name, but not ) Skin: Normal Color, Warm/Dry Results/Procedures Lab Laboratory Tests 04/18/21 03:50 Patient resulted labs reviewed. Assessment/Plan Assessment and Plan Assess & Plan/Chief Complaint ARF with sepsis d/t atypical pneumonia NSTEMI Acute kidney injury Hypotension Hyponatremia Anemia Elevated LFTs Tobacco Use Anxiety ARF with sepsis d/t atypical pneumonia -Vancomycin and Cefepime -Cultures showed no growth -CXR showed stable diffuse bilateral infiltrates -Decreasing oxygen requirements on vapotherm, currently on 25L with 60% FiO2 Altered Mental Status -Will order CT head to evaluate for acute changes -Suspect that pt has hx of ETOH abuse and that is cause of current confusion, will f/u with family NSTEMI -Cardiology consulted -EKG showed RBBB -Elevated troponin -Type 2 [place] according to transit operations supervisor -Currently on telemetry -No changes since admission Acute kidney injury -Improving -Urine output 2.08 ml/kg/hr -Fluid deficit of 2.645 L -BUN 6, Cr 0.55, stable from yesterday Hypotension -IV fluids, resolved Hyponatremia -Resolved, Na 143 today Anemia -H&H 8.9 and 27, improved from yesterday -Will continue to monitor Elevated LFTs -LFTs improving Tobacco Use -Discussed tobacco cessation Anxiety -Improved -Continue Xanax from home Clinical Quality Measures AMI/AHF: ASA po Prior to arrival: CLAUDIO Silva MD 04/18/21 1432: Assessment/Plan Assessment and Plan Assess & Plan/Chief Complaint Patient remains quite altered. Knows her name and birthdate though answers her birthdate to multiple questions inappropriately. She stares straight ahead most of the time and does not make eye contact. Returned to bedside later to talk to her daughter and mother. We discussed her medical history with overdoses and substance abuse but they are certain she hasn't had issues with that recently and deny any recent alcohol consumption. They requested transfer to a facility with neurology. I attempted to transfer to [facility], [facility], [facility], [facility], [facility], [facility], [facility], [place], and [place] but they were all on diversion. I did speak with [facility] in [place], [place] and while they did have beds the patient was declined transfer. I informed them of clinical condition and history and relative improvement in pneumonia with worsening mentation. I spoke with neurology, Dr Ruvalcaba, who stated there was nothing different that he would do but consider an MRI or LP and that her altered mentation is likely due to pneumonia still. I went back to the room and discussed all of this with her daughter Haley and her mom. They requested to not go any further than where I have already called for transfers and get the MRI and see how she is tomorrow. Answered all of their other questions about her medical status, labs, and current medications to the best of my ability. Will revisit tomorrow. Supervisory-Addendum Brief Verification & Attestation Participated in pt care: history, MDM, physical Personally performed: exam, history, MDM, supervision of care Care discussed with: Medical Student Procedures: n/a Results interpretation: Verified all documentation Verification and Attestation of Medical Student E/M Service A medical student performed and documented this service in my presence. I reviewed and verified all information documented by the medical student and made modifications to such information, when appropriate. I personally performed the physical exam and medical decision making. Claudio Rodriguez, Apr 18, 2021,14:09 JAYLEEN BALL MED STUDENT Apr 18, 2021 10:15 CLAUDIO RODRIGUEZ MD Apr 18, 2021 14:32
--- NOTE | 2021-04-18 11:44 | Physical Therapy Daily Note ---
PT Daily Note-Current Subjective Patient in bed pre tx, agrees to PT, has no complaints of pain. Appearance Patient in bed post tx with nurse call, phone, tray, all needs met. Mental Status Patient Orientation: Person, Confused Attachments: Oxygen, Umana Catheter Transfers SCALE: Activities may be completed with or without assistive devices. 7-Jyqhvhieof-mjjutog completes the activity by him/herself with no assistance from a helper. 5-Set-up or Clean-up Assistance-helper sets up or cleans up; patient completes activity. Parks assists only prior to or following the activity. 4-Supervision or Touching Assistance-helper provides verbal cues and/or touching/steadying and/or contact guard assistance as patient completes activity. Assistance may be provided throughout the activity or intermittently. 3-Partial/Moderate Assistance-helper does LESS THAN HALF the effort. Parks lifts, holds or supports trunk or limbs, but provides less than half the effort. 2-Substantial/Maximal Assistance-helper does MORE THAN HALF the effort. Parks lifts or holds trunk or limbs and provides more than half the effort. 1-Ycsoygpmk-fyqjbc does ALL the effort. Patient does none of the effort to complete the activity. Or, the assistance of 2 or more helpers is required for the patient to complete the activity. If activity was not attempted, code reason: 7-Patient Refused. 9-Not Applicable-not attempted and the patient did not perform the activity before the current illness, exacerbation or injury. 10-Not Attempted due to Environmental Limitations-(lack of equipment, weather restraints, etc.). 88-Not Attempted due to Medical Conditions or Safety Concerns. Roll Left & Right (QC): 6 Sit to Lying (QC): 6 Lying to Sitting/Side of Bed(Q: 6 Discussed with nurse, patient is more confused today, nurse is not confident that patient would be safe in recliner even with a chair alarm. Will stay in bed post tx. Patient is very confused. She does sit up when asked and turns to the edge of the bed but from there she stares blankly ahead. This therapist tries to get the patient to stand but she doesn't follow directions and doesn't even appear to hear therapist. She will perform a couple of LE exercises while seated but when asked to stand again she still ignores therapist and stares blankly ahead. You can get her attention by asking her questions but she seems to have random answers but still even after you have her attention she will not attempt to stand. When done she lays back down just fine. Exercises Seated Therapy Exercises: Ankle pumps, Long arc quads Seated Reps: 20 (RLE) Treatments sitting, bed mobility, LE exercise Assessment Current Status: Poor Progress Patient very confused, will follow some directions but not others. PT Residential Goals Residential Goals PT Visual Educator Goals Time Frame: Apr 23, 2021 Roll Left & Right (QC): 6 Sit to Lying (QC): 6 Lying-Sitting on Side/Bed(QC): 6 Sit to Stand (QC): 4 Chair/Ebz-bh-Tpfyq Xfer(QC): 4 Walk 10 feet (QC): 4 PT Plan Problem List Problem List: Activity Tolerance, Functional Strength, Safety, Balance, Gait, Transfer, Bed Mobility, ROM Treatment/Plan Treatment Plan: Continue Plan of Care Treatment Plan: Bed Mobility, Education, Functional Activity Deven, Functional Strength, Gait, Safety, Therapeutic Exercise, Transfers Treatment Duration: Apr 23, 2021 Frequency: 6 times per week Estimated Hrs Per Day: .25 hour per day Patient and/or Family Agrees t: Yes Safety Risks/Education Patient Education: Correct Positioning, Safety Issues Teaching Recipient: Patient Teaching Methods: Demonstration, Discussion Response to Teaching: Reinforcement Needed Time/GCodes Time In: 1122 Time Out: 1134 Total Billed Treatment Time: 12 Total Billed Treatment 1 visit FA 12' HALEY MORENO PT Apr 18, 2021 11:44
--- NOTE | 2021-04-18 12:22 | Tele-ICU Progress Note ---
Subjective Date Seen by a Provider: Apr 18, 2021 Time Seen by a Provider: 12:22 Sepsis Event Evaluation Height, Weight, BMI Height: '" Weight: lbs. oz. kg; 25.82 BMI Method: Focused Exam Lactate Level 04/15/21 14:22: Lactic Acid Level 0.66 Time of Focused Exam: 09:30 Exam Exam Patient acknowledged, consented, and participated in this virtual visit which was conducted using real time audio/video Vital Signs Date Time Temp Pulse Resp B/P (MAP) Pulse Ox O2 Delivery O2 Flow Rate FiO2 04/18/21 10:36 95 Vapotherm 25.00 65 04/18/21 10:00 120 14 137/86 92 Vapotherm 30.00 65.00 04/18/21 09:34 36.3 04/18/21 09:06 93 Vapotherm 25.00 60 04/18/21 09:00 118 26 136/88 Vapotherm 30.00 65.00 04/18/21 08:00 93 Vapotherm 25.00 60 04/18/21 08:00 112 14 136/88 96 Vapotherm 30.00 65.00 04/18/21 07:12 97 Vapotherm 30.00 65 04/18/21 07:00 109 15 124/107 94 Vapotherm 30.00 65.00 04/18/21 06:21 106 04/18/21 06:00 105 15 117/88 97 Vapotherm 30.00 65.00 04/18/21 05:00 102 21 114/92 96 Vapotherm 30.00 65.00 04/18/21 04:16 93 Vapotherm 35.00 60 04/18/21 04:00 110 17 132/79 96 Vapotherm 30.00 65.00 04/18/21 03:01 Vapotherm 30.00 65.00 04/18/21 03:00 102 17 97 Vapotherm 40.00 80.00 04/18/21 02:52 98 Vapotherm 40.00 80 04/18/21 02:00 100 13 98 Vapotherm 40.00 80.00 04/18/21 01:53 37.0 Vapotherm 40.00 80.00 04/18/21 01:00 106 16 98 Vapotherm 40.00 80.00 04/18/21 01:00 102 04/18/21 00:00 114 16 95 Vapotherm 40.00 80.00 04/18/21 00:00 96 Vapotherm 40.00 80 04/17/21 23:00 120 18 97 Vapotherm 40.00 80.00 04/17/21 23:00 36.8 Vapotherm 40.00 80.00 04/17/21 22:00 110 16 96 Vapotherm 40.00 80.00 04/17/21 21:00 111 15 97 Vapotherm 40.00 80.00 04/17/21 20:30 94 Vapotherm 40.00 80 04/17/21 20:00 112 18 96 Vapotherm 40.00 80.00 04/17/21 19:00 112 04/17/21 19:00 112 20 96 Vapotherm 40.00 80.00 04/17/21 19:00 36.5 Vapotherm 40.00 80.00 04/17/21 18:00 115 17 98 Vapotherm 40.00 80.00 04/17/21 17:00 116 28 96 Vapotherm 40.00 80.00 04/17/21 16:10 36.4 04/17/21 16:00 96 Vapotherm 40.00 80 04/17/21 16:00 108 18 99 Vapotherm 40.00 80.00 04/17/21 15:00 110 20 98 Vapotherm 40.00 80.00 04/17/21 14:32 95 Vapotherm 40.00 80 04/17/21 14:00 110 16 98 Vapotherm 40.00 80.00 04/17/21 13:00 111 97 Vapotherm 40.00 80.00 04/17/21 12:44 107 I & O 04/18/21 07:00 Intake Total 995 ml Output Total 3050 ml Balance -2055 ml Height & Weight Height: '" Weight: lbs. oz. kg; 25.82 BMI Method: General Appearance: No Apparent Distress, WD/WN HEENT: PERRL/EOMI Neck: Full Range of Motion, Normal Inspection, Non Tender Respiratory: Chest Non Tender, Normal Breath Sounds, No Accessory Muscle Use, No Respiratory Distress, Crackles (diffuse bilaterally) Cardiovascular: No Gallop, No Murmur, Normal Peripheral Pulses, Tachycardia Capillary Refill: Less Than 3 Seconds Peripheral Pulses: 2+ Dorsalis Pedis (R), 2+ Radial Pulses (R), 2+ Radial Pulses (L) Gastrointestinal: normal bowel sounds, non tender, soft; No distended, No guarding, No rebound, No tenderness Extremity: Normal Capillary Refill, Normal Range of Motion, Non Tender, No Calf Tenderness, No Pedal Edema, Other (Left BKA with bandaged wound) Neurologic/Psychiatric: Alert, No Motor/Sensory Deficits, Normal Mood/Affect, professional model II-XII Norm as Tested, Disoriented, Other (not oriented to place or time, can recall name, but not ) Skin: Normal Color, Warm/Dry Lymphatic: No Adenopathy Results Lab Laboratory Tests 04/17/21 04:32 04/18/21 03:50 Assessment/Plan Assessment/Plan (Tele-ICU Physician , Progress Note ) Available chart/ vitals / labs / Images reviewed Video assessment done using teleICU camera, rest of exam as per RN Discussed with RN , EXAM PER RN Events overnight : Afebrile I/O = neg 2600 Drips: ns 100 Pressors: , hemodynamically stable Consultants: Hospital course: 04/15 - CP, ARF - bipap, JAYSON, elv LFT vapotherm 30L 60 % 04/15 - vapotherm 35L 60 % 04/16 - US LE - no DVT 04/17- CT chest - no PE , + GGO 04/18 - vapotherm 25L 60 % , neg I/O, increased confusion ( not fully oriented Consultants: cards A/P Acute resp failure/ hypoxemic - ? VO , ( CT chest -04/17 no PE , + GGO - BIPAP in ER - now on Vapotherm 25L 60 % - some improvement -- follow closely PNA suspected - Flu and Covid negative ( s/p vaccination x2 doses , reportedly - empiric abx cefepime 04/15 - follow cx - JAYSON - received 6 l NS - resolved [id number] on admission = up to 133 tin 24 h - noq 143 - minimal PO intake - will add D5 w and follow closely Confusion , no neuro deficit - resuming suboxone as per PCP - follow Co2 and Na Shock - resolved Eev trop - likely type 2 MS - cards consulted -ECHO EF 55% RVSP 30 -AC - lovenox full dose - as per CARDS Elev LFTs - no abd pain as per RN -- improving follow , additional w/up as per bedside Anemia - presented with hb 8.3 - no active bleeding , trending down Lines : periph (Central Line Necessity Reviewed) Umana: 04/15 OG: Nutrition: po Analgesia: Anxiety/ delirium VTE Prophylaxis: lovenox Stress Ulcer Prophylaxis: Glycemic control: Plans in collaboration with bedside consultants and IM MDs. Discussed with RN to reach out if any questions or concerns A total of 38 minutes of critical care time was devoted to this patient today, required to treat and/or prevent further deterioration of critical care condition ( as above ) PRADEEP MORTON MD Apr 18, 2021 12:22
--- NOTE | 2021-04-18 12:53 | Diagnostic Imaging Report ---
PROCEDURE: CT head without contrast. TECHNIQUE: Multiple contiguous axial images were obtained through the brain without the use of intravenous contrast. Auto Exposure Controls were utilized during the CT exam to meet ALARA standards for radiation dose reduction. INDICATION: Increased confusion. Decreased alertness. Altered mental status. COMPARISON: None. FINDINGS: No intracranial hemorrhage, mass effect, hydrocephalus, or extra-axial fluid collections. No CT evidence of a territorial infarction. Osseous structures are intact. Visualized paranasal sinuses and mastoids are unremarkable. IMPRESSION: Negative head CT. Dictated by: Dictated on workstation # [id number]
[2021-04-18] MEDS: NOREPINEPHRINE 8 MG/250 ML 250 ML IV SCH (13:30)
[2021-04-18] MEDS: D5W 1000 ML IV SOLUTION 1,000 ML IV SCH (13:58)
[2021-04-18] MEDS ORDERED: THIAMINE 100 MG (VITAMIN B-1) TAB PO ONE (14:30)
[2021-04-18 16:11] VITALS: BP 130/83
--- NOTE | 2021-04-18 17:26 | Diagnostic Imaging Report ---
PROCEDURE: MR imaging of the brain without contrast. TECHNIQUE: Multiplanar, multisequence MR imaging of the brain was performed without contrast. INDICATION: Altered mental status, confusion COMPARISON: CT head from the same day FINDINGS: There is motion artifact on multiple sequences, resulting in suboptimal evaluation. The ventricles and cortical sulci appear age-appropriate. No acute ischemia is seen. No acute hemorrhage is seen. There is no midline shift or mass effect. No masses are seen. Visualized paranasal sinuses demonstrate a mucous retention cyst on the right, but otherwise have normal signal. IMPRESSION: 1. Suboptimal examination due to motion, but no acute intracranial abnormality identified. Dictated by: Dictated on workstation # [id number]
[2021-04-19] MEDS: CEFEPIME INJECTION 1,000 MG in WATER (STERILE) FOR INJECTION 10 ML IV SCH ×5 (01:07→23:40)
[2021-04-19] MEDS: RT-ALBUTEROL SULF 2.5 MG/3 ML PRE-MIX VIAL INH SCH ×4 (02:19→21:01)
[2021-04-19 04:14] LABS: BASOPHILS % (AUTO) 1 % (0-10); EOSINOPHILS # (AUTO) 0.4 10^3/uL (0.0-0.3); EOSINOPHILS % (AUTO) 5 % (0-10); HEMATOCRIT 26 % (35-52); HEMOGLOBIN 8.8 g/dL (11.5-16.0); LYMPHOCYTES # (AUTO) 1.8 10^3/uL (1.0-4.0); LYMPHOCYTES % (AUTO) 21 % (12-44); MEAN CORPUSCULAR HEMOGLOBIN 29 pg (25-34); MEAN CORPUSCULAR HGB CONC 34 g/dL (32-36); MEAN CORPUSCULAR VOLUME 85 fL (80-99); MEAN PLATELET VOLUME 8.3 fL (9.0-12.2); MONOCYTES # (AUTO) 0.3 10^3/uL (0.0-1.0); MONOCYTES % (AUTO) 4 % (0-12); NEUTROPHILS # (AUTO) 6.1 10^3/uL (1.8-7.8); NEUTROPHILS % (AUTO) 70 % (42-75); PLATELET COUNT 582 10^3/uL (130-400); WHITE BLOOD COUNT 8.7 10^3/uL (4.3-11.0)
[2021-04-19 04:37] LABS: ALBUMIN 2.9 GM/DL (3.2-4.5); POTASSIUM 3.7 MMOL/L (3.6-5.0)
[2021-04-19 04:38] LABS: CALCIUM 9.2 MG/DL (8.5-10.1)
[2021-04-19 04:39] LABS: TOTAL PROTEIN 5.8 GM/DL (6.4-8.2)
[2021-04-19 04:41] LABS: BILIRUBIN,TOTAL 0.3 MG/DL (0.1-1.0)
[2021-04-19 04:42] LABS: PHOSPHORUS 2.9 MG/DL (2.3-4.7)
[2021-04-19 04:43] LABS: CREATININE SERUM 0.54 MG/DL (0.60-1.30)
[2021-04-19 04:46] LABS: MAGNESIUM 1.7 MG/DL (1.6-2.4)
[2021-04-19] MEDS: VASOPRESSIN INJECTION 20 UNIT in NS (IVPB) 100 ML IV SCH ×2 (05:39→18:34)
[2021-04-19] MEDS: POTASSIUM CL 10MEQ/50ML IVPB 50 ML IV SCH (05:39)
[2021-04-19] MEDS: KCL 20 MEQ TAB (K-DUR) PO SCH (05:39)
[2021-04-19] MEDS: THIAMINE 100 MG (VITAMIN B-1) TAB PO SCH (06:04)
[2021-04-19] MEDS: MAGNESIUM 1 GM/100 ML IVPB 100 ML IV SCH ×3 (06:06→07:14)
[2021-04-19] MEDS: NOREPINEPHRINE 8 MG/250 ML 250 ML IV SCH (07:43)
[2021-04-19] MEDS: PREGABALIN 100 MG (LYRICA) CAPSULE PO SCH ×3 (08:36→21:06)
[2021-04-19] MEDS: ENOXAPARIN 60 MG/0.6 ML (LOVENOX) SYR SC SCH ×2 (08:36→21:06)
[2021-04-19] MEDS: PANTOPRAZOLE 40 MG (PROTONIX) VIAL IV SCH (08:37)
[2021-04-19] MEDS: ASPIRIN 81 MG CHEW (CHILDREN'S ASA) PO SCH (08:37)
[2021-04-19] MEDS: guaiFENesin (MUCINEX) 600 MG TAB PO SCH ×2 (08:37→21:06)
[2021-04-19] MEDS: lisINopril 10 MG (PRINIVIL) TABLET PO SCH (08:37)
--- NOTE | 2021-04-19 08:49 | Progress Note - Hospitalist ---
JAYLEEN BALL A MED STUDENT 04/19/21 0849: Subjective HPI/CC On Admission Date Seen by Provider: Apr 19, 2021 Time Seen by Provider: 08:10 50 yo female presented to ED for SOA, cough, chest pressure, lightheadedness and nausea/vomiting for the last week. Pt has hx of HTN and tobacco use 1 ppd for over 20 years. Pt is still visibly SOA on bipap in ICU. Pt states her N/V are better since being given Zofran. Pt would like Xanax for her anxiety, states she takes it at home. 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 Subjective/Events-last exam Pt sitting up in bed this morning, reports she is doing well. When asked who she is, she states her name is Tabby. When asked where she is and what year it is, the pt restated her name. Pt is not visibly SOA or in pain. Denies pain when asked. Spoke to RN, who said she talked to pt's family about ETOH abuse and they denied any hx of that. Pt's mother is supposed to bring in Suboxone today. Upon reexamination, the pt is more alert and oriented to person and place, but not time. Pt was up in bed attempting to eat breakfast. Focused Exam Time of Focused Exam: 09:30 Objective Exam Vital Signs Vital Signs Date Time Temp Pulse Resp B/P (MAP) Pulse Ox O2 Delivery O2 Flow Rate FiO2 04/19/21 10:18 91 Vapotherm 30.00 70 04/19/21 10:00 109 25 121/75 04/19/21 08:54 36.2 Capillary Refill : Less Than 3 Seconds General Appearance: No Apparent Distress, WD/WN HEENT: PERRL/EOMI Respiratory: Chest Non Tender, No Accessory Muscle Use, No Respiratory Distress, Crackles (diffuse bilaterally), Wheezing (bilaterally) Cardiovascular: No Murmur, Normal Peripheral Pulses, Tachycardia Gastrointestinal: Normal Bowel Sounds, No Organomegaly, No Pulsatile Mass, Non Tender, Soft Extremity: Normal Capillary Refill, Normal Range of Motion, Non Tender, No Calf Tenderness, No Pedal Edema, Other (Left BKA with wound dressing) Neurologic/Psychiatric: No Motor/Sensory Deficits, Normal Mood/Affect, hogshead dumper II- XII Norm as Tested, Disoriented (oriented to person, but not place or time) Skin: Normal Color, Warm/Dry Results/Procedures Lab Laboratory Tests 04/19/21 03:25 Patient resulted labs reviewed. Assessment/Plan Assessment and Plan Assess & Plan/Chief Complaint Acute respiratory failure with sepsis d/t atypical pneumonia NSTEMI Acute kidney injury Hypotension Hyponatremia Anemia Elevated LFTs Tobacco Use Anxiety Acute respiratory failure with sepsis d/t atypical pneumonia -Vancomycin and Cefepime -Cultures showed no growth -Increasing oxygen requirements on vapotherm, currently on 30L with 70% FiO2 Altered Mental Status -CT and MRI of head showed no acute intracranial abnormalities -Family denies hx of ETOH abuse, will bring in suboxone today -Will consider doing a lumbar puncture today -Family did not want this done yesterday, will consult them again today. NSTEMI -Cardiology consulted -EKG showed RBBB -Elevated troponin -Type 2 AK according to occupational therapist rehab manager -Currently on telemetry -No changes since admission Acute kidney injury -Improving -Urine output 1.12 ml/kg/hr -Fluid deficit of 910 mL -BUN 6, Cr 0.54, stable from yesterday Hypotension -IV fluids, resolved Hyponatremia -Resolved, Na 139 today Anemia -H&H 8.8 and 26, stable from yesterday -Will continue to monitor Elevated LFTs -LFTs in normal range Tobacco Use -Discussed tobacco cessation Anxiety -Improved -Continue Xanax from home Clinical Quality Measures AMI/AHF: ASA po Prior to arrival: No CLAUDIO RODRIGUEZ MD 04/19/21 1513: Assessment/Plan Assessment and Plan Assess & Plan/Chief Complaint Visited patient multiple times today to assess mental status. Has drastically improved from yesterday. Return to room to discuss case with mother who was at bedside this afternoon. Reviewed negative MRI findings. Kezia continues to mentate better and is carrying on conversations. We will monitor her for hopeful continued improvement. Leukocytosis resolved. Transaminitis resolved. Supervisory-Addendum Brief Verification & Attestation Participated in pt care: history, MDM, physical Personally performed: exam, history, MDM, supervision of care Care discussed with: Medical Student Procedures: n/a Results interpretation: Verified all documentation Verification and Attestation of Medical Student E/M Service A medical student performed and documented this service in my presence. I reviewed and verified all information documented by the medical student and made modifications to such information, when appropriate. I personally performed the physical exam and medical decision making. Claudio Rodriguez, Apr 19, 2021,15:17 JAYLEEN BALL MED STUDENT Apr 19, 2021 08:49 CLAUDIO RODRIGUEZ MD Apr 19, 2021 15:13
--- NOTE | 2021-04-19 09:47 | Diagnostic Imaging Report ---
Indication: Hypoxemia Portable chest 9:12 AM There is a faint diffuse alveolar infiltrate throughout both lungs. There are no effusions or pneumothoraces. IMPRESSION: Diffuse pulmonary infiltrate in the lungs. Overall appearance is slightly worse compared to exam done on 04/17/2021. Dictated by: Dictated on workstation # [id number]
[2021-04-19] MEDS: [UNRECOGNIZED DRUG - REMARK] SL SCH ×3 (10:20→21:11)
--- NOTE | 2021-04-19 10:53 | Pulmonary Progress Note ---
CHARLA WREN MED STUDENT 04/19/21 1053: Subjective Date Seen by a Provider: Apr 19, 2021 Time Seen by a Provider: 06:30 Subjective/Events-last exam Kezia seems slightly less confused than yesterday. Whereas yesterday she was mute or answered questions with 'yes' or her birthday, today she was able to state she lives in [place] and respond to some questions. She still requires that questions be asked multiple times and does not answer many questions appropriately. RN overnight states she has been pulling her vapotherm tubing off and then becomes hypoxic. Sepsis Event Evaluation Height, Weight, BMI Height: '" Weight: lbs. oz. kg; 25.82 BMI Method: Focused Exam Time of Focused Exam: 09:30 Exam Exam Patient acknowledged, consented, and participated in this virtual visit which was conducted using real time audio/video Vital Signs Date Time Temp Pulse Resp B/P (MAP) Pulse Ox O2 Delivery O2 Flow Rate FiO2 04/19/21 10:18 91 Vapotherm 30.00 70 04/19/21 10:00 109 25 121/75 95 Vapotherm 30.00 70.00 04/19/21 09:00 94 17 117/80 95 Vapotherm 30.00 70.00 04/19/21 08:54 36.2 04/19/21 08:44 97 Vapotherm 30.00 70 04/19/21 08:04 93 Vapotherm 30.00 70 04/19/21 08:00 93 12 117/84 93 Vapotherm 30.00 70.00 04/19/21 07:00 99 04/19/21 07:00 104 24 129/85 94 Vapotherm 30.00 70.00 04/19/21 06:00 105 22 130/90 91 Vapotherm 30.00 70.00 04/19/21 05:00 98 18 119/70 94 Vapotherm 30.00 70.00 04/19/21 04:30 36.7 04/19/21 04:00 90 Vapotherm 30.00 55 04/19/21 04:00 103 25 118/66 93 Vapotherm 30.00 70.00 04/19/21 03:00 97 26 124/78 94 Vapotherm 30.00 70.00 04/19/21 02:42 30.00 65 04/19/21 02:20 93 Vapotherm 30.00 55 04/19/21 02:20 Vapotherm 30.00 70.00 04/19/21 02:00 103 24 120/72 94 Vapotherm 25.00 55.00 04/19/21 01:00 Vapotherm 25.00 55.00 04/19/21 01:00 105 24 122/73 94 Vapotherm 25.00 55.00 04/19/21 01:00 105 04/19/21 00:01 36.8 Vapotherm 30.00 55.00 04/19/21 00:00 104 14 124/89 97 Vapotherm 30.00 60.00 04/19/21 00:00 90 Vapotherm 30.00 55 04/18/21 23:00 114 18 111/85 95 Vapotherm 30.00 60.00 04/18/21 22:30 Vapotherm 30.00 60.00 04/18/21 22:00 106 17 119/79 95 Vapotherm 30.00 65.00 04/18/21 21:30 Vapotherm 30.00 65.00 04/18/21 21:05 98 Vapotherm 30.00 70 04/18/21 21:00 103 19 125/82 98 Vapotherm 30.00 70.00 04/18/21 20:00 105 16 133/84 92 Vapotherm 30.00 70.00 04/18/21 19:50 90 Vapotherm 30.00 70 04/18/21 19:50 90 Vapotherm 30.00 70.00 04/18/21 19:11 36.3 04/18/21 19:00 101 16 127/83 94 Vapotherm 30.00 70.00 04/18/21 19:00 101 04/18/21 18:20 94 Vapotherm 30.00 55.00 04/18/21 18:00 101 37 128/84 98 Vapotherm 30.00 65.00 04/18/21 16:11 36.8 111 93 04/18/21 16:07 36.8 04/18/21 16:00 96 Vapotherm 25.00 65 04/18/21 16:00 106 23 123/85 95 Vapotherm 30.00 65.00 04/18/21 15:00 111 21 130/83 93 Vapotherm 30.00 65.00 04/18/21 14:44 95 Vapotherm 25.00 65 04/18/21 14:00 113 14 127/87 96 Vapotherm 30.00 65.00 04/18/21 13:00 108 15 127/86 92 Vapotherm 30.00 65.00 04/18/21 12:47 110 04/18/21 12:00 110 14 127/87 91 Vapotherm 30.00 65.00 04/18/21 12:00 92 Vapotherm 25.00 65 04/18/21 11:00 120 23 134/83 90 Vapotherm 30.00 65.00 I & O 04/19/21 07:00 Intake Total 660 ml Output Total 1675 ml Balance -1015 ml Height & Weight Height: '" Weight: lbs. oz. kg; 25.82 BMI Method: General Appearance: No Apparent Distress, WD/WN, Other (on vapotherm 30 LPM + 70% fio2) HEENT: PERRL/EOMI Neck: Full Range of Motion, Normal Inspection, Non Tender Respiratory: Chest Non Tender, No Accessory Muscle Use, No Respiratory Distress, Crackles Cardiovascular: No Murmur, Normal Peripheral Pulses, Tachycardia Capillary Refill: Less Than 3 Seconds Peripheral Pulses: 2+ Dorsalis Pedis (R), 2+ Radial Pulses (R), 2+ Radial Pulses (L) Gastrointestinal: normal bowel sounds, non tender, soft; No distended, No guarding, No rebound, No tenderness Extremity: Normal Capillary Refill, Normal Range of Motion, Non Tender, No Calf Tenderness, No Pedal Edema, Other (Left BKA with wound dressing.) Neurologic/Psychiatric: No Motor/Sensory Deficits, Normal Mood/Affect, squeegee finisher II- XII Norm as Tested, Disoriented (oriented to person, but not place or time. Barely answers questions, requires questions be asked multiple times. ) Skin: Normal Color, Warm/Dry Lymphatic: No Adenopathy Results Lab Laboratory Tests 04/18/21 03:50 04/19/21 03:25 Assessment/Plan Assessment/Plan bilateral pneumonia, ARDS ground glass opacities on CT scan 04/17 negative Covid test x2 Blood, urine cultures negative. Negative MRSA swab. -repeat CXR today -on vapotherm 30/70. -on cefepime, completed vanc. -lasix for crackles/volume overload -normothermic, normotensive Persistent confusion. -CT negative yesterday, MRI quality limited due to motion but also negative yesterday -Was started on B vitamins yesterday although family deny alcohol use. -per notes, neurology at [facility] was consulted yesterday. They refused transfer as they would not do anything different besides possible LP. Mild troponin elevation, RBBB on EKG -cardiology has been following & managing. They suspect mild type 2 NV due to hypoxemia -inciting chest pain has since resolved transaminitis, resolved -ammonia level was normal at time of elevation hx left BKA DVT/PE prophylaxis -on lovenox PRADEEP MORTON MD 04/19/21 1530: Supervisory-Addendum Brief Verification & Attestation Participated in pt care: history, MDM, physical Personally performed: history, MDM, supervision of care Care discussed with: Medical Student Procedures: n/a MODIFIED NOTE PLAN as above A medical student performed and documented this service. I reviewed all information documented by the medical student and made modifications to such information, when appropriate. Medical student performed patients physical exam. Medical decision making was done during tele-rounds with this medical student and a bedside RN . Plans in collaboration with bedside consultants and IM MDs Discussed with RN to reach out if any questions or concerns A total of 32 minutes of critical care time was devoted to this patient today, required to treat and/or prevent further deterioration of critical care condition ( as above) . CHARLA WREN MED STUDENT Apr 19, 2021 10:53 PRADEEP MORTON MD Apr 19, 2021 15:30
[2021-04-19] MEDS: D5W 1000 ML IV SOLUTION 1,000 ML IV SCH (11:47)
--- NOTE | 2021-04-19 11:49 | Physical Therapy Daily Note ---
PT Daily Note-Current Subjective Patient in bed pre tx, agrees to PT, has no complaints of pain. Patient is still very confused. Appearance Patient in bedside chair post tx with nurse call, phone, tray, all needs met, chair alarm on. Mental Status Patient Orientation: Person, Confused Attachments: Oxygen, Umana Catheter, IV Transfers SCALE: Activities may be completed with or without assistive devices. 9-Jeoetvqzgd-uxylzst completes the activity by him/herself with no assistance from a helper. 5-Set-up or Clean-up Assistance-helper sets up or cleans up; patient completes activity. [place] assists only prior to or following the activity. 4-Supervision or Touching Assistance-helper provides verbal cues and/or touching/steadying and/or contact guard assistance as patient completes activity. Assistance may be provided throughout the activity or intermittently. 3-Partial/Moderate Assistance-helper does LESS THAN HALF the effort. [place] lifts, holds or supports trunk or limbs, but provides less than half the effort. 2-Substantial/Maximal Assistance-helper does MORE THAN HALF the effort. [place] lifts or holds trunk or limbs and provides more than half the effort. 1-Qzehyhgit-xrrqpy does ALL the effort. Patient does none of the effort to complete the activity. Or, the assistance of 2 or more helpers is required for the patient to complete the activity. If activity was not attempted, code reason: 7-Patient Refused. 9-Not Applicable-not attempted and the patient did not perform the activity before the current illness, exacerbation or injury. 10-Not Attempted due to Environmental Limitations-(lack of equipment, weather restraints, etc.). 88-Not Attempted due to Medical Conditions or Safety Concerns. Roll Left & Right (QC): 6 Lying to Sitting/Side of Bed(Q: 6 Sit to Stand (QC): 4 Chair/Lsf-mr-Gfbmv Xfer(QC): 3 Patient is SBA for sit to stand, she did have one slight LOB during the transfer and needed assist to maintain her balance. Exercises attempted seated exercises but patient would not participate, stared blankly ahead. Treatments bed mobility and transfers Assessment Current Status: Poor Progress patient seems to be more responsive to visual cues than verbal PT Statistical Programmer Goals Statistical Programmer Goals PT Fdc Goals Time Frame: Apr 23, 2021 Roll Left & Right (QC): 6 Sit to Lying (QC): 6 Lying-Sitting on Side/Bed(QC): 6 Sit to Stand (QC): 4 Chair/Dpp-lo-Zjfjc Xfer(QC): 4 Walk 10 feet (QC): 4 PT Plan Problem List Problem List: Activity Tolerance, Functional Strength, Safety, Balance, Gait, Transfer, Bed Mobility, ROM Treatment/Plan Treatment Plan: Continue Plan of Care Treatment Plan: Bed Mobility, Education, Functional Activity Deven, Functional Strength, Gait, Safety, Therapeutic Exercise, Transfers Treatment Duration: Apr 23, 2021 Frequency: 6 times per week Estimated Hrs Per Day: .25 hour per day Patient and/or Family Agrees t: Yes Safety Risks/Education Patient Education: Transfer Techniques, Correct Positioning, Safety Issues Teaching Recipient: Patient Teaching Methods: Demonstration, Discussion Response to Teaching: Reinforcement Needed Time/GCodes Time In: 1130 Time Out: 1145 Total Billed Treatment Time: 15 Total Billed Treatment 1 visit FA 15' HALEY MORENO PT Apr 19, 2021 11:49
--- NOTE | 2021-04-19 12:48 | Cardiology Progress Note ---
Subjective Date Seen by Provider: Apr 19, 2021 Time Seen by Provider: 12:47 Subjective/Events-last exam Patient was seen at bedside, sitting comfortably, still on Vapotherm. Review of Systems General: No Chills, No Night Sweats; Fatigue, Malaise; No Appetite, No Other HEENT: No Head Aches, No Visual Changes, No Eye Pain, No Ear Pain, No Dysphasia, No Sinus Congestion, No Post Nasal Drip, No Sore Throat, No Other Pulmonary: Dyspnea; No Cough, No Pleuritic Chest Pain, No Other Cardiovascular: No: Chest Pain, Palpitations, Orthopnea, Paroxysmal Noc. Dyspnea, Edema, Lt Headedness, Other Focused Exam Time of Focused Exam: 09:30 Objective-Cardiology Exam Last Set of Vital Signs Vital Signs 04/19/21 04/19/21 04/19/21 08:54 10:18 12:00 Temp 36.2 Pulse 98 Resp 13 B/P (MAP) 128/82 Pulse Ox 91 O2 Delivery Vapotherm O2 Flow Rate 30.00 70.00 FiO2 70 I&O Intake and Output 04/19/21 00:00 Intake Total 990 ml Output Total 1900 ml Balance -910 ml Intake Oral 740 ml IV Total 250 ml Output Urine Total 1900 ml General: Alert, Oriented X3, Cooperative HEENT: Atraumatic, PERRLA Neck: Supple, No JVD, No Thyromegaly Lungs: Normal Air Movement, Other (Bilateral rhonchi) Heart: Regular Rate, Normal S1, Normal S2, No Murmurs Abdomen: Normal Bowel Sounds, Soft, No Tenderness, No Hepatosplenomegaly, No Masses Extremities: No Clubbing, No Cyanosis, No Edema, Normal Pulses, No Tenderness/Swelling Skin: No Rashes, No Breakdown, No Significant Lesion Neuro: Normal Speech, Normal Tone, Sensation Intact Psych/Mental Status: Mental Status NL, Mood NL Results Lab Laboratory Tests 04/19/21 03:25 A/P-Cardiology Admission Diagnosis Chest pain Acute respiratory failure HTN Tobaccoism Assessment/Plan Chest pain, nonspecific etiology, resolved, denies any active chest pain at this time. EKG shows SR with RBBB, no acute ST changes,no previous EKG for comparison. BNP elevated. Troponin mildly elevated, likely type 2 MS d/t hypoxemia. Conservative management is recommended at this time. Continue to monitor Acute respiratory failure with sepsis, atypical pneumonia versus fluid overload from kidney and heart failure. CTA of the chest did not show any pulmonary embolism, ARDS picture. Managed by primary care team Hypotension, currently blood pressure is better. Continue to monitor Echocardiogram showed normal left ventricular size with normal contractility, moderate tricuspid regurgitation with dilated right heart chambers and PA pressure 30 to 35 mmHg Acute renal failure, reports no hx of CKD, renal functions are better. Continue to monitor History of hypertension, blood pressure is better at this time, had episode of hypotension. Continue to monitor Anemia, unknown etiology, possibly anemia or chronic disease, continue to monitor H/H. Tobaccoism Family hx of CAD. 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 Has some erythema and small wound to left stump, continue to monitor. NICHOLAS ACEVEDO MD Apr 19, 2021 12:48
[2021-04-19] MEDS: ONDANSETRON 4 MG/2 ML (SDV) Z0FRAN IVP PRN ×2 (14:29→21:12)
[2021-04-20] MEDS: NOREPINEPHRINE 8 MG/250 ML 250 ML IV SCH ×2 (01:57→17:52)
[2021-04-20] MEDS: RT-ALBUTEROL SULF 2.5 MG/3 ML PRE-MIX VIAL INH SCH ×4 (03:02→19:04)
[2021-04-20 04:46] LABS: BASOPHILS # (AUTO) 0.1 10^3/uL (0.0-0.1); BASOPHILS % (AUTO) 1 % (0-10); EOSINOPHILS # (AUTO) 0.5 10^3/uL (0.0-0.3); EOSINOPHILS % (AUTO) 6 % (0-10); HEMATOCRIT 32 % (35-52); HEMOGLOBIN 10.8 g/dL (11.5-16.0); LYMPHOCYTES # (AUTO) 1.9 10^3/uL (1.0-4.0); LYMPHOCYTES % (AUTO) 25 % (12-44); MEAN CORPUSCULAR HGB CONC 33 g/dL (32-36); MEAN CORPUSCULAR VOLUME 86 fL (80-99); MEAN PLATELET VOLUME 8.5 fL (9.0-12.2); MONOCYTES # (AUTO) 0.5 10^3/uL (0.0-1.0); MONOCYTES % (AUTO) 6 % (0-12); NEUTROPHILS # (AUTO) 4.7 10^3/uL (1.8-7.8); NEUTROPHILS % (AUTO) 61 % (42-75); PLATELET COUNT 621 10^3/uL (130-400); WHITE BLOOD COUNT 7.7 10^3/uL (4.3-11.0)
[2021-04-20 04:48] LABS: MEAN CORPUSCULAR HEMOGLOBIN 28 pg (25-34)
[2021-04-20 05:08] LABS: ALBUMIN 3.4 GM/DL (3.2-4.5); POTASSIUM 4.2 MMOL/L (3.6-5.0)
[2021-04-20 05:09] LABS: CALCIUM 9.5 MG/DL (8.5-10.1)
[2021-04-20 05:11] LABS: TOTAL PROTEIN 6.8 GM/DL (6.4-8.2)
[2021-04-20 05:12] LABS: BILIRUBIN,TOTAL 0.3 MG/DL (0.1-1.0)
[2021-04-20 05:14] LABS: CREATININE SERUM 0.58 MG/DL (0.60-1.30); PHOSPHORUS 3.5 MG/DL (2.3-4.7)
[2021-04-20 05:17] LABS: MAGNESIUM 2.1 MG/DL (1.6-2.4)
[2021-04-20] MEDS: VASOPRESSIN INJECTION 20 UNIT in NS (IVPB) 100 ML IV SCH ×2 (06:09→17:52)
[2021-04-20] MEDS: KCL 20 MEQ TAB (K-DUR) PO SCH (06:10)
[2021-04-20] MEDS: MAGNESIUM 1 GM/100 ML IVPB 100 ML IV SCH (06:10)
[2021-04-20] MEDS: POTASSIUM CL 10MEQ/50ML IVPB 50 ML IV SCH (06:10)
[2021-04-20] MEDS: CEFEPIME INJECTION 1,000 MG in WATER (STERILE) FOR INJECTION 10 ML IV SCH (06:21)
[2021-04-20] MEDS: THIAMINE 100 MG (VITAMIN B-1) TAB PO SCH (06:21)
[2021-04-20] MEDS: D5W 1000 ML IV SOLUTION 1,000 ML IV SCH ×2 (06:22→09:39)
[2021-04-20] MEDS: guaiFENesin (MUCINEX) 600 MG TAB PO SCH ×2 (08:27→20:31)
[2021-04-20] MEDS: ASPIRIN 81 MG CHEW (CHILDREN'S ASA) PO SCH (08:27)
[2021-04-20] MEDS: lisINopril 10 MG (PRINIVIL) TABLET PO SCH (08:27)
[2021-04-20] MEDS: PREGABALIN 100 MG (LYRICA) CAPSULE PO SCH ×3 (08:27→20:31)
[2021-04-20] MEDS: PANTOPRAZOLE 40 MG (PROTONIX) VIAL IV SCH (08:27)
[2021-04-20] MEDS: [UNRECOGNIZED DRUG - REMARK] SL SCH ×2 (08:27→20:31)
[2021-04-20] MEDS: ONDANSETRON 4 MG/2 ML (SDV) Z0FRAN IVP PRN ×2 (08:39→20:40)
[2021-04-20] MEDS: ENOXAPARIN 60 MG/0.6 ML (LOVENOX) SYR SC SCH (09:39)
--- NOTE | 2021-04-20 09:39 | Tele-ICU Progress Note ---
Subjective Date Seen by a Provider: Apr 20, 2021 Time Seen by a Provider: 08:00 Subjective/Events-last exam This virtual visit was conducted using real time audio/video. Thank you for asking us to see this patient for respiratory insufficiency and distress due to pna/sepsis. Covid neg. HPC: Recent events: Abx completed, off pressors PE: Resting comfortably. VSS HR BP RR O2 sat 95% on VT 20/50. Tolerated NC e arlier while on camera. HEENT: No obvious masses, adenopathy or JVD. Chest: clear to auscultation. CV: RRR S1 S2 No murmur or added sounds. Abd: Non-tender. Bowel sounds Y. : Unremarkable. Umana Meredith. SHOWCASE MAKER/psychiatric: Much improved mentation. Alert and oriented, grossly intact. No obvious focal findings. Extremities: No edema. L BKA. Capillary refill < 3 seconds. Skin: unremarkable. Results: Decreased Hb 10.8. CXR w B infilts. A/P: Respiratory insufficiency/distress: Wean VT as iris. Available chart/ vitals / labs /images reviewed. Video assessment done using teleICU camera, rest of exam as per RN. Critical Care: critically ill patient. Doing better. Consider D/Cing Dong. Discussed with RN Mirian. Asked RN to reach out to eICU if any questions or concerns later. Time spent with patient/family/coordination of care with other health professionals (mins): 22 Sepsis Event Evaluation Height, Weight, BMI Height: '" Weight: lbs. oz. kg; 25.82 BMI Method: Focused Exam Time of Focused Exam: 09:30 Exam Exam Patient acknowledged, consented, and participated in this virtual visit which was conducted using real time audio/video Vital Signs Date Time Temp Pulse Resp B/P (MAP) Pulse Ox O2 Delivery O2 Flow Rate FiO2 04/20/21 09:19 94 Vapotherm 20.00 50 04/20/21 09:00 96 15 103/84 94 Vapotherm 20.00 50.00 04/20/21 08:01 36.5 04/20/21 08:00 99 16 90 Vapotherm 20.00 50.00 04/20/21 07:48 94 Vapotherm 20.00 50 04/20/21 07:00 86 12 103/68 96 Vapotherm 20.00 50.00 04/20/21 07:00 86 04/20/21 06:00 97 17 105/71 91 Vapotherm 20.00 50.00 04/20/21 05:00 93 17 106/68 95 Vapotherm 20.00 50.00 04/20/21 04:53 Vapotherm 20.00 60 04/20/21 04:49 97 Vapotherm 20.00 50.00 04/20/21 04:00 95 Vapotherm 20.00 60 04/20/21 04:00 36.1 04/20/21 04:00 91 17 104/62 93 Vapotherm 20.00 60.00 04/20/21 03:02 92 Vapotherm 20.00 60 04/20/21 03:00 91 17 112/64 92 Vapotherm 20.00 60.00 04/20/21 02:00 92 19 106/55 96 Vapotherm 20.00 60.00 04/20/21 02:00 91 Vapotherm 20.00 60.00 04/20/21 01:00 87 04/20/21 01:00 87 21 98/54 95 Vapotherm 20.00 50.00 04/20/21 00:00 104 18 114/74 94 Vapotherm 20.00 50.00 04/19/21 23:40 36.4 04/19/21 23:39 95 Vapotherm 20.00 50 04/19/21 23:00 103 18 123/76 90 Vapotherm 20.00 50.00 04/19/21 22:00 101 22 91 Vapotherm 20.00 50.00 04/19/21 21:03 92 Vapotherm 20.00 50 04/19/21 21:00 102 17 113/81 96 Vapotherm 20.00 50.00 04/19/21 20:00 98 17 108/66 96 Vapotherm 20.00 50.00 04/19/21 20:00 95 Vapotherm 20.00 50 04/19/21 20:00 36.3 04/19/21 19:00 105 04/19/21 19:00 105 14 125/82 92 Vapotherm 20.00 50.00 04/19/21 18:00 101 14 116/82 92 Vapotherm 20.00 50.00 04/19/21 17:15 Vapotherm 20.00 50.00 04/19/21 17:00 92 17 115/75 96 Vapotherm 20.00 60.00 04/19/21 16:47 Vapotherm 20.00 60.00 04/19/21 16:09 91 Vapotherm 20.00 70 04/19/21 16:00 93 Vapotherm 20.00 70 04/19/21 16:00 85 12 123/82 95 Vapotherm 20.00 70.00 04/19/21 15:45 36.3 Vapotherm 20.00 70.00 04/19/21 15:44 93 Vapotherm 20.00 70.00 04/19/21 15:00 90 26 123/84 97 Vapotherm 30.00 70.00 04/19/21 14:00 99 20 97 Vapotherm 30.00 70.00 04/19/21 13:00 95 15 98 Vapotherm 30.00 70.00 04/19/21 12:48 102 04/19/21 12:00 36.4 04/19/21 12:00 96 Vapotherm 30.00 70 04/19/21 12:00 98 13 128/82 91 Vapotherm 30.00 70.00 04/19/21 11:00 96 32 116/85 96 Vapotherm 30.00 70.00 04/19/21 10:18 91 Vapotherm 30.00 70 04/19/21 10:00 109 25 121/75 95 Vapotherm 30.00 70.00 I & O 04/20/21 07:00 Intake Total 2150 ml Output Total 1640 ml Balance 510 ml Height & Weight Height: '" Weight: lbs. oz. kg; 25.82 BMI Method: General Appearance: No Apparent Distress, WD/WN, Other (on vapotherm 30 LPM + 70% fio2) HEENT: PERRL/EOMI Neck: Full Range of Motion, Normal Inspection, Non Tender Respiratory: Chest Non Tender, No Accessory Muscle Use, No Respiratory Distress, Crackles Cardiovascular: No Murmur, Normal Peripheral Pulses, Tachycardia Capillary Refill: Less Than 3 Seconds Peripheral Pulses: 2+ Dorsalis Pedis (R), 2+ Radial Pulses (R), 2+ Radial Pulses (L) Gastrointestinal: normal bowel sounds, non tender, soft; No distended, No guarding, No rebound, No tenderness Extremity: Normal Capillary Refill, Normal Range of Motion, Non Tender, No Calf Tenderness, No Pedal Edema, Other (Left BKA with wound dressing.) Neurologic/Psychiatric: No Motor/Sensory Deficits, Normal Mood/Affect, restoration technician II- XII Norm as Tested, Disoriented (oriented to person, but not place or time. Barely answers questions, requires questions be asked multiple times. ) Skin: Normal Color, Warm/Dry Lymphatic: No Adenopathy Results Lab Laboratory Tests 04/19/21 03:25 04/20/21 04:24 Assessment/Plan Assessment/Plan See free text Critical Care: Critically Ill Patient LU PURI MD Apr 20, 2021 09:39
--- NOTE | 2021-04-20 09:39 | Physical Therapy Daily Note ---
PT Daily Note-Current Subjective Pt in bed, agreeable to up chair with encouragement. Pt remains confused, attempting to return to bed mid transfer and again after being seated in chair. Pain Numeric Pain Scale: 0-No Pain Location: No Pain Reported Mental Status Patient Orientation: Person, Confused Attachments: Oxygen, Umana Catheter, IV Multiple lines Transfers SCALE: Activities may be completed with or without assistive devices. 7-Nbdaebdoow-sjjuefc completes the activity by him/herself with no assistance from a helper. 5-Set-up or Clean-up Assistance-helper sets up or cleans up; patient completes activity. [place] assists only prior to or following the activity. 4-Supervision or Touching Assistance-helper provides verbal cues and/or touching/steadying and/or contact guard assistance as patient completes acti vity. Assistance may be provided throughout the activity or intermittently. 3-Partial/Moderate Assistance-helper does LESS THAN HALF the effort. [place] lifts, holds or supports trunk or limbs, but provides less than half the effort. 2-Substantial/Maximal Assistance-helper does MORE THAN HALF the effort. [place] lifts or holds trunk or limbs and provides more than half the effort. 0-Zhhpuscaw-tzlzsp does ALL the effort. Patient does none of the effort to complete the activity. Or, the assistance of 2 or more helpers is required for the patient to complete the activity. If activity was not attempted, code reason: 7-Patient Refused. 9-Not Applicable-not attempted and the patient did not perform the activity before the current illness, exacerbation or injury. 10-Not Attempted due to Environmental Limitations-(lack of equipment, weather restraints, etc.). 88-Not Attempted due to Medical Conditions or Safety Concerns. Lying to Sitting/Side of Bed(Q: 5 Sit to Stand (QC): 4 Chair/Cfs-wj-Xhiqu Xfer(QC): 4 SBA-CGA with FWW with sit<->stand and bed<->chair transfer. VCS for sequencing and to fully complete transfer. Weight Bearing Right Lower Extremity: Right Full Weight Bearing Treatments Transfer to chair. VCS for sequencing, Pt stops mid transfer and needs cues to attend to task. Up in chair with alarm activated, nursing aware of position, O2 in situ. Assessment Current Status: Fair Progress Pt tolerated well. CGA-SBA with transfers for safety. PT Correction Goals Correction Goals PT Cardroom Hand Goals Time Frame: Apr 23, 2021 Roll Left & Right (QC): 6 Sit to Lying (QC): 6 Lying-Sitting on Side/Bed(QC): 6 Sit to Stand (QC): 4 Chair/Jcp-zl-Tafpk Xfer(QC): 4 Walk 10 feet (QC): 4 PT Plan Problem List Problem List: Activity Tolerance, Functional Strength, Safety, Balance, Gait, Transfer, Bed Mobility, ROM Treatment/Plan Treatment Plan: Continue Plan of Care Treatment Plan: Bed Mobility, Education, Functional Activity Deven, Functional Strength, Gait, Safety, Therapeutic Exercise, Transfers Treatment Duration: Apr 23, 2021 Frequency: 6 times per week Estimated Hrs Per Day: .25 hour per day Patient and/or Family Agrees t: Yes Time/GCodes Time In: 833 Time Out: 0845 Total Billed Treatment Time: 11 Total Billed Treatment 1, FA x 11' LUIZ JAIME DPSuzanne Apr 20, 2021 09:39
--- NOTE | 2021-04-20 10:09 | Progress Note - Hospitalist ---
JAYLEEN BALL A MED STUDENT 04/20/21 1009: Subjective HPI/CC On Admission Date Seen by Provider: Apr 20, 2021 Time Seen by Provider: 09:05 50 yo female presented to ED for SOA, cough, chest pressure, lightheadedness and nausea/vomiting for the last week. Pt has hx of HTN and tobacco use 1 ppd for over 20 years. Pt is still visibly SOA on bipap in ICU. Pt states her N/V are better since being given Zofran. Pt would like Xanax for her anxiety, states she takes it at home. 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 Subjective/Events-last exam Pt up in chair after getting a bath this morning. States she is doing much better today. Pt alert, oriented x3, which is great improvement since yesterday. Pt denies SOA, chest pain. Confirms cough and headache d/t cough. Pt reports decreased appetite, but was requesting Diet Dr. Odell. Pt denies BM since admission. Denies pain. Review of Systems General: No Chills, No Fatigue HEENT: Head Aches Pulmonary: No Dyspnea; Cough Cardiovascular: No: Chest Pain, Palpitations Gastrointestinal: No: Nausea, Vomiting, Abdominal Pain, Diarrhea, Constipation Focused Exam Time of Focused Exam: 09:30 Objective Exam Vital Signs Vital Signs Date Time Temp Pulse Resp B/P (MAP) Pulse Ox O2 Delivery O2 Flow Rate FiO2 04/20/21 11:28 36.1 04/20/21 10:00 89 10 107/67 97 Vapotherm 20.00 50.00 04/20/21 09:19 50 Capillary Refill : Less Than 3 Seconds General Appearance: No Apparent Distress, WD/WN HEENT: PERRL/EOMI Respiratory: Chest Non Tender, Normal Breath Sounds, No Accessory Muscle Use, No Respiratory Distress, Crackles (diffuse bilateral) Cardiovascular: No Gallop, No Murmur, Normal Peripheral Pulses, Tachycardia Gastrointestinal: Normal Bowel Sounds, No Organomegaly, No Pulsatile Mass, Non Tender, Soft Extremity: Normal Capillary Refill, Normal Inspection, Normal Range of Motion, Non Tender, No Calf Tenderness, No Pedal Edema Neurologic/Psychiatric: Alert, Oriented x3, No Motor/Sensory Deficits, Normal Mood/Affect, cloth tearer II-XII Norm as Tested Skin: Normal Color, Warm/Dry Results/Procedures Lab Laboratory Tests 04/20/21 04:24 Patient resulted labs reviewed. Assessment/Plan Assessment and Plan Assess & Plan/Chief Complaint Acute respiratory failure with sepsis d/t atypical pneumonia NSTEMI Acute kidney injury Hypotension Hyponatremia Anemia Elevated LFTs Tobacco Use Anxiety Acute respiratory failure with sepsis d/t atypical pneumonia -Vancomycin and Cefepime -Cultures showed no growth -Decreasing oxygen requirements on vapotherm, currently on 20L with 50% FiO2 Altered Mental Status -Marked improvement from yesterday morning, alert and oriented x3 -CT and MRI of head showed no acute intracranial abnormalities -Restarted suboxone -No longer considering Lumbar puncture as mentation has improved NSTEMI -Cardiology consulted -EKG showed RBBB -Elevated troponin -Type 2 MA according to supervisor screen printing -Currently on telemetry -No changes since admission -Switch to prophylactic Lovenox dosage Acute kidney injury -Improving -Urine output 1.18 ml/kg/hr -Fluid +405 mL -BUN 7, Cr 0.58, stable from yesterday Hypotension -IV fluids, resolved Hyponatremia -Resolved, Na 137 today Anemia -H&H 10.8 and 32, improved from yesterday -Will continue to monitor Elevated LFTs -LFTs in normal range Tobacco Use -Discussed tobacco cessation Anxiety -Improved -Continue Xanax from home Clinical Quality Measures AMI/AHF: ASA po Prior to arrival: SWATI Silva MD 04/20/21 1313: Assessment/Plan Assessment and Plan Assess & Plan/Chief Complaint Patient reports feeling much better today. Still has a cough but breathing has improved. Her mentation has improved drastically. She is alert and oriented x3. Earlier this morning she believes the year was 2010 when the nurse asked her. But was able to self correct and knew it was 2020 and acknowledged that she thought it was 2010 earlier. She still has a poor appetite. We will continue on current antibiotics and wean Vapotherm as able. As she is improving from mentation will attempt to keep in same room but if ICU level bed is needed consider transfer to cardiac stepdown so she remains on centralized monitoring. Discussed with Dr. Rosario, cardiology, will decrease Lovenox dosing to just prophylactic for DVT. Supervisory-Addendum Brief Verification & Attestation Participated in pt care: history, MDM, physical Personally performed: exam, history, MDM, supervision of care Care discussed with: Medical Student Procedures: n/a Results interpretation: Verified all documentation Verification and Attestation of Medical Student E/M Service A medical student performed and documented this service in my presence. I reviewed and verified all information documented by the medical student and made modifications to such information, when appropriate. I personally performed the physical exam and medical decision making. Swati Rodriguez, Apr 20, 2021,13:08 JAYLEEN BALL MED STUDENT Apr 20, 2021 10:09 SWATI RODRIGUEZ MD Apr 20, 2021 13:13
--- NOTE | 2021-04-20 10:44 | Cardiology Progress Note ---
Progress Note-Cardiology Events since last exam Date Seen by Provider: Apr 20, 2021 Time Seen by Provider: 10:38 Events since last exam We are following her for a probable type II non-ST elevation myocardial infa rction. She remains in the intensive care unit. She was sitting up in a chair eating breakfast. She is on nasal cannula oxygen. She denies chest pain, dyspnea, palpitations, syncope, or right ankle edema. She denies any previous history of coronary artery disease. Her cardiac risk factors are hypertension and cigarette smoking. She is apparently much more oriented today than she has been since admission. Certain portions of this document may have been dictated utilizing voice recognition technology. Inherent to this technology, typographical and grammatical errors may exist. As much as I am diligent to identify and correct these mistakes, some errors may remain in the document. Vitals Last set of Vitals Signs Vital Signs 04/20/21 04/20/21 04/20/21 08:01 09:19 10:00 Temp 36.5 Pulse 89 Resp 10 B/P (MAP) 107/67 Pulse Ox 97 O2 Delivery Vapotherm O2 Flow Rate 20.00 50.00 FiO2 50 Labs Labs Laboratory Tests 04/20/21 04:24 Exam Vital Signs Vital Signs Date Time Temp Pulse Resp B/P (MAP) Pulse Ox O2 Delivery O2 Flow Rate FiO2 04/20/21 10:00 89 10 107/67 97 Vapotherm 20.00 50.00 04/20/21 09:19 50 04/20/21 08:01 36.5 Physical Exam General: Alert. No acute distress. Eye: No xanthelasma. HENT: Normocephalic. Neck: Jugular venous pressure does not appear elevated. Respiratory: Lungs are clear to auscultation. Respirations are non-labored. Breath sounds are equal. Symmetrical chest wall expansion. Cardiovascular: Normal rate. Regular rhythm. No murmur. No gallop. No edema. Gastrointestinal: Soft. Normal bowel sounds. Skin: Warm. Dry. Left below-knee amputation. Neurologic: Alert and oriented to person, place, time. Cranial nerves 3-11 grossly intact. Psychiatric: Cooperative. Appropriate mood & affect. Labs Laboratory Tests Test 04/20/21 04:24 Range/Units White Blood Count 7.7 4.3-11.0 10^3/uL Red Blood Count 3.79 L 3.80-5.11 10^6/uL Hemoglobin 10.8 #L 11.5-16.0 g/dL Hematocrit 32 L 35-52 % Mean Corpuscular Volume 86 80-99 fL Mean Corpuscular Hemoglobin 28 25-34 pg Mean Corpuscular Hemoglobin Concent 33 32-36 g/dL Red Cell Distribution Width 15.8 H 10.0-14.5 % Platelet Count 621 H 130-400 10^3/uL Mean Platelet Volume 8.5 L 9.0-12.2 fL Immature Granulocyte % (Auto) 1 % Neutrophils (%) (Auto) 61 42-75 % Lymphocytes (%) (Auto) 25 12-44 % Monocytes (%) (Auto) 6 0-12 % Eosinophils (%) (Auto) 6 0-10 % Basophils (%) (Auto) 1 0-10 % Neutrophils # (Auto) 4.7 1.8-7.8 10^3/uL Lymphocytes # (Auto) 1.9 1.0-4.0 10^3/uL Monocytes # (Auto) 0.5 0.0-1.0 10^3/uL Eosinophils # (Auto) 0.5 H 0.0-0.3 10^3/uL Basophils # (Auto) 0.1 0.0-0.1 10^3/uL Immature Granulocyte # (Auto) 0.1 0.0-0.1 10^3/uL Sodium Level 137 135-145 MMOL/L Potassium Level 4.2 3.6-5.0 MMOL/L Chloride Level 95 L 98-107 MMOL/L Carbon Dioxide Level 29 21-32 MMOL/L Anion Gap 13 5-14 MMOL/L Blood Urea Nitrogen 7 7-18 MG/DL Creatinine 0.58 L 0.60-1.30 MG/DL Estimat Glomerular Filtration Rate 110 BUN/Creatinine Ratio 12 Glucose Level 111 H 70-105 MG/DL Calcium Level 9.5 8.5-10.1 MG/DL Corrected Calcium 10.0 8.5-10.1 MG/DL Phosphorus Level 3.5 2.3-4.7 MG/DL Magnesium Level 2.1 1.6-2.4 MG/DL Total Bilirubin 0.3 0.1-1.0 MG/DL Aspartate Amino Transf (AST/SGOT) 23 5-34 U/L Alanine Aminotransferase (ALT/SGPT) 46 0-55 U/L Alkaline Phosphatase 128 40-136 U/L Total Protein 6.8 6.4-8.2 GM/DL Albumin 3.4 3.2-4.5 GM/DL Diagnosis/Problems Diagnosis/Problems (1) NSTEMI (non-ST elevated myocardial infarction) Status: Acute Assessment & Plan: She had a probable type II non-ST elevation myocardial infarction and there may have also been some element of troponin elevation due to the acute kidney injury which has now resolved. She is not having active chest pain at this time and did not have any ischemic changes on her electrocardiogram. She is presently on aspirin. Her cholesterol level is quite low on no statin medication. We may want to consider an ischemic evaluation after she recovers from this acute, noncardiac illness. This could certainly be done as an outpatient after discharge. (2) Acute respiratory failure with hypoxemia Status: Acute Assessment & Plan: She is gradually improving. The acute respiratory failure with hypoxia may have caused some demand ischemia leading to the type II non-ST elevation myocardial infarction. (3) Primary hypertension Assessment & Plan: Blood pressure is well controlled on her outpatient dose of lisinopril. (4) JAYSON (acute kidney injury) Status: Acute Assessment & Plan: As above, this may have contributed to the rising troponin level. Her renal function has improved. (5) Cigarette smoker Assessment & Plan: Smoking cessation was strongly encouraged to the patient. LIZA JENKINS JR, MD Apr 20, 2021 10:44
[2021-04-20] MEDS: ENOXAPARIN 40 MG/0.4 ML (LOVENOX) SYR SQ SCH (14:13)
[2021-04-20 19:28] VITALS: BP 93/63
[2021-04-21] MEDS: guaiFENesin/DM (ROBITUSSIN DM) 10 ML UDC PO PRN ×2 (00:28→21:31)
[2021-04-21] MEDS: RT-ALBUTEROL SULF 2.5 MG/3 ML PRE-MIX VIAL INH SCH ×4 (03:04→21:03)
[2021-04-21 04:54] LABS: BASOPHILS # (AUTO) 0.1 10^3/uL (0.0-0.1); BASOPHILS % (AUTO) 1 % (0-10); EOSINOPHILS # (AUTO) 0.5 10^3/uL (0.0-0.3); EOSINOPHILS % (AUTO) 8 % (0-10); HEMATOCRIT 33 % (35-52); HEMOGLOBIN 10.8 g/dL (11.5-16.0); LYMPHOCYTES # (AUTO) 1.7 10^3/uL (1.0-4.0); LYMPHOCYTES % (AUTO) 25 % (12-44); MEAN CORPUSCULAR HEMOGLOBIN 28 pg (25-34); MEAN CORPUSCULAR HGB CONC 33 g/dL (32-36); MEAN CORPUSCULAR VOLUME 84 fL (80-99); MEAN PLATELET VOLUME 8.6 fL (9.0-12.2); MONOCYTES # (AUTO) 0.6 10^3/uL (0.0-1.0); MONOCYTES % (AUTO) 9 % (0-12); NEUTROPHILS % (AUTO) 57 % (42-75); PLATELET COUNT 570 10^3/uL (130-400)
[2021-04-21 05:07] LABS: ALBUMIN 3.2 GM/DL (3.2-4.5)
[2021-04-21 05:08] LABS: POTASSIUM 4.2 MMOL/L (3.6-5.0)
[2021-04-21 05:09] LABS: CALCIUM 9.3 MG/DL (8.5-10.1)
[2021-04-21 05:10] LABS: TOTAL PROTEIN 6.5 GM/DL (6.4-8.2)
[2021-04-21 05:12] LABS: BILIRUBIN,TOTAL 0.3 MG/DL (0.1-1.0)
[2021-04-21 05:13] LABS: PHOSPHORUS 3.6 MG/DL (2.3-4.7)
[2021-04-21 05:14] LABS: CREATININE SERUM 0.56 MG/DL (0.60-1.30)
[2021-04-21] MEDS: D5W 1000 ML IV SOLUTION 1,000 ML IV SCH (05:21)
[2021-04-21] MEDS: KCL 20 MEQ TAB (K-DUR) PO SCH (06:13)
[2021-04-21] MEDS: POTASSIUM CL 10MEQ/50ML IVPB 50 ML IV SCH (06:13)
[2021-04-21] MEDS: MAGNESIUM 1 GM/100 ML IVPB 100 ML IV SCH (06:13)
[2021-04-21] MEDS: THIAMINE 100 MG (VITAMIN B-1) TAB PO SCH (07:58)
[2021-04-21] MEDS: [UNRECOGNIZED DRUG - REMARK] SL SCH ×2 (08:01→21:27)
[2021-04-21] MEDS: PANTOPRAZOLE 40 MG (PROTONIX) VIAL IV SCH (08:01)
[2021-04-21] MEDS: ASPIRIN 81 MG CHEW (CHILDREN'S ASA) PO SCH (08:01)
[2021-04-21] MEDS: guaiFENesin (MUCINEX) 600 MG TAB PO SCH ×2 (08:01→21:27)
[2021-04-21] MEDS: lisINopril 10 MG (PRINIVIL) TABLET PO SCH (08:01)
[2021-04-21] MEDS: PREGABALIN 100 MG (LYRICA) CAPSULE PO SCH ×3 (08:01→21:27)
[2021-04-21] MEDS: ONDANSETRON 4 MG/2 ML (SDV) Z0FRAN IVP PRN ×2 (08:03→21:29)
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
[2021-04-21] MEDS: ALPRAZolam 0.5 MG (XANAX) TAB PO PRN ×2 (11:12→18:34)
[2021-04-21] MEDS: ENOXAPARIN 40 MG/0.4 ML (LOVENOX) SYR SQ SCH (14:59)
--- NOTE | 2021-04-21 15:36 | Cardiology Progress Note ---
Progress Note-Cardiology Events since last exam Date Seen by Provider: Apr 21, 2021 Time Seen by Provider: 15:31 Events since last exam We are following her due to probable type II non-ST elevation myocardial inf arction. This morning she was transferred from the ICU to the medical telemetry floor. She feels as though her breathing continues to improve. She still has a slight cough. She denies chest pain, palpitations, or ankle edema of right leg. She just finished taking a shower. Certain portions of this document may have been dictated utilizing voice recognition technology. Inherent to this technology, typographical and grammatical errors may exist. As much as I am diligent to identify and correct these mistakes, some errors may remain in the document. Vitals Last set of Vitals Signs Vital Signs 04/20/21 04/21/21 04/21/21 04/21/21 04/21/21 04/21/21 19:28 04:00 07:55 08:12 12:51 14:21 Temp 36.6 Pulse 84 Resp 12 B/P (MAP) 91/61 Pulse Ox 95 O2 Delivery Nasal Cannula O2 Flow Rate 3.00 FiO2 32 Labs Labs Laboratory Tests 04/21/21 04:15 Exam Vital Signs Vital Signs Date Time Temp Pulse Resp B/P (MAP) Pulse Ox O2 Delivery O2 Flow Rate FiO2 04/21/21 14:21 95 Nasal Cannula 3.00 04/21/21 12:51 84 04/21/21 08:12 36.6 04/21/21 07:55 91/61 04/21/21 04:00 12 04/20/21 19:28 32 Physical Exam General: Alert. No acute distress. Eye: No xanthelasma. HENT: Normocephalic. Neck: Jugular venous pressure does not appear elevated. Respiratory: Lungs are clear to auscultation. Respirations are non-labored. Breath sounds are equal. Symmetrical chest wall expansion. Cardiovascular: Tachycardic. Regular rhythm. No murmur. No gallop. No edema. Gastrointestinal: Soft. Normal bowel sounds. Skin: Warm. Dry. Left below knee amputation. Neurologic: Alert and oriented to person, place, time. Cranial nerves 3-11 grossly intact. Psychiatric: Cooperative. Appropriate mood & affect. Labs Laboratory Tests Test 04/21/21 04:15 Range/Units White Blood Count 7.0 4.3-11.0 10^3/uL Red Blood Count 3.88 3.80-5.11 10^6/uL Hemoglobin 10.8 L 11.5-16.0 g/dL Hematocrit 33 L 35-52 % Mean Corpuscular Volume 84 80-99 fL Mean Corpuscular Hemoglobin 28 25-34 pg Mean Corpuscular Hemoglobin Concent 33 32-36 g/dL Red Cell Distribution Width 15.5 H 10.0-14.5 % Platelet Count 570 H 130-400 10^3/uL Mean Platelet Volume 8.6 L 9.0-12.2 fL Immature Granulocyte % (Auto) 1 % Neutrophils (%) (Auto) 57 42-75 % Lymphocytes (%) (Auto) 25 12-44 % Monocytes (%) (Auto) 9 0-12 % Eosinophils (%) (Auto) 8 0-10 % Basophils (%) (Auto) 1 0-10 % Neutrophils # (Auto) 4.0 1.8-7.8 10^3/uL Lymphocytes # (Auto) 1.7 1.0-4.0 10^3/uL Monocytes # (Auto) 0.6 0.0-1.0 10^3/uL Eosinophils # (Auto) 0.5 H 0.0-0.3 10^3/uL Basophils # (Auto) 0.1 0.0-0.1 10^3/uL Immature Granulocyte # (Auto) 0.1 0.0-0.1 10^3/uL Sodium Level 134 L 135-145 MMOL/L Potassium Level 4.2 3.6-5.0 MMOL/L Chloride Level 94 L 98-107 MMOL/L Carbon Dioxide Level 27 21-32 MMOL/L Anion Gap 13 5-14 MMOL/L Blood Urea Nitrogen 8 7-18 MG/DL Creatinine 0.56 L 0.60-1.30 MG/DL Estimat Glomerular Filtration Rate 114 BUN/Creatinine Ratio 14 Glucose Level 108 H 70-105 MG/DL Calcium Level 9.3 8.5-10.1 MG/DL Corrected Calcium 9.9 8.5-10.1 MG/DL Phosphorus Level 3.6 2.3-4.7 MG/DL Magnesium Level 2.0 1.6-2.4 MG/DL Total Bilirubin 0.3 0.1-1.0 MG/DL Aspartate Amino Transf (AST/SGOT) 18 5-34 U/L Alanine Aminotransferase (ALT/SGPT) 33 0-55 U/L Alkaline Phosphatase 107 40-136 U/L Total Protein 6.5 6.4-8.2 GM/DL Albumin 3.2 3.2-4.5 GM/DL Diagnosis/Problems Diagnosis/Problems (1) NSTEMI (non-ST elevated myocardial infarction) Status: Acute Assessment & Plan: She had a probable type II non-ST elevation myocardial in farction and there may have also been some element of troponin elevation due to the acute kidney injury which has now resolved. She is not having active chest pain at this time and did not have any ischemic changes on her electrocardiogram. She is presently on aspirin. Her cholesterol level is quite low on no statin medication. No beta-pedro luis due to low blood pressure. Although if she remains tachycardic, we may want to stop her lisinopril and change this to beta-pedro luis. We may also want to consider an ischemic evaluation after she recovers from this acute, noncardiac illness. This could certainly be done as an outpatient after discharge. (2) Primary hypertension Assessment & Plan: Blood pressure is well controlled on her outpatient dose of lisinopril. This afternoon she had tachycardia but had just gotten out of the shower. She may also have some tachycardia related to the infection. If the tachycardia does not resolve, we could consider changing lisinopril over to beta-pedro luis as outlined above. (3) Acute respiratory failure with hypoxemia Status: Acute Assessment & Plan: She is gradually improving. The acute respiratory failure with hypoxia may have caused some demand ischemia leading to the type II non-ST elevation myocardial infarction. I have ordered a follow-up chest x-ray for tomorrow. (4) JAYSON (acute kidney injury) Status: Acute Assessment & Plan: As above, this may have contributed to the rising troponin level. Her renal function has been normal for the past several days. (5) Cigarette smoker Assessment & Plan: Smoking cessation was strongly encouraged to the patient. LIZA JENKINS JR, MD Apr 21, 2021 15:36
[2021-04-21] MEDS: CEFEPIME INJECTION 1,000 MG in WATER (STERILE) FOR INJECTION 10 ML IV SCH ×2 (18:20→23:45)
[2021-04-22] MEDS: RT-ALBUTEROL SULF 2.5 MG/3 ML PRE-MIX VIAL INH SCH ×4 (02:10→20:58)
[2021-04-22 05:30] LABS: BASOPHILS # (AUTO) 0.1 10^3/uL (0.0-0.1); BASOPHILS % (AUTO) 1 % (0-10); EOSINOPHILS # (AUTO) 0.6 10^3/uL (0.0-0.3); EOSINOPHILS % (AUTO) 8 % (0-10); HEMATOCRIT 31 % (35-52); HEMOGLOBIN 10.2 g/dL (11.5-16.0); LYMPHOCYTES # (AUTO) 1.7 10^3/uL (1.0-4.0); LYMPHOCYTES % (AUTO) 22 % (12-44); MEAN CORPUSCULAR HEMOGLOBIN 28 pg (25-34); MEAN CORPUSCULAR HGB CONC 33 g/dL (32-36); MEAN CORPUSCULAR VOLUME 85 fL (80-99); MEAN PLATELET VOLUME 8.5 fL (9.0-12.2); MONOCYTES # (AUTO) 0.8 10^3/uL (0.0-1.0); MONOCYTES % (AUTO) 11 % (0-12); NEUTROPHILS # (AUTO) 4.3 10^3/uL (1.8-7.8); NEUTROPHILS % (AUTO) 57 % (42-75); PLATELET COUNT 537 10^3/uL (130-400); WHITE BLOOD COUNT 7.6 10^3/uL (4.3-11.0)
[2021-04-22 05:50] LABS: ALBUMIN 3.1 GM/DL (3.2-4.5); BILIRUBIN,TOTAL 0.2 MG/DL (0.1-1.0); CALCIUM 9.3 MG/DL (8.5-10.1); CREATININE SERUM 0.61 MG/DL (0.60-1.30); MAGNESIUM 1.9 MG/DL (1.6-2.4); PHOSPHORUS 4.7 MG/DL (2.3-4.7); POTASSIUM 4.1 MMOL/L (3.6-5.0); TOTAL PROTEIN 5.9 GM/DL (6.4-8.2)
[2021-04-22] MEDS: MAGNESIUM 1 GM/100 ML IVPB 100 ML IV SCH (05:51)
[2021-04-22] MEDS: KCL 20 MEQ TAB (K-DUR) PO SCH (05:51)
[2021-04-22] MEDS: POTASSIUM CL 10MEQ/50ML IVPB 50 ML IV SCH (05:51)
[2021-04-22] MEDS: THIAMINE 100 MG (VITAMIN B-1) TAB PO SCH (06:30)
[2021-04-22] MEDS: CEFEPIME INJECTION 1,000 MG in WATER (STERILE) FOR INJECTION 10 ML IV SCH ×3 (06:30→18:19)
[2021-04-22] MEDS: guaiFENesin/DM (ROBITUSSIN DM) 10 ML UDC PO PRN ×2 (06:36→20:26)
--- NOTE | 2021-04-22 07:44 | Cardiology Progress Note ---
Subjective Date Seen by Provider: Apr 22, 2021 Time Seen by Provider: 11:04 Subjective/Events-last exam Pt reports that she has a productive cough. States that she is doing well besides the cough. Denies having any other concerns. Review of Systems General: No Chills, No Other (fever) HEENT: No Head Aches, No Visual Changes Pulmonary: No Dyspnea; Cough Cardiovascular: No: Chest Pain, Palpitations, Lt Headedness Gastrointestinal: No: Nausea, Vomiting, Abdominal Pain Musculoskeletal: No: neck pain, shoulder pain, back pain Neurological: No: Weakness, Numbness Focused Exam Time of Focused Exam: 09:30 Objective-Cardiology Exam Last Set of Vital Signs Vital Signs 04/20/21 04/22/21 04/22/21 04/22/21 19:28 08:00 08:21 09:00 Temp 36.6 Pulse 92 Resp 16 B/P (MAP) 89/56 Pulse Ox 94 O2 Delivery High Flow N/C O2 Flow Rate 1.00 FiO2 32 I&O Intake and Output 04/22/21 00:00 Intake Total 1710 ml Output Total 2475 ml Balance -765 ml Intake Oral 1710 ml Output Urine Total 2475 ml # Voids 1 General: Alert, Oriented X3, Cooperative HEENT: Atraumatic Neck: Supple, No JVD Lungs: Clear to Auscultation, Normal Air Movement Heart: Regular Rate, Normal S1, Normal S2, No Murmurs Abdomen: Soft, No Tenderness, No Masses Extremities: No Clubbing, No Cyanosis, No Edema, Normal Pulses Skin: No Rashes, No Breakdown, No Significant Lesion Neuro: Normal Speech Psych/Mental Status: Mental Status NL, Mood NL Results Lab Laboratory Tests 04/22/21 05:15 A/P-Cardiology Admission Diagnosis Chest pain Acute respiratory failure HTN Tobaccoism Assessment/Plan Status post respiratory failure with sepsis, atypical pneumonia, resolved, feeling better, on 1 L nasal cannula, doing better. Monitor and managed by primary care physician Chest pain, nonspecific etiology, resolved, denies any active chest pain at this time. EKG shows SR with RBBB, no acute ST changes,no previous EKG for comparison. BNP elevated. Troponin mildly elevated, likely type 2 [place] d/t hypoxemia. Conservative management is recommended at this time. Planning to evaluate stress test as an outpatient once clinically more stable Hypotension, BP was 93/57 this morning. Asymptomatic. Continue to monitor Echocardiogram showed normal left ventricular size with normal contractility, moderate tricuspid regurgitation with dilated right heart chambers and PA pressure 30 to 35 mmHg Acute renal failure, reports no hx of CKD, renal functions are better. Continue to monitor History of hypertension, blood pressure is better at this time, had episode of hypotension. Continue to monitor Anemia, unknown etiology, possibly anemia or chronic disease, continue to monitor H/H. Tobaccoism Family hx of CAD. 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 Has some erythema and small wound to left stump, continue to monitor. Clinical Quality Measures AMI/AHF: ASA po Prior to arrival: No Supervisory-Addendum Brief Verification & Attestation Participated in pt care: history, MDM, physical Personally performed: exam, history, MDM, supervision of care Care discussed with: Medical Student Procedures: n/a Results interpretation: Verified all documentation Verification and Attestation of Medical Student E/M Service A medical student performed and documented this service in my presence. I reviewed and verified all information documented by the medical student and made modifications to such information, when appropriate. I personally performed the physical exam and medical decision making. Nicholas Rivas, Apr 22, 2021,11:06 ASHER PLASCENCIA Apr 22, 2021 07:44 NICHOLAS RIVAS MD Apr 22, 2021 11:06
[2021-04-22] MEDS: ASPIRIN 81 MG CHEW (CHILDREN'S ASA) PO SCH (09:08)
[2021-04-22] MEDS: PREGABALIN 100 MG (LYRICA) CAPSULE PO SCH ×3 (09:08→20:25)
[2021-04-22] MEDS: lisINopril 10 MG (PRINIVIL) TABLET PO SCH (09:08)
[2021-04-22] MEDS: guaiFENesin (MUCINEX) 600 MG TAB PO SCH ×2 (09:08→20:25)
[2021-04-22] MEDS: ALPRAZolam 0.5 MG (XANAX) TAB PO PRN ×2 (09:08→18:50)
[2021-04-22] MEDS: PANTOPRAZOLE 40 MG (PROTONIX) VIAL IV SCH (09:09)
--- NOTE | 2021-04-22 09:42 | Diagnostic Imaging Report ---
INDICATION: Shortness of breath. COMPARISON: 04/19/2021. FINDINGS: The heart size is normal. There are patchy bilateral pulmonary infiltrates. There is no pleural effusion or pneumothorax. The mediastinum is unremarkable. IMPRESSION: Patchy bilateral pulmonary infiltrates, suspect for atypical pneumonia, possibly Covid. Recommend clinical correlation. The report was faxed to Infection Control by [email or web address]@9:41 AM. Dictated by: Dictated on workstation # [id number]
[2021-04-22] MEDS: [UNRECOGNIZED DRUG - REMARK] SL SCH ×2 (09:49→20:25)
[2021-04-22] MEDS: ONDANSETRON 4 MG/2 ML (SDV) Z0FRAN IVP PRN ×2 (09:49→20:25)
--- NOTE | 2021-04-22 11:02 | Progress Note - Hospitalist ---
Subjective HPI/CC On Admission Date Seen by Provider: Apr 22, 2021 Time Seen by Provider: 09:25 50 yo female presented to ED for SOA, cough, chest pressure, lightheadedness and nausea/vomiting for the last week. Pt has hx of HTN and tobacco use 1 ppd for over 20 years. Pt is still visibly SOA on bipap in ICU. Pt states her N/V are better since being given Zofran. Pt would like Xanax for her anxiety, states she takes it at home. 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 Subjective/Events-last exam She is doing better today. She is not feeling short of breath. She is not having any pain. She has been eating and drinking. She has been up and moving around. She is going to take a shower. Focused Exam Time of Focused Exam: 929 Objective Exam Vital Signs Vital Signs Date Time Temp Pulse Resp B/P (MAP) Pulse Ox O2 Delivery O2 Flow Rate FiO2 04/22/21 09:00 High Flow N/C 1.00 04/22/21 08:21 94 04/22/21 08:00 36.6 92 16 89/56 04/20/21 19:28 32 Capillary Refill : Less Than 3 Seconds General Appearance: No Apparent Distress, WD/WN Respiratory: Lungs Clear, Normal Breath Sounds, No Respiratory Distress Cardiovascular: Regular Rate, Rhythm, No Edema, No Murmur Gastrointestinal: Normal Bowel Sounds, Non Tender, Soft Extremity: Non Tender, No Pedal Edema, Other (Left BKA) Neurologic/Psychiatric: Alert, Oriented x3, No Motor/Sensory Deficits, Normal Mood/Affect Skin: Normal Color, Warm/Dry Results/Procedures Lab Laboratory Tests 04/22/21 05:15 Patient resulted labs reviewed. Imaging: Reviewed Imaging Films, Reviewed Imaging Report Assessment/Plan Assessment and Plan Assess & Plan/Chief Complaint Acute respiratory failure with sepsis Atypical pneumonia Continue antibiotics Oxygen requirement improving NSTEMI Cardiology consulted Presumed type II [place] Hyponatremia Monitor Anemia Stable Occult blood positive Recommend outpatient colonoscopy Tobacco Use Recommend cessation Anxiety Continue Xanax DVT prophylaxis: Lovenox Acute encephalopathy, resolved Acute kidney injury, resolved Hypotension, resolved Elevated LFTs, resolved Diagnosis/Problems Diagnosis/Problems (1) Acute respiratory failure with hypoxemia Status: Acute (2) Atypical pneumonia Status: Acute Clinical Quality Measures AMI/AHF: ASA po Prior to arrival: CHRISTOPHER Iqbal MD Apr 22, 2021 11:02
--- NOTE | 2021-04-22 11:43 | Physical Therapy Daily Note ---
PT Daily Note-Current Subjective Patient in bed pre tx, agrees to PT, has no complaints of pain. Patient appears to no longer be confused. Appearance Patient in bed post tx with nurse call, phone, tray, all needs met. Mental Status Patient Orientation: Person, Place, Situation Attachments: Oxygen Transfers SCALE: Activities may be completed with or without assistive devices. 2-Ursavkrqgc-yrcmqnu completes the activity by him/herself with no assistance from a helper. 5-Set-up or Clean-up Assistance-helper sets up or cleans up; patient completes activity. [place] assists only prior to or following the activity. 4-Supervision or Touching Assistance-helper provides verbal cues and/or touching/steadying and/or contact guard assistance as patient completes activity. Assistance may be provided throughout the activity or intermittently. 3-Partial/Moderate Assistance-helper does LESS THAN HALF the effort. [place] lifts, holds or supports trunk or limbs, but provides less than half the effort. 2-Substantial/Maximal Assistance-helper does MORE THAN HALF the effort. [place] lifts or holds trunk or limbs and provides more than half the effort. 2-Whsrxvnhd-ntjuwi does ALL the effort. Patient does none of the effort to complete the activity. Or, the assistance of 2 or more helpers is required for the patient to complete the activity. If activity was not attempted, code reason: 7-Patient Refused. 9-Not Applicable-not attempted and the patient did not perform the activity before the current illness, exacerbation or injury. 10-Not Attempted due to Environmental Limitations-(lack of equipment, weather restraints, etc.). 88-Not Attempted due to Medical Conditions or Safety Concerns. Roll Left & Right (QC): 6 Sit to Lying (QC): 6 Lying to Sitting/Side of Bed(Q: 6 Sit to Stand (QC): 6 Chair/Azh-ry-Xpoex Xfer(QC): 6 Weight Bearing Right Lower Extremity: Right Full Weight Bearing Gait Training Distance: 100' Walk 10 feet (QC): 6 Walk 50 ft with 2 Turns(QC): 6 Gait Assistive Device: FWW Patient ambulated 100' with a rolling walker without using her prosthetic leg with independence. Stable, brisk ambulation. Exercises Seated Therapy Exercises: Ankle pumps (only on right leg), Long arc quads Seated Reps: 20 Treatments bed mobility and transfers, ambulation, LE exercise Assessment Current Status: Good Progress drastic improvement in functional mobility PT Engagement Manager Goals Longterm Goals PT Longterm Goals Time Frame: Apr 23, 2021 Roll Left & Right (QC): 6 Sit to Lying (QC): 6 Lying-Sitting on Side/Bed(QC): 6 Sit to Stand (QC): 4 Chair/Dmo-ue-Asfmy Xfer(QC): 4 Walk 10 feet (QC): 4 PT Plan Problem List Problem List: Activity Tolerance, Functional Strength, Safety, Balance, Gait, Transfer, ROM Treatment/Plan Treatment Plan: Continue Plan of Care Treatment Plan: Bed Mobility, Education, Functional Activity Deven, Functional Strength, Gait, Safety, Therapeutic Exercise, Transfers Treatment Duration: Apr 23, 2021 Frequency: 6 times per week Estimated Hrs Per Day: .25 hour per day Patient and/or Family Agrees t: Yes Safety Risks/Education Patient Education: Gait Training, Transfer Techniques, Correct Positioning, Safety Issues Teaching Recipient: Patient Teaching Methods: Demonstration, Discussion Response to Teaching: Reinforcement Needed Time/GCodes Time In: 1130 Time Out: 1142 Total Billed Treatment Time: 12 Total Billed Treatment 1 visit FA HALEY CARBAJAL PT Apr 22, 2021 11:43
[2021-04-22] MEDS: ENOXAPARIN 40 MG/0.4 ML (LOVENOX) SYR SQ SCH (13:12)
[2021-04-23] MEDS: CEFEPIME INJECTION 1,000 MG in WATER (STERILE) FOR INJECTION 10 ML IV SCH ×2 (00:44→06:11)
[2021-04-23] MEDS: RT-ALBUTEROL SULF 2.5 MG/3 ML PRE-MIX VIAL INH SCH ×3 (02:21→14:45)
[2021-04-23 05:59] LABS: BASOPHILS # (AUTO) 0.1 10^3/uL (0.0-0.1); BASOPHILS % (AUTO) 1 % (0-10); EOSINOPHILS # (AUTO) 0.5 10^3/uL (0.0-0.3); EOSINOPHILS % (AUTO) 11 % (0-10); HEMATOCRIT 30 % (35-52); HEMOGLOBIN 9.7 g/dL (11.5-16.0); LYMPHOCYTES # (AUTO) 1.4 10^3/uL (1.0-4.0); LYMPHOCYTES % (AUTO) 29 % (12-44); MEAN CORPUSCULAR HEMOGLOBIN 28 pg (25-34); MEAN CORPUSCULAR HGB CONC 32 g/dL (32-36); MEAN CORPUSCULAR VOLUME 86 fL (80-99); MEAN PLATELET VOLUME 8.8 fL (9.0-12.2); MONOCYTES # (AUTO) 0.6 10^3/uL (0.0-1.0); MONOCYTES % (AUTO) 12 % (0-12); NEUTROPHILS # (AUTO) 2.3 10^3/uL (1.8-7.8); NEUTROPHILS % (AUTO) 46 % (42-75); PLATELET COUNT 519 10^3/uL (130-400)
[2021-04-23] MEDS: THIAMINE 100 MG (VITAMIN B-1) TAB PO SCH (06:11)
[2021-04-23 06:25] LABS: ALBUMIN 3.1 GM/DL (3.2-4.5); BILIRUBIN,TOTAL 0.2 MG/DL (0.1-1.0); CALCIUM 9.2 MG/DL (8.5-10.1); CREATININE SERUM 0.62 MG/DL (0.60-1.30); PHOSPHORUS 4.6 MG/DL (2.3-4.7); POTASSIUM 4.1 MMOL/L (3.6-5.0); TOTAL PROTEIN 5.9 GM/DL (6.4-8.2)
[2021-04-23] MEDS: KCL 20 MEQ TAB (K-DUR) PO SCH (07:04)
[2021-04-23] MEDS: POTASSIUM CL 10MEQ/50ML IVPB 50 ML IV SCH (07:04)
[2021-04-23] MEDS: MAGNESIUM 1 GM/100 ML IVPB 100 ML IV SCH (07:04)
--- NOTE | 2021-04-23 07:56 | Cardiology Progress Note ---
Subjective Date Seen by Provider: Apr 23, 2021 Time Seen by Provider: 08:54 Subjective/Events-last exam Pt is currently on 2L of oxygen via [place]. Reports that her cough is still present. When asked she denied any other concerns. Review of Systems General: No Chills, No Other (fever) HEENT: No Visual Changes, No Eye Pain Pulmonary: No Dyspnea; Cough Cardiovascular: No: Chest Pain, Palpitations, Lt Headedness Gastrointestinal: No: Nausea, Vomiting, Abdominal Pain Musculoskeletal: No: neck pain, back pain, leg pain, foot pain Neurological: No: Weakness, Numbness, Change in speech, Confusion Focused Exam Time of Focused Exam: 929 Objective-Cardiology Exam Last Set of Vital Signs Vital Signs 04/20/21 04/23/21 19:28 08:00 Temp 36.5 Pulse 81 Resp 18 B/P (MAP) 169/91 Pulse Ox 97 O2 Delivery High Flow N/C O2 Flow Rate 1.00 FiO2 32 I&O Intake and Output 04/23/21 00:00 Intake Total 4350 ml Balance 4350 ml Intake Oral 1330 ml IV Total 3020 ml # Voids 6 General: Alert, Oriented X3, Cooperative HEENT: Atraumatic, EOMI Neck: Supple, No JVD Lungs: Clear to Auscultation, Normal Air Movement Heart: Regular Rate, Normal S1, Normal S2, No Murmurs Abdomen: Soft, No Tenderness, No Masses Extremities: No Clubbing, No Cyanosis, No Edema, Normal Pulses Skin: No Rashes, No Breakdown, No Significant Lesion Neuro: Normal Speech Psych/Mental Status: Mental Status NL, Mood NL Results Lab Laboratory Tests 04/23/21 05:20 04/23/21 05:50 A/P-Cardiology Admission Diagnosis Chest pain Acute respiratory failure HTN Tobaccoism Assessment/Plan Status post respiratory failure with sepsis, atypical pneumonia, resolved, feeling better, on 2 L nasal cannula, doing better. CXR done yesterday according to radiology showed Patchy bilateral pulmonary infiltrates, suspect for atypical pneumonia, possibly Covid. PCR negative for Covid on 04/15/21 and 04/17/21. Mon itor and managed by medicine. Chest pain, nonspecific etiology, resolved, denies any active chest pain at this time. EKG shows SR with RBBB, no acute ST changes,no previous EKG for comparison. BNP elevated. Troponin mildly elevated, likely type 2 ME d/t hypoxemia. Conservative management is recommended at this time. Planning to evaluate stress test as an outpatient once clinically more stable Hypotension, BP was 92/54 this morning. Asymptomatic. Continue to monitor Echocardiogram showed normal left ventricular size with normal contractility, moderate tricuspid regurgitation with dilated right heart chambers and PA pressure 30 to 35 mmHg Acute renal failure, reports no hx of CKD, renal functions are better. Continue to monitor History of hypertension, blood pressure is better at this time, had episode of hypotension. Continue to monitor Anemia, unknown etiology, possibly anemia or chronic disease, continue to monitor H/H. Tobaccoism Family hx of CAD. 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 Has some erythema and small wound to left stump, continue to monitor. Clinical Quality Measures AMI/AHF: ASA po Prior to arrival: No Supervisory-Addendum Brief Verification & Attestation Participated in pt care: history, MDM, physical Personally performed: exam, history, MDM, supervision of care Care discussed with: Medical Student Procedures: n/a Results interpretation: Verified all documentation Verification and Attestation of Medical Student E/M Service A medical student performed and documented this service in my presence. I reviewed and verified all information documented by the medical student and made modifications to such information, when appropriate. I personally performed the physical exam and medical decision making. Nicholas Rivas, Apr 23, 2021,08:54 ASHER PLASCENCIA Apr 23, 2021 07:56 NICHOLAS RIVAS MD Apr 23, 2021 08:54
[2021-04-23] MEDS: [UNRECOGNIZED DRUG - REMARK] SL SCH (08:46)
[2021-04-23] MEDS: ALPRAZolam 0.5 MG (XANAX) TAB PO PRN (08:46)
[2021-04-23] MEDS: PREGABALIN 100 MG (LYRICA) CAPSULE PO SCH ×2 (08:46→12:47)
[2021-04-23] MEDS: guaiFENesin (MUCINEX) 600 MG TAB PO SCH (08:46)
[2021-04-23] MEDS: lisINopril 10 MG (PRINIVIL) TABLET PO SCH (08:46)
[2021-04-23] MEDS: ASPIRIN 81 MG CHEW (CHILDREN'S ASA) PO SCH (08:46)
[2021-04-23] MEDS: ONDANSETRON 4 MG/2 ML (SDV) Z0FRAN IVP PRN (08:47)
[2021-04-23] MEDS ORDERED: PANTOPRAZOLE 40 MG (PROTONIX) TAB PO SCH (09:00)
[2021-04-23] MEDS ORDERED: CEFDINIR 300 MG (OMNICEF) CAP PO SCH (09:00)
[2021-04-23] MEDS ORDERED: CEFD300C3 PO (12:10)
--- NOTE | 2021-04-23 12:19 | Discharge Summary ---
Discharge Summary Hospital Course Problems/Dx: (1) Acute respiratory failure with hypoxemia Status: Acute (2) Atypical pneumonia Status: Acute (3) Occult blood positive stool Status: Acute (4) Normocytic anemia Status: Acute (5) NSTEMI (non-ST elevation myocardial infarction) Status: Acute (6) Sepsis due to pneumonia Status: Acute Hospital Course Date of Admission: Apr 15, 2021 at 10:55 Admission Diagnosis: Acute respiratory failure with hypoxia, Sepsis due to pneumonia Family Physician/Provider: PremaLocal Physician Date of Discharge: 04/23/21 Discharge Diagnosis: Acute respiratory failure with hypoxia, Sepsis due to pneumonia Hospital Course: Kezia Robbins is a 50-year-old female who was admitted with acute hypoxic respiratory failure and sepsis due to pneumonia. She was started on IV antibiotics and fluids. She required ICU admission and Vapotherm. Her oxygen requirement improved. She was transitioned to oral antibiotics and will complete a course of Omnicef as an outpatient. An oxygen evaluation revealed a 2 L requirement with exertion. She should follow-up with her primary care physician in a week or two. Her course was complicated by anemia which was s table. She had an occult blood which was positive. She was set up to have an outpatient colonoscopy. Her course was also complicated by NSTEMI. Cardiology was consulted and assisted with her care. This was thought to be a type II GA due to her acute illness. She was discharged home in stable condition. Labs and Pending Lab Test: Laboratory Tests 04/23/21 05:20: White Blood Count 5.0, Red Blood Count 3.51L, Hemoglobin 9.7L, Hematocrit 30L, Mean Corpuscular Volume 86, Mean Corpuscular Hemoglobin 28, Mean Corpuscular Hemoglobin Concent 32, Red Cell Distribution Width 15.9H, Platelet Count 519H, Mean Platelet Volume 8.8L, Immature Granulocyte % (Auto) 1, Neutrophils (%) (Auto) 46, Lymphocytes (%) (Auto) 29, Monocytes (%) (Auto) 12, Eosinophils (%) (Auto) 11H, Basophils (%) (Auto) 1, Neutrophils # (Auto) 2.3, Lymphocytes # (Au to) 1.4, Monocytes # (Auto) 0.6, Eosinophils # (Auto) 0.5H, Basophils # (Auto) 0.1, Immature Granulocyte # (Auto) 0.1 04/23/21 05:50: Sodium Level 136, Potassium Level 4.1, Chloride Level 99, Carbon Dioxide Level 2 7, Anion Gap 10, Blood Urea Nitrogen 13, Creatinine 0.62, Estimat Glomerular Filtration Rate 101, BUN/Creatinine Ratio 21, Glucose Level 100, Calcium Level 9.2, Corrected Calcium 9.9, Phosphorus Level 4.6, Magnesium Level 2.0, Total Bilirubin 0.2, Aspartate Amino Transf (AST/SGOT) 13, Alanine Aminotransferase (ALT/SGPT) 20, Alkaline Phosphatase 82, Total Protein 5.9L, Albumin 3.1L Microbiology 04/15/21 MRSA Screen - Final, Complete MRSA not isolated 04/15/21 Blood Culture - Final, Complete No growth 04/15/21 Urine Culture - Final, Complete NO GROWTH Home Meds Active Cefdinir 300 Mg Capsule 300 Mg PO BID 4 Days Reported Tylenol (Acetaminophen) 325 Mg Tablet 650 Mg PO Q6H PRN Bactrim Ds Tablet (Sulfamethoxazole/Trimethoprim) 1 Each Tablet 1 Each PO BID Fluticasone Propionate 16 Gm [place].susp 1 [place] NS DAILY PRN Oxybutynin Chloride ER (Oxybutynin Chloride) 5 Mg Tab.er.24 5 Mg PO DAILY PRN Estradiol Patch Weekly 0.025mg/hr (Estradiol) 1 Each Patch.tdwk 1 Patch TOP TUES Meloxicam 15 Mg Tablet 15 Mg PO 1400 Lisinopril 10 Mg Tablet 10 Mg PO DAILY Buprenorphine-Nalox 8-2Mg Film (Buprenorphine HCl/Naloxone HCl) 1 Each Film 1 Film SQ TID Alprazolam 0.5 Mg Tablet 0.5 Mg PO BID PRN Pregabalin 100 Mg Capsule 100 Mg PO TID Fluvoxamine Maleate 100 Mg Tablet 100 Mg PO BID Hydroxyzine HCl 50 Mg Tablet 50-100 Mg PO Q6H PRN Ondansetron HCl 4 Mg Tablet 4 Mg PO Q8H PRN Assessment/Pt Instructions Take medications as prescribed. Complete your course of antibiotics even if you are feeling better. Follow-up with your primary care physician. You need to have a colonoscopy as an outpatient. Return with worsening shortness of breath or if you feel like you are getting worse. Discharge Planning: <30 minutes discharge planning Discharge Instructions Discharge Diet: No Restrictions Activity as Tolerated: Yes Discharge Physical Examination Vital Signs Vital Signs Date Time Temp Pulse Resp B/P (MAP) Pulse Ox O2 Delivery O2 Flow Rate FiO2 04/23/21 11:11 35.8 68 16 91/53 94 Room Air 04/23/21 09:00 2.00 04/20/21 19:28 32 General Appearance: No Apparent Distress, WD/WN Respiratory: Lungs Clear, Normal Breath Sounds, No Respiratory Distress Cardiovascular: Regular Rate, Rhythm, No Edema, No Murmur Gastrointestinal: Normal Bowel Sounds, Non Tender, Soft Extremity: Non Tender, No Pedal Edema, Other (Left BKA) Skin: Normal Color, Warm/Dry Neurologic/Psychiatric: Alert, Oriented x3, No Motor/Sensory Deficits, Normal Mood/Affect Allergies: Coded Allergies: Penicillins (Verified Allergy, Unknown, Pt has received Cefepime in the past, 04/23/21) Discharge Summary Date of Admission Apr 15, 2021 at 10:55 Date of Discharge Discharge Date: Apr 23, 2021 Discharge Time: 10:20 Admission Diagnosis Acute respiratory failure with sepsis d/t Atypical pneumonia Discharge Diagnosis Acute respiratory failure with sepsis Sepsis due to pneumonia Anemia Occult blood positive stool (1) Acute respiratory failure with hypoxemia Status: Acute (2) Atypical pneumonia Status: Acute (3) Occult blood positive stool Status: Acute (4) Normocytic anemia Status: Acute (5) NSTEMI (non-ST elevation myocardial infarction) Status: Acute (6) Sepsis due to pneumonia Status: Acute Clinical Quality Measures AMI/AHF: ASA po Prior to arrival: CHRISTOPHER Iqbal MD Apr 23, 2021 12:17
[2021-04-23] MEDS: ENOXAPARIN 40 MG/0.4 ML (LOVENOX) SYR SQ SCH (14:01)
--- NOTE | 2021-04-23 14:20 | Physical Therapy Daily Note ---
PT Daily Note-Current Subjective Pt sitting up at EOB upon arrival. Pt agrees to walk for PT. Pain Location: No Pain Reported Mental Status Patient Orientation: Person, Place, Time, Situation Attachments: Oxygen (2L while walking, none at rest) Transfers SCALE: Activities may be completed with or without assistive devices. 5-Pfgpviuebx-bdygpiu completes the activity by him/herself with no assistance from a helper. 5-Set-up or Clean-up Assistance-helper sets up or cleans up; patient completes activity. [place] assists only prior to or following the activity. 4-Supervision or Touching Assistance-helper provides verbal cues and/or touching/steadying and/or contact guard assistance as patient completes activity. Assistance may be provided throughout the activity or intermittently. 3-Partial/Moderate Assistance-helper does LESS THAN HALF the effort. [place] lifts, holds or supports trunk or limbs, but provides less than half the effort. 2-Substantial/Maximal Assistance-helper does MORE THAN HALF the effort. [place] lifts or holds trunk or limbs and provides more than half the effort. 3-Tpsrcmjyk-gpqwvj does ALL the effort. Patient does none of the effort to complete the activity. Or, the assistance of 2 or more helpers is required for the patient to complete the activity. If activity was not attempted, code reason: 7-Patient Refused. 9-Not Applicable-not attempted and the patient did not perform the activity before the current illness, exacerbation or injury. 10-Not Attempted due to Environmental Limitations-(lack of equipment, weather restraints, etc.). 88-Not Attempted due to Medical Conditions or Safety Concerns. Sit to Stand (QC): 6 Weight Bearing Right Lower Extremity: Right Full Weight Bearing Gait Training Does the Patient Walk?: Yes Distance: 100' x2 Walk 10 feet (QC): 6 Walk 50 ft with 2 Turns(QC): 6 Walk 150 ft (QC): 6 Gait Persons Needed: 0 Gait Assistive Device: None Pt pushes O2 bottle while ambulating. Wheelchair Training Does the Pt Use a Wheelchair?: No Treatments Pt wipes down Prosthetic with alcohol wipes for R LE. Pt attaches Prosthetic and stands for ambulation. Pt amb. in hallway, returning to room at end of walk & sitting EOB. All needs met, call light next to pt. Nurse advises as soon as O2 arrives, pt will d/c. Assessment Current Status: Good Progress Pt is improving distance of ambulation and feels comfortable with Prosthetic. PT Professor Of Business Administration Goals Halfway Goals PT Halfway Goals Time Frame: Apr 23, 2021 Roll Left & Right (QC): 6 Sit to Lying (QC): 6 Lying-Sitting on Side/Bed(QC): 6 Sit to Stand (QC): 4 Chair/Iaq-mx-Nbscw Xfer(QC): 4 Walk 10 feet (QC): 4 PT Plan Problem List Problem List: Activity Tolerance Treatment/Plan Treatment Plan: Continue Plan of Care Treatment Plan: Bed Mobility, Education, Functional Activity Deven, Functional Strength, Gait, Safety, Therapeutic Exercise, Transfers Treatment Duration: Apr 23, 2021 Frequency: 6 times per week Estimated Hrs Per Day: .25 hour per day Patient and/or Family Agrees t: Yes Time/GCodes Time In: 1343 Time Out: 1408 Total Billed Treatment Time: 25 Total Billed Treatment 1, FA (10m) & GT (15m) MIKHAIL REHMAN WILDLIFE CONSERVATION OFFICER Apr 23, 2021 14:20
[2021-04-23 18:00] VITALS: BP 91/53
== END 2021-04-23 18:00 | disposition home or self-care (01) | DRG 871 ==
LOC: ER 07:55 → ICU 10:55 → 4TH 04-21 12:57
PROVIDERS: ADMIT Family Medicine; ATTEND Internal Medicine
DX: A41.9 Sepsis, unspecified organism (principal); J18.9 Pneumonia, unspecified organism; J96.01 Acute respiratory failure with hypoxia; I21.A1 Myocardial infarction type 2; R65.21 Severe sepsis with septic shock; E87.1 Hypo-osmolality and hyponatremia; G93.40 Encephalopathy, unspecified; N17.9 Acute kidney failure, unspecified; N39.0 Urinary tract infection, site not specified; D64.9 Anemia, unspecified; I10 Essential (primary) hypertension; F17.210 Nicotine dependence, cigarettes, uncomplicated; F41.9 Anxiety disorder, unspecified; I95.9 Hypotension, unspecified; R79.89 Other specified abnormal findings of blood chemistry; Z89.512 Acquired absence of left leg below knee; Z79.899 Other long term (current) drug therapy; R74.01 Elevation of levels of liver transaminase levels; B96.20 Unspecified Escherichia coli [E. coli] as the cause of diseases classified elsewhere; B96.4 Proteus (mirabilis) (morganii) as the cause of diseases classified elsewhere; I48.91 Unspecified atrial fibrillation; G40.909 Epilepsy, unspecified, not intractable, without status epilepticus; E66.9 Obesity, unspecified; Z20.822 Contact with and (suspected) exposure to COVID-19; R07.89 Other chest pain; Z68.21 Body mass index [BMI] 21.0-21.9, adult
CPT/HCPCS: 36415; 51702; 70450; 70551; 71045; 71046; 71260; 80048; 80053; 80061; 80306; 81000; 82140; 82274; 82805; 83605; 83735; 83874; 83880; 83930; 83935; 84100; 84145; 84443; 84484; 85007; 85025; 85027; 85379; 85610; 85730; 86141; 87040; 87081; 87088; 87636; 93005; 93041; 93306; 93970; 94640; 94760; 94761; 96361; 96365; 96372; 96375; 96376; 99291